=== PATIENT | male | born 1970 | race Hispanic/Latino ===

== ENCOUNTER 2016-07-07 12:12 | Inpatient (IN) | payer OTHER ==
[2016-07-07 15:10] LABS: Basophils % (Auto) 0.3 % (0.0-1.8); Eosinophils % (Auto) 1.2 % (0.0-4.3); Hematocrit 44.9 % (35.5-45.6); Hemoglobin 14.8 gm/dl (11.8-15.2); Mean Corpuscular HGB Conc 33 % (32-34); Mean Corpuscular Hemoglobin 28 pg (28-32); Mean Corpuscular Volume 85 fl (84-94); Platelet Count 261 K/mm3 (140-440); Red Blood Count 5.26 M/mm3 (3.65-5.03); Red Cell Distribution Width 13.4 % (13.2-15.2); White Blood Count 8.6 K/mm3 (4.5-11.0)
[2016-07-07 15:21] LABS: Anion Gap 17 mmol/L; Blood Urea Nitrogen 18 mg/dL (9-20); Calcium 9.6 mg/dL (8.4-10.2); Carbon Dioxide 26 mmol/L (22-30); Chloride 100.8 mmol/L (98-107); Glucose 74 mg/dL (75-100); Potassium 4.8 mmol/L (3.6-5.0); Sodium 139 mmol/L (137-145)
--- NOTE | 2016-07-07 15:53 | Consultation ---
History of Present Illness Consult date: 07/07/16 Requesting physician: JENN ERAZO Consult reason: chest pain History of present illness: The patient is a 45 year old male who is followed by Dr. Mcgrath in the office with a history of atrial fibrillation s/p ablation, CAD s/p PCI of LCX (04/2016) and RCA (01/2015), hypertension, hypothyroidism, gout who presented with complaints of substernal chest tightness ongoing for the past 2 days. Associated with shortness of breath, nausea and dizziness. He states the pain is worse with exertion and improves with rest. Troponin negative x 1. On 2016 he underwent PCI of 99% ostial circumflex with ANU. Cath revealed left main patent, LAD patent, RCA stent in the right posterolateral branch patent. He states that he has been compliant with all of his medications. Past History Past Medical History: atrial fib (s/p ablation (01/2015)), hypertension, hyperlipidemia, hypothyroidism, other (TIA, gout) Past Surgical History: appendectomy, hernia repair, Other (sinus surgery, afib ablation) Social history: , full code. denies: smoking, alcohol abuse, prescription drug abuse, IV drug use Family history: no significant family history Medications and Allergies Allergies Allergy/AdvReac Type Severity Reaction Status Date / Time moxifloxacin HCl Allergy Rash Verified 03/01/15 10:51 [From Avelox] peanut Allergy Swelling Verified 07/07/16 12:42 sulfamethoxazole Allergy Headache Verified 01/24/15 09:18 [From Bactrim] trimethoprim [From Bactrim] Allergy Headache Verified 03/01/15 10:51 Home Medications Medication Instructions Recorded Confirmed Last Taken Type Allopurinol [Zyloprim] 100 mg PO QDAY 11/06/14 05/09/16 02/26/15 History Cetirizine HCl [ZyrTEC] 10 mg PO DAILY 11/06/14 05/09/16 02/26/15 History Levothyroxine [Synthroid] 75 mcg PO QAM 11/06/14 05/09/16 02/26/15 History Montelukast [Singulair] 10 mg PO QPM 11/06/14 05/07/16 05/07/16 10:00 History 10 mg Diltiazem Cd [Cardizem CD] 180 mg PO QDAY #30 cap 11/07/14 05/09/16 05/06/16 10: 00 Rx 180 mg Apixaban [Eliquis] 5 mg PO BID 01/22/15 05/09/16 02/26/15 History Aspirin EC [Aspirin Enteric Coated 81 mg PO DAILY 03/01/15 05/09/16 02/26/15 History TAB] Cholecalciferol Vit D3 [Vitamin D3] 1 tab PO DAILY 03/01/15 05/09/16 05/06/16 09 :00 History Clopidogrel Bisulfate [Plavix] 75 mg PO DAILY 03/01/15 05/07/16 05/06/16 09:00 History 75 Fenofibrate [Lofibra] 160 mg PO DAILY 03/01/15 05/09/16 02/26/15 History Pantoprazole [Protonix TAB] 40 mg PO DAILY 03/01/15 05/07/16 05/06/16 10:00 History 40 mg Carisoprodol [Soma] 350 mg PO TID 05/07/16 05/07/16 05/07/16 09:00 History 350 mg Celecoxib 500 mg PO BID 05/07/16 05/07/16 05/06/16 09:00 History 500 Ezetimibe [Zetia] 10 mg PO DAILY 05/07/16 05/07/16 05/07/16 10:00 History 10 mg Ezetimibe [Zetia] 10 mg PO DAILY 05/07/16 05/09/16 Unknown History Lisinopril [Zestril TAB] 10 mg PO DAILY 05/07/16 05/07/16 05/06/16 10:00 History 10 mg Percocet 7.5/325 mg 7.5 mg PO PRN 05/07/16 05/07/16 Unknown History methOCARBAMOL [Robaxin TAB] 500 mg PO DAILY 05/07/16 05/07/16 05/06/16 09:00 History Review of Systems Constitutional: no fever, no chills Ears, nose, mouth and throat: no nasal congestion, no nasal discharge, no sinus pressure Cardiovascular: chest pain, shortness of breath Respiratory: shortness of breath, no cough, no congestion, no wheezing Gastrointestinal: nausea, no abdominal pain, no vomiting, no diarrhea, no constipation Genitourinary Male: no dysuria, no hematuria Musculoskeletal: no neck stiffness, no neck pain Integumentary: no rash, no pruritis Neurological: no parathesias, no numbness, no tingling, no headaches Endocrine: no cold intolerance, no heat intolerance Hematologic/Lymphatic: no easy bruising, no easy bleeding Allergic/Immunologic: no urticaria, no wheezing Physical Examination Vital Signs Temp Pulse Resp BP Pulse Ox 97.8 F 85 18 133/83 99 07/07/16 12:43 07/07/16 12:43 07/07/16 12:43 07/07/16 12:43 07/07/16 12:43 General appearance: mild distress (very anxious) HEENT: Positive: Normocephaly, Mucus Membranes Moist Neck: Positive: neck supple, trachea midline Cardiac: Positive: Reg Rate and Rhythm, S1/S2 Lungs: Positive: clear to auscultation Neuro: Positive: Grossly Intact Abdomen: Positive: Soft, Active Bowel Sounds. Negative: Tender Skin: Positive: Clear. Negative: Rash Extremities: Present: normal. Absent: edema Results 07/07/16 14:21 07/07/16 14:21 CBC 07/07/16 Range/Units 14:21 WBC 8.6 (4.5-11.0) K/mm3 RBC 5.26 H (3.65-5.03) M/mm3 Hgb 14.8 (11.8-15.2) gm/dl Hct 44.9 (35.5-45.6) % Plt Count 261 (140-440) K/mm3 Lymph # 1.2 (1.2-5.4) K/mm3 [place] # 0.7 (0.0-0.8) K/mm3 Eos # 0.1 (0.0-0.4) K/mm3 Baso # 0.0 (0.0-0.1) K/mm3 Comprehensive Metabolic Panel 07/07/16 Range/Units 14:21 Sodium 139 (137-145) mmol/L Potassium 4.8 (3.6-5.0) mmol/L Chloride 100.8 (98-107) mmol/L Carbon Dioxide 26 (22-30) mmol/L BUN 18 (9-20) mg/dL Creatinine 0.9 (0.8-1.5) mg/dL Glucose 74 L (75-100) mg/dL Calcium 9.6 (8.4-10.2) mg/dL - Imaging and Cardiology Echo: report reviewed (04/2016: EF 50-55%) EKG: image reviewed EKG interpretations - Telemetry EKG Rhythm: Sinus Rhythm - EKG Sinus rhythms and dysrhythmias: sinus rhythm Assessment and Plan Chest pain first troponin negative, will trend Echo 04/2016: EF 50-55% [facility] 05/09/16: PCI of 99% ostial circumflex with ANU, left main patent, LAD patent, RCA stent in the right posterolateral branch patent IV nitro gtt CAD s/p PCI of distal RCA at [place] (01/2015) and PCI of ostial LCX (04/2016) continue ASA, Plavix, tricor hx. of statin intolerance Atrial fibrillation s/p ablation 01/2015 currently sinus rhythm holding Eliquis if [facility] needed Hypertension stable Hyperlipidemia Hypothyroidism Obtain additional sets of enzymes. Lexiscan thallium stress test in am if enzymes remain negative. The patient has been seen in conjunction with Dr. Chowdhury who agrees with the assessment and plan of care. Thank you Dr. Erazo for allowing us to participate in the care of this patient.
--- NOTE | 2016-07-07 15:59 | Admit Criteria Form ---
Admission Criteria Documentation: CARDIOLOGY GRG Clinical Indications for Admission to Inpatient Care ( Place 'X' for any and all applicable criteria): Hospital admission is needed for appropriate care of the patient because of ANY ONE of the following (1): [ ] I. Hemodynamic instability as indicated by ALL of the following (1)(2)(3) (4)(5) [ ]a) Vital signs or other findings not as expected for chronic patient condition or baseline [ ]b) Instability indicated by ANY ONE of the following: [ ]i) Hypotension [ ]ii) Symptomatic Tachycardia unresponsive to treatment ( e.g., analgesia, fluids, sedation as indicated) [ ]iii) Inadequate perfusion indicated by ANY ONE of the following: [ ] 1) Lactic acidosis (> 2 mmol/L) [ ] 2) New abnormal capillary refill (> 3 seconds) [ ] 3) Reduced urine output [ ] 4) New altered mental status [ ]iv) Orthostatic vital sign changes unresponsive to treatment (e.g., fluids) [ ]v) IV inotropic or vasopressor medication required to maintain adequate blood pressure or perfusion [ ] II. Severe heart failure as indicated by ANY ONE of the following(17)(18) [ ]a) Respiratory distress [ ]b) Hypotension [ ]c) Anasarca (refractory to outpatient therapy) [ ]d) Cardiac arrhythmias of immediate concern [ ]e) Myocardial ischemia [ ] III. Cardiac arrhythmias or findings of immediate concern indicated by ANY ONE of the following (19)(20): [ ] a) Heart rhythms that are inherently dangerous or unstable indicated by ANY ONE of the following (21)(22)(23): [ ] i) Resuscitated ventricular fibrillation or cardiac arrest [ ] ii) Ventricular escape rhythm [ ] iii) Sustained ventricular tachycardia (30 seconds or more of ventricular rhythm at greater than 100 beats per minute) [ ] iv) Nonsustained ventricular tachycardia and ANY ONE of the following: [ ] 1) Suspected cardiac ischemia as cause or consequence of ventricular tachycardia [ ] 2) In setting of acute myocarditis [ ] b) Unstable cardiac conduction defects indicated by ANY ONE of the following(23)(24)(25) [ ] i) Type II second-degree atrioventricular block [ ]ii) Third-degree atrioventricular block [ ]iii) New-onset left bundle branch block with suspected myocardial ischemia [ ]c) Any heart rhythm and ANY ONE of the following (21)(22)(26)(27) (28) [ ] i) Continuous long-term ECG monitoring needed (e.g., initiation of drug requiring monitoring for more than 24 hours) [ ] ii) Patient has automatic implanted cardioverter defibrillator that is repeatedly firing, malfunctioning, or in need of immediate adjustment of settings beyond the scope of ambulatory or observation care [ ]d) Heart rhythms of concern due to ANY ONE of the following: [ ] i) Hypotension [ ] ii) Respiratory distress [ ] iii) Association with other significant symptoms (e.g., bradycardia with syncope or ongoing dizziness, supraventricular tachycardia with chest pain (14)(15)(17) [ ] IV. Monitoring for cardiac contusion beyond the scope of observation care needed [A](30)(31)(32) [ ] V. Surgical or device complication (e.g., valve replacement complication , pacemaker dysfunction) (35)(41)(44)(45)(46) [ ] . Inpatient palliative care needed. [B](49) Also use Inpatient Palliative Care Criteria [ ] VII. Nonbacterial thrombotic (marantic) endocarditis (36)(43)(47)(48) [X ] VIII. Cardiology condition, symptom, or finding for which emergency and observation care has failed or are not considered appropriate. [ ] IX. Acute valvular disease requiring inpatient as indicated by ANY ONE of the following (41) [ ]a) Acute valvular regurgitation (42) [ ]b) Noninfectious valvulitis (43) [ ]c) Obstructive valve thrombosis [ ]d) Paravalvular leak [ ]e) Other significant valvular disorder remaining after emergency or observation level of care (as appropriate) [ ]X. Pericardial disease requiring inpatient treatment as indicated by ANY ONE of the following (33)(34)(35)(36)(37) [ ]a) Suspected tamponade (38)(39)(40) [ ]b) Hemopericardium [ ]c) Other significant pericardial disorder remaining after emergency or observation level of care (as appropriate) [ ] XI. Cardiac ischemia beyond scope of emergency and observation care. [ ] XII. Hypertension requiring inpatient treatment as indicated by ANY ONE of the following (6)(7)(8) [ ]a) SBP greater than 220 mm Hg or DBP greater than 120 mmHg despite treatment [ ]b) SBP greater than 140 mm Hg or DBP greater than 100 mm Hg with evidence of acute end organ damage as indicated by ANY ONE of the following [ ] i) Altered mental status [ ] ii) Acute renal failure as indicated by new onset of ANY ONE of the following (9)(10)(11)(12)(13) [ ]1) 3-fold rise in serum creatinine from baseline [ ]2) Serum creatinine greater than 4 mg/dL ( 354 micromoles/L) with acute rise greater than 0.5 mg/dL (44.2 micromoles/L) [ ]3) Reduction of more than 75% in estimated glomerular filtration rate from baseline [ ]4) Estimated glomerular filtration rate less than 35 mL/min/1.73m2 (0.59 mL/sec/1.73m2) in child up to 18 years of age [ ]5) Cessation of urine output indicated by ALL of the following [ ]A. Adequate volume status [ ]B. Inadequate urine output as indicated by ANY ONE of the following [ ]a. Urine output less than 0.3 mL/kg/hr for 24 hours [ ]b. Anuria (urine output less than 0.1 mL/kg/hr) for 12 hours [ ] iii) Aortic dissection [ ] iv) Myocardial Ischemia [ ] v) Left ventricular heart failure [ ]vi) Retinal Hemorrhage [ ]vii) Other significant finding [ ]c) Hypertension in child requiring inpatient treatment as indicated by ALL of the following(14)(15)(16) [ ] i) Outpatient treatment not effective, not available, or not appropriate [ ]ii) SBP or DBP greater than 95th percentile for age [ ]iii) Evidence of acute end organ damage as indicated by ANY ONE of the following [ ]1) Altered mental status [ ]2) Acute renal failure as indicated by new onset of ANY ONE of the following(9)(10)(11)(12)(13) [ ]A. 3-fold rise in serum creatinine from baseline [ ]B. Serum creatinine greater than 4 mg/dL (354 micromoles/L) with acute rise greater than 0.5 mg/dL (44.2 micromoles/L) [ ]C. Reduction of more than 75% in estimated glomerular filtration rate from baseline [ ]D. Estimated glomerular filtration rate less than 35 mL/min/1.73m2 (0.59 mL/sec/1.73m2) in child up to 18 years of age [ ]E. Cessation of urine output indicated by ALL of the following [ ]a. Adequate volume status [ ]b. Inadequate urine output as indicated by ANY ONE of the following [ ]i) Urine output less than 0.3 mL/kg/hr for 24 hours [ ]ii) Anuria ( urine output less than 0.1 mL/kg/hr) for 12 hours [ ]3) Severe headache [ ]4) Visual disturbance [ ]5) Retinal hemorrhage [ ]6) Other significant finding [ ]XIII. Complications of transplanted heart indicated by ANY ONE of the following(61): [ ]a) Acute graft rejection requiring inpatient management (eg, intravenous immunosuppression)(62)(63) [ ]b) Acute graft heart failure indicated by ANY ONE of the following(64): [ ]i) Hemodynamic instability [ ]ii) Cardiac arrhythmias of immediate concern [ ]iii) Pulmonary edema that is very severe (eg, mechanical ventilation needed, imminent or likely, need for 100% oxygen to keep oxygen saturation above 90%) [ ]iv) Pulmonary edema that is persistent as indicated by ALL of the following: [ ]1) New need for oxygen therapy to keep oxygen saturation above 90% (or increased FiO2 need from baseline) [ ]2) Has not improved sufficiently with emergency department or observation care IV diuretics or other heart failure treatments[E] [ ]v) Altered mental status that is severe or persistent [ ]vi) Increased creatinine (new on laboratory test) with reduction of more than 50% in estimated glomerular filtration rate from baseline [ ]vii) Progressively (ongoing) rising creatinine (known from past laboratory test) with reduction of more than 25% in estimated glomerular filtration rate from baseline [ ]viii) Acute renal failure [ ]ix) Acute peripheral ischemia (eg, examination shows pulseless, cool, mottled, or cyanotic extremity) [ ]x) Pulmonary artery catheter monitoring needed [ ]xi) Other sign or symptom of heart failure requiring inpatient treatment (ie, too severe or not responsive to outpatient and observation care treatment) [ ]c) Infection requiring inpatient management (eg, Hemodynamic instability, need for intravenous antimicrobial treatment)(66)(67)(68)(69)(70) [ ]d) Cardiac allograft vasculopathy requiring inpatient management ( eg evidence of cardiac ischemia)(71) [ ]e) Other complication of transplanted heart (eg, stroke, severe pulmonary hypertension, severe valvular dysfunction) requiring inpatient management(72) The original [facility] content created by [facility] has been revised. The portions of the content which have been revised are identified through the use of italic text or in bold, and [facility] has neither reviewed nor approved the modified material. All other unmodified content is copyright [facility]. Please see references footnoted in the original [facility] edition 2016 Admission Criteria Met: Yes
[2016-07-07] MEDS: MORPHINE IV PRN ×2 (16:32→20:32)
--- NOTE | 2016-07-07 16:35 | Emergency Department Report ---
ED Chest Pain HPI - General Chief Complaint: Chest Pain Stated Complaint: CHEST PAIN/SOB/NAUSEA Time Seen by Provider: 07/07/16 16:19 Source: patient Mode of arrival: Ambulatory Limitations: No Limitations - History of Present Illness MD Complaint: chest pain -: Gradual Onset: during rest Pain Location: substernal Pain Radiation: none Severity: moderate Severity scale (0 -10): 4 Quality: tightness, heaviness Consistency: intermittent Improves With: nothing Worsens With: nothing re: nausea Treatments Prior to Arrival: aspirin, nitroglycerin Aspirin use within the Past 7 Days: (1) Yes - Related Data Home Medications Medication Instructions Recorded Confirmed Last Taken Levothyroxine [Synthroid] 75 mcg PO QAM 11/06/14 07/07/16 02/26/15 Montelukast [Singulair] 10 mg PO QPM 11/06/14 07/07/16 05/07/16 10:00 10 mg Apixaban [Eliquis] 5 mg PO BID 01/22/15 07/07/16 02/26/15 Aspirin EC [Aspirin Enteric Coated 81 mg PO DAILY 03/01/15 07/07/16 02/26/15 TAB] Clopidogrel Bisulfate [Plavix] 75 mg PO DAILY 03/01/15 07/07/16 05/06/16 09:00 75 Fenofibrate [Lofibra] 160 mg PO DAILY 03/01/15 07/07/16 02/26/15 Pantoprazole [Protonix TAB] 40 mg PO DAILY 03/01/15 07/07/16 05/06/16 10:00 40 mg Carisoprodol [Soma] 350 mg PO TID 05/07/16 07/07/16 05/07/16 09:00 350 mg Ezetimibe [Zetia] 10 mg PO DAILY 05/07/16 07/07/16 Unknown Lisinopril [Zestril TAB] 10 mg PO DAILY 05/07/16 07/07/16 05/06/16 10:00 10 mg methOCARBAMOL [Robaxin TAB] 500 mg PO DAILY 05/07/16 07/07/16 05/06/16 09:00 Previous Rx's Medication Instructions Recorded Last Taken Type Diltiazem Cd [Cardizem CD] 180 mg PO QDAY #30 cap 11/07/14 05/06/16 10:00 Rx 180 mg ISOSORBIDE MONOnitrate [Imdur ER] 30 mg PO DAILY #30 tab.er.24h 07/08/16 Unknown Rx Percocet 7.5/325 mg 7.5 mg PO BID PRN #14 07/08/16 Unknown Rx Allergies Allergy/AdvReac Type Severity Reaction Status Date / Time moxifloxacin HCl Allergy Rash Verified 03/01/15 10:51 [From Avelox] peanut Allergy Swelling Verified 07/07/16 12:42 sulfamethoxazole Allergy Headache Verified 01/24/15 09:18 [From Bactrim] trimethoprim [From Bactrim] Allergy Headache Verified 03/01/15 10:51 ROMA score - Roma Score Age > 65: (0) No Aspirin use within the Past 7 Days: (1) Yes 3 or more CAD Risk Factors: (0) No 2 or more Angina events in past 24 hrs: (0) No Known CAD with more than 50% Stenosis: (0) No Elevated Cardiac Markers: (0) No ST Deviation Greater than 0.5mm: (0) No ROMA Score: 1 ED Review of Systems ROS: Stated complaint: CHEST PAIN/SOB/NAUSEA Other details as noted in HPI Comment: All other systems reviewed and negative Constitutional: denies: chills, fever Eyes: denies: eye pain, eye discharge, vision change ENT: denies: ear pain, throat pain Respiratory: denies: cough, shortness of breath, wheezing Cardiovascular: denies: chest pain, palpitations Endocrine: no symptoms reported Gastrointestinal: denies: abdominal pain, nausea, diarrhea Genitourinary: denies: urgency, dysuria Musculoskeletal: denies: back pain, joint swelling, arthralgia Skin: denies: rash, lesions Neurological: denies: headache, weakness, paresthesias Psychiatric: denies: anxiety, depression Hematological/Lymphatic: denies: easy bleeding, easy bruising ED Past Medical Hx - Past Medical History Previous Medical History?: Yes Hx Hypertension: Yes Hx CVA: Yes (TIA x2 in November 2014) Hx Congestive Heart Failure: No Hx Diabetes: No Hx Liver Disease: Yes Hx Sickle Cell Disease: No Hx Asthma: No Hx COPD: No Hx HIV: No Additional medical history: AFIBHYPO THYROIDGOUTHIGH CHOL. cardiac stents x 2 - Surgical History Past Surgical History?: Yes Hx Coronary Stent: Yes (x 2) Additional Surgical History: cardiac albation - Social History Smoking Status: Never Smoker Substance Use Type: None - Medications Home Medications: Home Medications Medication Instructions Recorded Confirmed Last Taken Type Levothyroxine [Synthroid] 75 mcg PO QAM 11/06/14 07/07/16 02/26/15 History Montelukast [Singulair] 10 mg PO QPM 11/06/14 07/07/16 05/07/16 10:00 History 10 mg Diltiazem Cd [Cardizem CD] 180 mg PO QDAY #30 cap 11/07/14 07/07/16 05/06/16 10: 00 Rx 180 mg Apixaban [Eliquis] 5 mg PO BID 01/22/15 07/07/16 02/26/15 History Aspirin EC [Aspirin Enteric Coated 81 mg PO DAILY 03/01/15 07/07/16 02/26/15 History TAB] Clopidogrel Bisulfate [Plavix] 75 mg PO DAILY 03/01/15 07/07/16 05/06/16 09:00 History 75 Fenofibrate [Lofibra] 160 mg PO DAILY 03/01/15 07/07/16 02/26/15 History Pantoprazole [Protonix TAB] 40 mg PO DAILY 03/01/15 07/07/16 05/06/16 10:00 History 40 mg Carisoprodol [Soma] 350 mg PO TID 05/07/16 07/07/16 05/07/16 09:00 History 350 mg Ezetimibe [Zetia] 10 mg PO DAILY 05/07/16 07/07/16 Unknown History Lisinopril [Zestril TAB] 10 mg PO DAILY 05/07/16 07/07/16 05/06/16 10:00 History 10 mg methOCARBAMOL [Robaxin TAB] 500 mg PO DAILY 05/07/16 07/07/16 05/06/16 09:00 History ISOSORBIDE MONOnitrate [Imdur ER] 30 mg PO DAILY #30 tab.er.24h 07/08/16 Unknown Rx Percocet 7.5/325 mg 7.5 mg PO BID PRN #14 07/08/16 Unknown Rx ED Physical Exam - General Limitations: No Limitations General appearance: alert, in no apparent distress - Head Head exam: Present: atraumatic, normocephalic - Eye Eye exam: Present: normal appearance - ENT ENT exam: Present: mucous membranes moist - Neck Neck exam: Present: normal inspection - Respiratory Respiratory exam: Present: normal lung sounds bilaterally. Absent: respiratory distress - Cardiovascular Cardiovascular Exam: Present: regular rate, normal rhythm. Absent: systolic murmur, diastolic murmur, rubs, gallop - GI/Abdominal GI/Abdominal exam: Present: soft, normal bowel sounds - Rectal Rectal exam: Present: deferred - Extremities Exam Extremities exam: Present: normal inspection - Back Exam Back exam: Present: normal inspection - Neurological Exam Neurological exam: Present: alert, oriented X3 - Psychiatric Psychiatric exam: Present: normal affect, normal mood - Skin Skin exam: Present: warm, dry, intact, normal color. Absent: rash ED Course Vital Signs 07/07/16 07/07/16 07/07/16 12:43 13:18 14:00 Temperature 97.8 F Pulse Rate 85 92 H 78 Respiratory 18 20 18 Rate Blood Pressure 133/83 111/67 Blood Pressure [Left] O2 Sat by Pulse 99 94 97 Oximetry 07/07/16 07/07/16 07/07/16 14:08 14:09 15:00 Temperature 98.1 F Pulse Rate 75 81 Respiratory 16 16 17 Rate Blood Pressure 118/73 Blood Pressure 111/64 [Left] O2 Sat by Pulse 99 99 99 Oximetry 07/07/16 07/07/16 07/07/16 16:00 16:32 17:02 Temperature Pulse Rate 91 H Respiratory 15 18 18 Rate Blood Pressure 133/89 Blood Pressure [Left] O2 Sat by Pulse 97 Oximetry 07/07/16 07/07/16 07/07/16 17:17 18:00 19:00 Temperature Pulse Rate 86 78 82 Respiratory 16 14 16 Rate Blood Pressure 119/68 113/52 113/75 Blood Pressure [Left] O2 Sat by Pulse 97 97 95 Oximetry 07/07/16 07/07/16 07/07/16 20:00 20:32 21:00 Temperature Pulse Rate 79 75 Respiratory 17 18 15 Rate Blood Pressure 116/75 121/72 Blood Pressure [Left] O2 Sat by Pulse 97 98 Oximetry 07/07/16 07/07/16 07/07/16 21:02 22:00 22:57 Temperature Pulse Rate 109 H 84 Respiratory 18 15 Rate Blood Pressure 109/64 109/63 Blood Pressure [Left] O2 Sat by Pulse 95 Oximetry 07/07/16 07/07/16 07/07/16 23:00 23:20 23:21 Temperature Pulse Rate 81 84 Respiratory 11 L 13 18 Rate Blood Pressure 100/73 120/84 Blood Pressure [Left] O2 Sat by Pulse 95 97 Oximetry 07/07/16 23:30 Temperature Pulse Rate 90 Respiratory 15 Rate Blood Pressure 120/84 Blood Pressure [Left] O2 Sat by Pulse 95 Oximetry ED Medical Decision Making - Lab Data Result diagrams: 07/07/16 14:21 07/08/16 04:40 - EKG Data Interpretation: no acute changes - Medical Decision Making patient doing well in the ER , pain at 04/29 , consulted cards and agree with admission. significant cardiac history and describing same chest pain as the same as prior [place], first set of enzymes negative Critical care time in (mins) excluding proc time.: 35 Critical care attestation.: If time is entered above; I have spent that time in minutes in the direct care of this critically ill patient, excluding procedure time. ED Disposition Clinical Impression: Chest pain Qualifiers: Qualified Code(s): R07.89 - Other chest pain Disposition: OP ADMITTED IP TO THIS HOSP Is pt being admited?: Yes Does the pt Need Aspirin: Yes Condition: Good Time of Disposition: 16:34
[2016-07-07] MEDS ORDERED: TRIDIL DRIP 50MG/250ML 50 MG/250 ML BOTTLE IV SCH (17:00)
[2016-07-07] MEDS ORDERED: PERCOCET PO PRN (20:50)
--- NOTE | 2016-07-07 20:50 | History and Physical Report ---
History of Present Illness Date of examination: 07/07/16 Date of admission: 07/07/16 Chief complaint: L sided Chest pain. since 2 days History of present illness: The patient is a 45 year old male who is followed by Dr. Mcgrath in the office with a history of atrial fibrillation s/p ablation, CAD s/p PCI of LCX (04/2016) and RCA (01/2015), hypertension, hypothyroidism, gout who presented with complaints of substernal chest tightness ongoing for the past 2 days. Associated with shortness of breath, nausea and dizziness. He states the pain is worse with exertion and improves with rest. Troponin negative x 1. On 2016 he underwent PCI of 99% ostial circumflex with ANU. Cath revealed left main patent, LAD patent, RCA stent in the right posterolateral branch patent. He states that he has been compliant with all of his medications. Pain is 10/10. Past History Past Medical History: atrial fib (s/p ablation (01/2015)), hypertension, hyperlipidemia, hypothyroidism, other (TIA, gout) Past Surgical History: appendectomy, hernia repair, Other (sinus surgery, afib ablation) Social history: , full code. denies: smoking, alcohol abuse, prescription drug abuse, IV drug use Family history: no significant family history Medications and Allergies Allergies Allergy/AdvReac Type Severity Reaction Status Date / Time moxifloxacin HCl Allergy Rash Verified 03/01/15 10:51 [From Avelox] peanut Allergy Swelling Verified 07/07/16 12:42 sulfamethoxazole Allergy Headache Verified 01/24/15 09:18 [From Bactrim] trimethoprim [From Bactrim] Allergy Headache Verified 03/01/15 10:51 Home Medications Medication Instructions Recorded Confirmed Last Taken Type Levothyroxine [Synthroid] 75 mcg PO QAM 11/06/14 07/07/16 02/26/15 History Montelukast [Singulair] 10 mg PO QPM 11/06/14 07/07/16 05/07/16 10:00 History 10 mg Diltiazem Cd [Cardizem CD] 180 mg PO QDAY #30 cap 11/07/14 07/07/16 05/06/16 10: 00 Rx 180 mg Apixaban [Eliquis] 5 mg PO BID 01/22/15 07/07/16 02/26/15 History Aspirin EC [Aspirin Enteric Coated 81 mg PO DAILY 03/01/15 07/07/16 02/26/15 History TAB] Clopidogrel Bisulfate [Plavix] 75 mg PO DAILY 03/01/15 07/07/16 05/06/16 09:00 History 75 Fenofibrate [Lofibra] 160 mg PO DAILY 03/01/15 07/07/16 02/26/15 History Pantoprazole [Protonix TAB] 40 mg PO DAILY 03/01/15 07/07/16 05/06/16 10:00 History 40 mg Carisoprodol [Soma] 350 mg PO TID 05/07/16 07/07/16 05/07/16 09:00 History 350 mg Ezetimibe [Zetia] 10 mg PO DAILY 05/07/16 07/07/16 Unknown History Lisinopril [Zestril TAB] 10 mg PO DAILY 05/07/16 07/07/16 05/06/16 10:00 History 10 mg Percocet 7.5/325 mg 7.5 mg PO BID PRN 05/07/16 07/07/16 Unknown History methOCARBAMOL [Robaxin TAB] 500 mg PO DAILY 05/07/16 07/07/16 05/06/16 09:00 History Active Meds: Active Medications Aspirin (Baby Aspirin) 81 mg PO DAILY DEJA Clopidogrel Bisulfate (Plavix) 75 mg PO DAILY DEJA Nitroglycerin/Dextrose (Tridil Drip 50mg/250ml) 50 mg in 250 mls @ 3 mls/hr IV TITR DEJA; 10 MCG/MIN PRN Reason: Protocol Morphine Sulfate (Morphine) 2 mg IV Q4H PRN PRN Reason: Pain Last Admin: 07/07/16 20:32 Dose: 2 mg Review of Systems All systems: negative Constitutional: no weight loss, no weight gain Ears, nose, mouth and throat: no nasal discharge, no sinus pressure, no sinus pain, no hoarseness, no sore throat Cardiovascular: chest pain, shortness of breath Respiratory: no cough, no cough with sputum Gastrointestinal: no nausea, no vomiting, no diarrhea, no constipation Genitourinary Male: no hematuria, no flank pain, no discharge, no urinary frequency, no urinary hesitancy Musculoskeletal: no neck stiffness, no neck pain Integumentary: no rash, no pruritis, no redness Neurological: no seizures, no syncope Psychiatric: no anxiety, no depression Endocrine: no cold intolerance, no heat intolerance, no polyphagia, no excessive thirst Hematologic/Lymphatic: no easy bruising, no easy bleeding Allergic/Immunologic: no urticaria, no allergic rhinitis, no wheezing Exam - Physical Exam Narrative exam: Well developed well nourished male in slight distress b/c of chest pain - Constitutional Vitals: Temp Pulse Resp BP Pulse Ox 98.1 F 79 18 116/75 97 07/07/16 14:08 07/07/16 20:00 07/07/16 20:32 07/07/16 20:00 07/07/16 20:00 General appearance: Present: no acute distress, well-nourished - EENT Eyes: Present: PERRL ENT: hearing intact, clear oral mucosa - Neck Neck: Present: supple, normal ROM - Respiratory Respiratory effort: normal Respiratory: bilateral: CTA - Cardiovascular Rhythm: regular Heart Sounds: Present: S1 & S2. Absent: rub, click - Extremities Extremities: pulses symmetrical, No edema Peripheral Pulses: within normal limits - Abdominal General gastrointestinal: Present: soft, non-tender, non-distended, normal bowel sounds Male genitourinary: Present: normal - Rectal Rectal Exam: deferred - Integumentary Integumentary: Present: clear, warm, dry - Musculoskeletal Musculoskeletal: gait normal, strength equal bilaterally - Psychiatric Psychiatric: appropriate mood/affect, intact judgment & insight - Neurologic Neurologic: CNII-XII intact, moves all extremities - Allied Health Allied health notes reviewed: nursing, case management Results - Labs CBC & Chem 7: 07/07/16 14:21 07/08/16 04:40 Labs: Laboratory Last Values WBC 8.6 K/mm3 (4.5-11.0) 07/07/16 14:21 RBC 5.26 M/mm3 (3.65-5.03) H 07/07/16 14:21 Hgb 14.8 gm/dl (11.8-15.2) 07/07/16 14:21 Hct 44.9 % (35.5-45.6) 07/07/16 14:21 MCV 85 fl (84-94) 07/07/16 14:21 MCH 28 pg (28-32) 07/07/16 14:21 MCHC 33 % (32-34) 07/07/16 14:21 RDW 13.4 % (13.2-15.2) 07/07/16 14:21 Plt Count 261 K/mm3 (140-440) 07/07/16 14:21 Lymph % (Auto) 14.1 % (13.4-35.0) 07/07/16 14:21 Cochran % (Auto) 8.2 % (0.0-7.3) H 07/07/16 14:21 Eos % (Auto) 1.2 % (0.0-4.3) 07/07/16 14:21 Baso % (Auto) 0.3 % (0.0-1.8) 07/07/16 14:21 Lymph # 1.2 K/mm3 (1.2-5.4) 07/07/16 14:21 Cochran # 0.7 K/mm3 (0.0-0.8) 07/07/16 14:21 Eos # 0.1 K/mm3 (0.0-0.4) 07/07/16 14:21 Baso # 0.0 K/mm3 (0.0-0.1) 07/07/16 14:21 Seg Neutrophils % 76.2 % (40.0-70.0) H 07/07/16 14:21 Seg Neutrophils # 6.5 K/mm3 (1.8-7.7) 07/07/16 14:21 Sodium 139 mmol/L (137-145) 07/07/16 14:21 Potassium 4.8 mmol/L (3.6-5.0) 07/07/16 14:21 Chloride 100.8 mmol/L (98-107) 07/07/16 14:21 Carbon Dioxide 26 mmol/L (22-30) 07/07/16 14:21 Anion Gap 17 mmol/L 07/07/16 14:21 BUN 18 mg/dL (9-20) 07/07/16 14:21 Creatinine 0.9 mg/dL (0.8-1.5) 07/07/16 14:21 Estimated GFR > 60 ml/min 07/07/16 14:21 BUN/Creatinine Ratio 20.00 % 07/07/16 14:21 Glucose 74 mg/dL (75-100) L 07/07/16 14:21 Calcium 9.6 mg/dL (8.4-10.2) 07/07/16 14:21 Troponin T < 0.010 ng/mL (0.00-0.029) 07/07/16 18:52 Short CBC 07/07/16 Range/Units 14:21 WBC 8.6 (4.5-11.0) K/mm3 Hgb 14.8 (11.8-15.2) gm/dl Hct 44.9 (35.5-45.6) % Plt Count 261 (140-440) K/mm3 [facility] 07/07/16 14:21 Sodium 139 Potassium 4.8 Chloride 100.8 Carbon Dioxide 26 BUN 18 Creatinine 0.9 Glucose 74 L Calcium 9.6 Cardiac Enzymes 07/07/16 07/07/16 07/07/16 Range/Units 14:21 15:13 18:52 Troponin T < 0.010 < 0.010 < 0.010 (0.00-0.029) ng/mL Short CBC 07/07/16 Range/Units 14:21 WBC 8.6 (4.5-11.0) K/mm3 Hgb 14.8 (11.8-15.2) gm/dl Hct 44.9 (35.5-45.6) % Plt Count 261 (140-440) K/mm3 [facility] 07/07/16 07/08/16 14:21 04:40 Sodium 139 140 Potassium 4.8 4.7 Chloride 100.8 104.8 Carbon Dioxide 26 26 BUN 18 19 Creatinine 0.9 1.0 Glucose 74 L 91 Calcium 9.6 8.9 Cardiac Enzymes 07/07/16 07/07/16 07/07/16 Range/Units 14:21 15:13 18:52 Total Creatine Kinase (55-170) units/L CK-MB (CK-2) (0.0-4.0) ng/mL Troponin T < 0.010 < 0.010 < 0.010 (0.00-0.029) ng/mL 07/07/16 07/08/16 Range/Units 21:12 04:40 Total Creatine Kinase 112 102 (55-170) units/L CK-MB (CK-2) 1.7 1.6 (0.0-4.0) ng/mL Troponin T < 0.010 < 0.010 (0.00-0.029) ng/mL Liver Function 07/08/16 Range/Units 04:40 Total Bilirubin 0.3 (0.1-1.2) mg/dL AST 18 (5-40) units/L ALT 33 (7-56) units/L Alkaline Phosphatase 55 (35-129) units/L Albumin 4.2 (3.9-5) g/dL - Imaging and Cardiology EKG: report reviewed (NSR.No A fib.No acute ST T wave changes) Assessment and Plan Advance Directives: Yes (Full code) VTE prophylaxis?: Chemical Plan of care discussed with patient/family: Yes - Patient Problems (1) Angina pectoris, unstable Current Visit: Yes Status: Acute Plan to address problem: On IV Nitro -To ICU Chest pain first troponin negative, will trend Echo 04/2016: EF 50-55% [facility] 05/09/16: PCI of 99% ostial circumflex with ANU, left main patent, LAD patent, RCA stent in the right posterolateral branch patent IV nitro gtt (2) CAD (coronary artery disease) Current Visit: Yes Status: Chronic Qualifiers: Coronary Disease-Associated Artery/Lesion type: C [place] vs. transplanted heart: N Associated angina: with unstable angina Plan to address problem: CAD s/p PCI of distal RCA at [place] (01/2015) and PCI of ostial LCX (04/2016) continue ASA, Plavix, tricor hx. of statin intolerance (3) HTN (hypertension) Current Visit: No Status: Chronic Qualifiers: Hypertension type: essential hypertension Qualified Code(s): I10 - Essential (primary) hypertension Plan to address problem: Cont Diltiazem (4) Hypothyroidism Current Visit: No Status: Chronic Qualifiers: Hypothyroidism type: acquired Qualified Code(s): E03.9 - Hypothyroidism, unspecified Plan to address problem: Cont Synthyroid (5) Afib Current Visit: Yes Status: Resolved Qualifiers: Atrial fibrillation type: A Plan to address problem: Resolved (6) DVT prophylaxis Current Visit: Yes Status: Acute
[2016-07-07] MEDS ORDERED: MILK OF MAGNESIA PO PRN (20:52)
[2016-07-07] MEDS ORDERED: DULCOLAX PR PRN (20:52)
[2016-07-07] MEDS ORDERED: ZOFRAN IV PRN (20:52)
[2016-07-07] MEDS ORDERED: TYLENOL PO PRN (20:52)
[2016-07-07] MEDS ORDERED: SODIUM CHLORIDE FLUSH SYRINGE 10 ML IV PRN (20:55)
[2016-07-07] MEDS ORDERED: NON-FORMULARY (Fenofibrate [Lofibra] 160 MG) PO SCH (21:00)
[2016-07-07] MEDS ORDERED: D5NS 1,000 ML IV SCH (21:02)
[2016-07-07] MEDS ORDERED: PERCOCET 5/325 PO PRN (21:10)
[2016-07-07] MEDS: CARDIZEM CD PO SCH (22:00)
[2016-07-07] MEDS: ZETIA PO SCH (22:00)
[2016-07-07] MEDS ORDERED: ELIQUIS PO SCH (22:00)
[2016-07-07 22:08] LABS: Creatine Kinase MB 1.7 ng/mL (0.0-4.0)
[2016-07-07 22:10] LABS: Creatine Kinase 112 units/L (55-170)
[2016-07-07] MEDS ORDERED: PLAVIX ONE (22:49)
[2016-07-07] MEDS ORDERED: BABY ASPIRIN ONE (22:49)
[2016-07-07] MEDS ORDERED: PROTONIX PO ONE (22:49)
[2016-07-07] MEDS: HALFPRIN EC PO SCH (22:57)
[2016-07-07] MEDS: PROTONIX PO SCH (22:57)
[2016-07-07] MEDS: ZESTRIL PO SCH (22:57)
[2016-07-07] MEDS: PLAVIX PO SCH (22:58)
[2016-07-07] MEDS ORDERED: DILAUDID ONE (23:04)
[2016-07-07] MEDS: DILAUDID IV PRN (23:21)
[2016-07-08] MEDS: DILAUDID IV PRN ×3 (04:48→15:14)
[2016-07-08 05:51] LABS: Creatine Kinase MB 1.6 ng/mL (0.0-4.0)
[2016-07-08 05:54] LABS: Creatine Kinase 102 units/L (55-170)
[2016-07-08 05:55] LABS: Alanine Aminotransferase 33 units/L (7-56); Albumin 4.2 g/dL (3.9-5); Albumin/Globulin Ratio 1.8 %; Alkaline Phosphatase 55 units/L (35-129); Bilirubin,Total 0.3 mg/dL (0.1-1.2); Blood Urea Nitrogen 19 mg/dL (9-20); Calcium 8.9 mg/dL (8.4-10.2); Carbon Dioxide 26 mmol/L (22-30); Glucose 91 mg/dL (75-100); Total Protein 6.6 g/dL (6.3-8.2)
[2016-07-08 05:56] LABS: Anion Gap 14 mmol/L; Chloride 104.8 mmol/L (98-107); Potassium 4.7 mmol/L (3.6-5.0); Sodium 140 mmol/L (137-145)
[2016-07-08] MEDS ORDERED: SYNTHROID PO SCH (06:00)
--- NOTE | 2016-07-08 08:54 | Progress Note ---
Assessment and Plan Unstable angina troponin negative x 4 Echo 04/2016: EF 50-55% [facility] 05/09/16: PCI of 99% ostial circumflex with ANU, left main patent, LAD patent, RCA stent in the right posterolateral branch patent IV nitro gtt given persistent pain, will proceed with [facility] for definitive diagnosis CAD s/p PCI of distal RCA at [place] (01/2015) and PCI of ostial LCX (04/2016) continue ASA, Plavix, tricor hx. of statin intolerance Atrial fibrillation s/p ablation 01/2015 currently sinus rhythm holding Eliquis if [facility] needed Hypertension stable Hyperlipidemia Hypothyroidism Await left heart cath findings. The patient has been seen in conjunction with Dr. Chowdhury who agrees with the assessment and plan of care. Subjective Date of service: 07/08/16 Principal diagnosis: unstable angina Interval history: The patient is resting in bed. He continues to c/o substernal chest pain that waxes and wanes, currently 10/27. Nitro gtt at 20mcg/min. Sinus rhythm on the monitor. Objective Last Vital Signs Temp 97.7 F 07/08/16 08:00 Pulse 72 07/08/16 09:00 Resp 10 L 07/08/16 09:00 BP 117/73 07/08/16 09:00 Pulse Ox 97 07/08/16 09:00 - Physical Examination General: No Apparent Distress HEENT: Positive: Normocephaly, Mucus Membranes Moist Neck: Positive: neck supple, trachea midline Cardiac: Positive: Reg Rate and Rhythm, S1/S2 Lungs: Positive: clear to auscultation Neuro: Positive: Grossly Intact Abdomen: Positive: Soft, Active Bowel Sounds. Negative: Tender Skin: Positive: Clear. Negative: Rash Extremities: Present: normal. Absent: edema - Labs and Meds Cardiac Enzymes 07/07/16 07/08/16 07/08/16 Range/Units 21:12 04:40 04:40 AST 18 (5-40) units/L CK-MB (CK-2) 1.7 1.6 (0.0-4.0) ng/mL Comprehensive Metabolic Panel 07/08/16 Range/Units 04:40 Sodium 140 (137-145) mmol/L Potassium 4.7 (3.6-5.0) mmol/L Chloride 104.8 (98-107) mmol/L Carbon Dioxide 26 (22-30) mmol/L BUN 19 (9-20) mg/dL Creatinine 1.0 (0.8-1.5) mg/dL Glucose 91 (75-100) mg/dL Calcium 8.9 (8.4-10.2) mg/dL AST 18 (5-40) units/L ALT 33 (7-56) units/L Alkaline Phosphatase 55 (35-129) units/L Total Protein 6.6 (6.3-8.2) g/dL Albumin 4.2 (3.9-5) g/dL - Imaging and Cardiology EKG: report reviewed (NSR.No A fib.No acute ST T wave changes) Echo: report reviewed (04/2016: EF 50-55%) - Telemetry EKG Rhythm: Sinus Rhythm - EKG Sinus rhythms and dysrhythmias: sinus rhythm
[2016-07-08] MEDS ORDERED: NACL 0.9% 500 ML 500 ML IV SCH (09:00)
[2016-07-08] MEDS ORDERED: ROBAXIN PO SCH (10:00)
[2016-07-08] MEDS ORDERED: BABY ASPIRIN PO SCH (10:00)
[2016-07-08] MEDS ORDERED: TRICOR PO SCH (10:00)
[2016-07-08] MEDS ORDERED: PLAVIX PO SCH (10:00)
[2016-07-08 10:11] LABS: INR 1.03 (0.87-1.13)
[2016-07-08 10:13] LABS: Partial Thromboplastin Time 26.4 Sec. (24.2-36.6)
--- NOTE | 2016-07-08 11:05 | Consultation ---
History of Present Illness Consult date: 07/08/16 Requesting physician: DENNIS GREY History of present illness: PULMONARY/CCM CONSULT NOTE (Full dictation # [id number]) Please see dictated notes for full details Past History Past Medical History: atrial fib (s/p ablation (01/2015)), hypertension, hyperlipidemia, hypothyroidism, other (TIA, gout) Past Surgical History: appendectomy, hernia repair, Other (sinus surgery, afib ablation) Social history: , full code. denies: smoking, alcohol abuse, prescription drug abuse, IV drug use Family history: no significant family history Medications and Allergies Allergies Allergy/AdvReac Type Severity Reaction Status Date / Time moxifloxacin HCl Allergy Rash Verified 03/01/15 10:51 [From Avelox] peanut Allergy Swelling Verified 07/07/16 12:42 sulfamethoxazole Allergy Headache Verified 01/24/15 09:18 [From Bactrim] trimethoprim [From Bactrim] Allergy Headache Verified 03/01/15 10:51 Home Medications Medication Instructions Recorded Confirmed Last Taken Type Levothyroxine [Synthroid] 75 mcg PO QAM 11/06/14 07/07/16 02/26/15 History Montelukast [Singulair] 10 mg PO QPM 11/06/14 07/07/16 05/07/16 10:00 History 10 mg Diltiazem Cd [Cardizem CD] 180 mg PO QDAY #30 cap 11/07/14 07/07/16 05/06/16 10: 00 Rx 180 mg Apixaban [Eliquis] 5 mg PO BID 01/22/15 07/07/16 02/26/15 History Aspirin EC [Aspirin Enteric Coated 81 mg PO DAILY 03/01/15 07/07/16 02/26/15 History TAB] Clopidogrel Bisulfate [Plavix] 75 mg PO DAILY 03/01/15 07/07/16 05/06/16 09:00 History 75 Fenofibrate [Lofibra] 160 mg PO DAILY 03/01/15 07/07/16 02/26/15 History Pantoprazole [Protonix TAB] 40 mg PO DAILY 03/01/15 07/07/16 05/06/16 10:00 History 40 mg Carisoprodol [Soma] 350 mg PO TID 05/07/16 07/07/16 05/07/16 09:00 History 350 mg Ezetimibe [Zetia] 10 mg PO DAILY 05/07/16 07/07/16 Unknown History Lisinopril [Zestril TAB] 10 mg PO DAILY 05/07/16 07/07/16 05/06/16 10:00 History 10 mg methOCARBAMOL [Robaxin TAB] 500 mg PO DAILY 05/07/16 07/07/16 05/06/16 09:00 History ISOSORBIDE MONOnitrate [Imdur ER] 30 mg PO DAILY #30 tab.er.24h 07/08/16 Unknown Rx Percocet 7.5/325 mg 7.5 mg PO BID PRN #14 07/08/16 Unknown Rx Active Meds: Active Medications Acetaminophen (Tylenol) 650 mg PO Q4H PRN PRN Reason: Pain MILD(1-3)/Fever >100.5/FRANCOIS Apixaban (Eliquis) 5 mg PO BID [facility] Aspirin (Halfprin Ec) 81 mg PO DAILY [facility] Last Admin: 07/07/16 22:57 Dose: 81 mg Bisacodyl (Dulcolax) 10 mg MI QDAY PRN PRN Reason: Constipation unrelieved by MOM Carisoprodol (Soma) 350 mg PO TID [facility] Clopidogrel Bisulfate (Plavix) 75 mg PO DAILY [facility] Last Admin: 07/07/16 22:58 Dose: 75 mg Diltiazem HCl (Cardizem Cd) 180 mg PO QDAY [facility] Last Admin: 07/07/16 22:00 Dose: 180 mg Ezetimibe (Zetia) 10 mg PO DAILY [facility] Last Admin: 07/07/16 22:00 Dose: 10 mg Fenofibrate (Tricor) 145 mg PO DAILY [facility] Hydromorphone HCl (Dilaudid) 0.5 mg IV Q3H PRN PRN Reason: Pain , Severe (7-10) Last Admin: 07/08/16 08:45 Dose: 0.5 mg Nitroglycerin/Dextrose (Tridil Drip 50mg/250ml) 50 mg in 250 mls @ 3 mls/hr IV TITR DEJA; 10 MCG/MIN PRN Reason: Protocol Last Admin: 07/07/16 21:11 Dose: 10 mcg/min, 3 mls/hr Dextrose/Sodium Chloride (D5ns) 1,000 mls @ 75 mls/hr IV DIRECT DEJA Last Admin: 07/08/16 02:20 Dose: 75 mls/hr Sodium Chloride (Nacl 0.9% 500 Ml) 500 mls @ 50 mls/hr IV DIRECT DEJA Stop: 07/08/16 18:59 Levothyroxine Sodium (Synthroid) 75 mcg PO 0600 [facility] Last Admin: 07/08/16 06:17 Dose: 75 mcg Lisinopril (Zestril) 10 mg PO DAILY [facility] Last Admin: 07/07/16 22:57 Dose: Not Given Magnesium Hydroxide (Milk Of Magnesia) 30 ml PO Q4H PRN PRN Reason: Constipation Methocarbamol (Robaxin) 500 mg PO DAILY [facility] Montelukast Sodium (Singulair) 10 mg PO QPM [facility] Morphine Sulfate (Morphine) 2 mg IV Q4H PRN PRN Reason: Pain, Moderate (4-6) Last Admin: 07/07/16 20:32 Dose: 2 mg Ondansetron HCl (Zofran) 4 mg IV Q8H PRN PRN Reason: N/V unrelieved by Sindhu Last Admin: 07/08/16 06:17 Dose: 4 mg Oxycodone/Acetaminophen (Percocet 5/325) 1.5 tab PO BID PRN PRN Reason: Pain, Moderate (4-6) Pantoprazole Sodium (Protonix) 40 mg PO DAILY [facility] Last Admin: 07/07/16 22:57 Dose: 40 mg Sodium Chloride (Sodium Chloride Flush Syringe 10 Ml) 10 ml IV PRN PRN PRN Reason: LINE FLUSH Physical Examination Vital signs: Vital Signs Temp Pulse Resp BP Pulse Ox 97.8 F 85 18 133/83 99 07/07/16 12:43 07/07/16 12:43 07/07/16 12:43 07/07/16 12:43 07/07/16 12:43 Results - Laboratory Findings CBC and BMP: 07/07/16 14:21 07/08/16 04:40 PT/INR, D-dimer PT 13.4 Sec. (12.2-14.9) 07/08/16 09:23 INR 1.03 (0.87-1.13) 07/08/16 09:23
[2016-07-08] MEDS ORDERED: HEPARIN/NS 5000 UNIT/500ML(CATH LAB) 1,000 ML IR ONE (11:21)
[2016-07-08] MEDS ORDERED: XYLOCAINE 2% INFILTRATI ONE (11:22)
[2016-07-08] MEDS ORDERED: VERSED ONE (11:23)
[2016-07-08] MEDS ORDERED: ZOFRAN ONE (11:24)
[2016-07-08] MEDS ORDERED: SUBLIMAZE ONE (11:24)
[2016-07-08] MEDS: CALAN ONE ×2 (11:43→11:53)
[2016-07-08] MEDS: HEPARIN 10,000 UNITS/10 ML ONE ×2 (11:43→11:53)
[2016-07-08] MEDS: NITROGLYCERIN SYRINGE 3 ML ONE ×2 (11:43→11:53)
[2016-07-08] MEDS ORDERED: NACL 0.9% 1000 ML 0 ML ONE (11:56)
--- NOTE | 2016-07-08 13:24 | XRay Report ---
PORTABLE CHEST: An AP portable view of the chest demonstrates a normal cardiac contour considering the limits of this technique. The lungs are clear with no evidence of infiltrate, fluid or failure. IMPRESSION: Normal portable chest.
[2016-07-08] MEDS: SOMA PO SCH ×2 (13:34)
--- NOTE | 2016-07-08 13:45 | Cardiac Catherization Report ---
CARDIAC CATHETERIZATION REFERRING PHYSICIANS: 1. Radu Holley MD 2. Kee Chowdhury MD INDICATION FOR LEFT HEART CATHETERIZATION: The patient is a pleasant 45-year-old gentleman with recurrent chest pain, multiple PCIs, history of arrhythmia ablation, comes in with typical chest pain, on going waxing and waning. States it is very similar to previous episodes. Cardiac enzymes negative. Given his recent PCI and refractory symptoms of medications, he is referred for left heart catheterization. Risks, benefits, and alternatives discussed at length prior to obtaining informed consent. PROCEDURE IN DETAIL: The patient was brought to catheterization lab in postabsorptive state, prepped and draped in sterile fashion. Joaquín's test in right hand was normal. A 2 mL of 2% lidocaine used to anesthetize the right wrist. A standard 6-Welsh hydrophilic sheath used to cannulate the right radial artery via modified Seldinger technique. All exchanges performed to exchange a J-tip guidewire. JL3.5 catheter was used to engage the left main. No dampening or ventricularization. Cineangiography performed in all projections. JR4 catheter used to cross the aortic valve under fluoroscopic guidance. Left ventriculography performed in 30 [place]AR[place] and 30 [place] projections via hand injections, catheter flushed. Manual pullback performed with continuous pressure monitoring. Catheter used to engage the right coronary. No dampening or ventricularization. Cineangiography performed in multiple projections. Catheter removed from body of wire, sheath removed. Manual pressure used to achieve hemostasis. DATA: Aortic pressure is 110/70, LV pressure is 110, LVEDP of 9 mmHg. Left ventriculography revealed normal systolic performance with estimated ejection fraction of 55-60%. No evidence of aortic stenosis. CORONARY ANATOMY: This is a strongly right dominant system. Right coronary is a large vessel, courses AV groove, distally bifurcates in the posterior descending and posterolateral branch. No significant stenosis identified. Left main is a moderate sized vessel, no significant disease, bifurcates into left anterior descending and left circumflex. LAD is a moderate sized vessel, courses anterior intergroove, wraps around the apex, no significant disease in the LAD or diagonal system. Left circumflex is a moderate sized vessel, courses AV groove, proximal left circumflex stent is widely patent, no in-stent restenosis, ROMA 3 flow throughout. It should also be noted there is a patent stent in the right posterolateral branch. CONCLUSIONS: 1. No angiographic evidence of significant epicardial coronary artery disease in the strongly right dominant system. 2. Patent proximal left circumflex stent, which was recently placed. 3. Patent right posterolateral branch stent. 4. Normal left ventricular systolic performance. 5. No evidence of aortic stenosis. 6. Normal LVEDP. Recommend risk factor modification, diet and lifestyle modification and medication compliance. Results of the procedure were explained at length to the patient and his who is a nurse here as well. All questions and concerns were addressed. JOB# [id number] CATARINO/JAMES
[2016-07-08] MEDS ORDERED: ZOFRAN IV PRN (14:00)
--- NOTE | 2016-07-08 15:15 | Nuclear Medicine Report ---
LUNG SCAN, VENTILATION AND PERFUSION: History: Chest pain. Technique: 5mci of Tc99m MAA was infused for the perfusion images. 15mci XE 133 gas was inhaled for the ventilatory images. Correlation is made with a chest x-ray dated 07/08/16. Findings: Inhalation of Xenon gas demonstrates a normal distribution of the activity throughout both lungs. The wash out phases show no focal retention of activity. After injection of Technetium 99m macroaggregated albumin gamma camera imaging of the lungs in multiple projections demonstrates normal pulmonary contours with a homogeneous distribution of activity. No focal areas of perfusion deficiency are identified. IMPRESSION: Low probability for pulmonary embolus.
[2016-07-08] MEDS: CARDIZEM CD PO SCH (15:34)
[2016-07-08] MEDS: PLAVIX PO SCH (15:35)
[2016-07-08] MEDS: HALFPRIN EC PO SCH (15:35)
[2016-07-08] MEDS: PROTONIX PO SCH (15:35)
[2016-07-08] MEDS: ZESTRIL PO SCH (15:36)
[2016-07-08] MEDS: ZETIA PO SCH (15:36)
--- NOTE | 2016-07-08 16:12 | Discharge Summary ---
Providers - Providers Date of Admission: 07/07/16 20:52 Attending physician: EMI DUARTE MD 07/07/16 Consult to Cardiac Rehabilitation [CONS] Routine Reason For Exam: Phase I 07/07/16 20:56 Consult to Physician [CONS] Routine Consulting Provider: JESUS VALE Reason For Exam: cad Place consult to:: angeline lopez Notified:: yes 07/08/16 08:19 Consult to Physician [CONS] Routine Consulting Provider: PAULA COLON Reason For Exam: Chest pain Place consult to:: Angeline Lopez Notified:: yes Phone number called:: [phone] Was contact made?: Yes Comment:: notified 07/07/16 07/08/16 11:06 Consult to Physician [CONS] Routine Consulting Provider: ALIN RIGGINS Reason For Exam: CRITICAL CARE Place consult to:: DR. RIGGINS Notified:: YES 07/08/16 13:19 Consult to Cardiac Rehabilitation [CONS] Routine Reason For Exam: Cardiac Rehab Evaluation Primary care physician: [employer] Hospitalization Condition: Good Hospital course: 45-year-old male with a past medical history of coronary artery disease with a history of recent cardiac stents. He presented with 1 day of chest pain, serial troponins were negative and hence ruled out for ACS. He went on to have a VQ scan that was low probability for PE, and then he had left heart cath that was negative for any new significant obstructive disease, and stents was patent. Cardiology: [facility], medical management was recommended, and nitrate was added. Of note he was continued on the rest of his home medications for treatment of hypertension, hypothyroidism and paroxysmal atrial fibrillation Diagnosis 1. Chest pain due to CAD 2. Hypertension 3. Paroxysmal atrial fibrillation 4. Hypothyroidism Disposition: DISCHARGED TO HOME OR SELFCARE Time spent for discharge: 35 minutes Core Measure Documentation - Palliative Care Palliative Care/ Comfort Measures: Not Applicable - Core Measures Any of the following diagnoses?: none Exam - Constitutional Vitals: Temp Pulse Resp BP Pulse Ox 98 F 72 14 129/75 97 07/08/16 12:45 07/08/16 15:36 07/08/16 15:16 07/08/16 15:36 07/08/16 15:16 General appearance: Present: no acute distress, well-nourished - EENT Eyes: Present: PERRL ENT: hearing intact, clear oral mucosa - Neck Neck: Present: supple, normal ROM - Respiratory Respiratory effort: normal Respiratory: bilateral: CTA - Cardiovascular Heart Sounds: Present: S1 & S2. Absent: rub, click - Extremities Extremities: pulses symmetrical, No edema Peripheral Pulses: within normal limits - Abdominal General gastrointestinal: Present: soft, non-tender, non-distended, normal bowel sounds Male genitourinary: Present: normal - Integumentary Integumentary: Present: clear, warm, dry - Musculoskeletal Musculoskeletal: gait normal, strength equal bilaterally - Psychiatric Psychiatric: appropriate mood/affect, intact judgment & insight - Neurologic Neurologic: CNII-XII intact, moves all extremities Plan Follow up with: PRIMARY CARE, [Primary Care Provider] - 3-5 Days Forms: Work/School Release Form Prescriptions: ISOSORBIDE MONOnitrate [Imdur ER] 30 mg PO DAILY #30 tab.er.24h Percocet 7.5/325 mg 7.5 mg PO BID PRN #14 PRN Reason: Pain
[2016-07-08] MEDS ORDERED: IMDUR PO SCH (17:00)
[2016-07-08 17:47] VITALS: BP 128/72
[2016-07-08] MEDS ORDERED: SINGULAIR PO SCH (18:00)
--- NOTE | 2016-07-10 01:48 | Consultation ---
CONSULTING PHYSICIAN: Delfina Ontiveros MD REASON FOR CONSULTATION: Acute coronary syndrome. CHIEF COMPLAINT AND HISTORY OF PRESENT ILLNESS: The patient is a 45-year-old male with past medical history significant amongst other things for a diagnosis of coronary artery disease, status post percutaneous intervention of left circumflex in 04/2016, also history of hypertension, came into the Emergency Room complaining of substernal chest tightness with nausea and vomiting, had been going on for a couple of days, was getting worse. He developed shortness of breath, dizziness on the day he presented, it seemed like his prior angina symptoms. He was evaluated in the Emergency Room. Troponin was negative. He required transfer to the laborer beam house and post-laborer beam house came into the Intensive Care Unit where I stopped by to see him. Reportedly, coronaries were clean. He stated that the chest pain was still present, but a little bit better, no longer having any nausea. He does have a 20+ pack year tobacco smoking history. According to the patient, at one point smoking up to 3 packs of cigarettes a day. That really was the history of presentation. PAST MEDICAL HISTORY: Hypertension, hyperlipidemia, hypothyroidism, transient ischemic attack in the past, gout, history of atrial fibrillation, status post ablation in 01/2015. PAST SURGICAL HISTORY: He has had an appendectomy, herniorrhaphy, and sinus surgery. MEDICATIONS: He was on at the time I stopped by to see him, according to the medication administration record included the following: Tylenol 650 mg p.o. q.4h. p.r.n., Eliquis 5 mg p.o. b.i.d., aspirin 81 mg p.o. daily, p.r.n. Dulcolax, Soma 350 mg p.o. t.i.d., Plavix 75 mg p.o. daily, Cardizem 180 mg p.o. daily extended release, Zetia 10 mg p.o. daily, Tricor 145 mg p.o. daily, and he was just coming off IV heparin drip, Imdur 30 mg p.o. daily, Levoxyl 75 mcg p.o. daily, p.r.n. milk of magnesia, Zestril 10 mg p.o. daily, Robaxin 500 mg p.o. daily, Singulair 10 mg p.o. at bedtime, had been on a Tridil drip earlier. Zofran 4 mg IV q.8 hours p.r.n., Protonix 40 mg p.o. daily, Percocet 5/325 mg p.o. b.i.d. p.r.n. moderate pain. ALLERGIES: , to peanuts, to Bactrim. Nature of this allergy is unknown. DIET: Slightly obese gentleman. Denies any significant weight loss or gain in the preceding few weeks to months. FAMILY AND SOCIAL HISTORY: He is , lives in the community. A 20+ pack year tobacco smoking history, remote. No longer smokes. Denies alcohol or illicit drug use or abuse. REVIEW OF SYSTEMS: No loss of consciousness. No new onset seizures. No new onset focal weakness. No gross hematochezia or melena. No gross hematuria or dysuria. No hematemesis. No hemoptysis. No palpitations. Complete review of systems obtained. Pertinent positives and/or negatives as in body of history above, otherwise noncontributory. PHYSICAL EXAMINATION: VITAL SIGNS: At initial presentation, he was afebrile, temperature 97.8, pulse was 85, respiratory rate was 18, blood pressure was oxygen sats were 99%, inspired oxygen concentration was not recorded. HEAD, EYES, EARS, NOSE, AND THROAT: Pupils are equal, round, reactive to light, about 3-4 mm. Extraocular muscle movements were intact. NECK: Grossly, there were no palpable lymph nodes in the supraclavicular or submandibular lymph node chains. LUNGS: Auscultation of both lung mi was unremarkable. Lungs were clear bilaterally. HEART: Heart sounds 1 and 2 were heard, regular rate and rhythm at the time of my evaluation. ABDOMEN: Soft, full, bowel sounds were positive, nontender. EXTREMITIES: Without overt digital clubbing, cyanosis, or pedal edema. NEUROLOGIC: The exam was grossly nonfocal. LABORATORY DATA: From my review are as follows: White cell count 8600 with a hemoglobin of 14.8, hematocrit of 44.9, platelets of 261. INR 1.03. Serum sodium was 139, potassium 4.8, chloride 101, BUN 18, creatinine 0.9, glucose 74. Troponin, cardiac enzymes negative. RADIOGRAPHIC STUDIES: I do not have any for review. ASSESSMENT AND PLAN: We have a middle-aged gentleman in with an acute coronary syndrome, appears this might not be cardiac related. I do think that we need to broaden differential a little bit. I will do a quick venosus thromboembolic disorder workup. We will go ahead and get a V/Q scan right away and make sure that we are not dealing with the pulmonary embolus as a cause of the symptoms. Otherwise, I would defer to the admitting physicians and the assisted living assistant for further management. He will be on GI and DVT prophylaxis. Flu and pneumonia vaccination will be per protocol. Thank you very much for the consult Dr. Ontiveros. We will follow along and make further recommendations as picture progresses/becomes clearer. JOB# [id number] RAYA/JAMES
== END 2016-07-08 18:15 | disposition home or self-care (01) | DRG 287 ==
LOC: ED 12:12 → CC1 20:52
PROVIDERS: ADMIT Internal Medicine; ATTEND Internal Medicine
PROC: B2151ZZ Fluoroscopy of Left Heart using Low Osmolar Contrast (ICD-10-PCS; principal; 2016-07-08)
PROC: 4A023N7 Measurement of Cardiac Sampling and Pressure, Left Heart, Percutaneous Approach (ICD-10-PCS; principal; 2016-07-08)
PROC: B2111ZZ Fluoroscopy of Multiple Coronary Arteries using Low Osmolar Contrast (ICD-10-PCS; principal; 2016-07-08)
DX: I25.110 Atherosclerotic heart disease of native coronary artery with unstable angina pectoris (principal); I10 Essential (primary) hypertension; I48.91 Unspecified atrial fibrillation; E03.9 Hypothyroidism, unspecified; Z88.8 Allergy status to other drugs, medicaments and biological substances; Z79.82 Long term (current) use of aspirin; E78.5 Hyperlipidemia, unspecified; Z86.73 Personal history of transient ischemic attack (TIA), and cerebral infarction without residual deficits
CPT/HCPCS: 36415; 71010; 78582; 80048; 80053; 82550; 82553; 82962; 83036; 84484; 85025; 85379; 85610; 85730; 93005; 93010; 93458; 96374; 96375; A9540; A9558; C1894; J1170; J1644; J2250; J2270; J2405; J3010; J7030; J7042; Q9967

== ENCOUNTER 2017-01-08 14:14 | Inpatient (IN) | payer OTHER ==
--- NOTE | 2017-01-08 14:51 | History and Physical Report ---
History of Present Illness Date of examination: 01/08/17 Date of admission: 01/08/17 14:14 Chief complaint: CC Chest pain 2 days Palpitations 2 days. History of present illness: OMAHA: 46 y/o male with Hx of A fib HTN HLD Hypothyroidism obesity and back pain sent from [facility] for recurrent Chest pain and palpitations of 2 days duration.Pain is worse when palpitations occur.no diaphoresis.No SOB.Pain is 7/10 dull in character. No radiation.Retrosternal.Noexacerbating or relieving factors Past History Past Medical History: atrial fib, CAD, hypertension, hyperlipidemia, hypothyroidism Past Surgical History: No surgical history Social history: lives with family, smoking, full code Family history: hypertension Medications and Allergies Allergies Allergy/AdvReac Type Severity Reaction Status Date / Time moxifloxacin HCl Allergy Rash Verified 03/01/15 10:51 [From Avelox] peanut Allergy Swelling Verified 07/07/16 12:42 sulfamethoxazole Allergy Headache Verified 01/24/15 09:18 [From Bactrim] trimethoprim [From Bactrim] Allergy Headache Verified 03/01/15 10:51 Home Medications Medication Instructions Recorded Confirmed Last Taken Type Levothyroxine [Synthroid] 75 mcg PO QAM 11/06/14 07/07/16 01/08/17 09:00 History Montelukast [Singulair] 10 mg PO QPM 11/06/14 07/07/16 01/07/17 22:00 History Diltiazem Cd [Cardizem CD] 180 mg PO QDAY #30 cap 11/07/14 07/07/16 01/07/17 22: 00 Rx Apixaban [Eliquis] 5 mg PO BID 01/22/15 07/07/16 01/08/17 09:00 History Clopidogrel Bisulfate [Plavix] 75 mg PO DAILY 03/01/15 07/07/16 01/07/17 22:00 History Fenofibrate [Lofibra] 160 mg PO DAILY 03/01/15 07/07/16 01/07/17 22:00 History Pantoprazole [Protonix TAB] 40 mg PO DAILY 03/01/15 07/07/16 01/07/17 22:00 History Carisoprodol [Soma] 350 mg PO QID 05/07/16 07/07/1601/08/17 09:00 History Ezetimibe [Zetia] 10 mg PO DAILY 05/07/16 07/07/16 01/08/17 09:00 History Lisinopril [Zestril TAB] 10 mg PO DAILY 05/07/16 07/07/16 01/08/17 09:00 History Percocet 7.5/325 mg 7.5 mg PO BID PRN #14 07/08/16 01/07/17 12:00 Rx Gabapentin 600 PO TID 01/08/17 01/08/17 15:00 History Testosterone Cypionate 01/08/17 12/31/16 22:00 History ZyrTEC 10 mg PO DAILY 01/08/17 01/08/17 01/07/17 22:00 History Review of Systems All systems: negative Constitutional: no weight loss, no weight gain, no fever, no chills Ears, nose, mouth and throat: no dysphagia, no hoarseness, no sore throat Cardiovascular: chest pain, palpitations, rapid/irregular heart beat, lightheadedness, shortness of breath Respiratory: no cough, no cough with sputum, no excessive sputum, no hemoptysis , no shortness of breath, no dyspnea on exertion Gastrointestinal: no abdominal pain, no nausea, no vomiting, no diarrhea, no constipation, no change in bowel habits, no hematemesis, no coffee ground emesis Genitourinary Male: no dysuria, no hematuria, no flank pain, no discharge, no urinary frequency, no urinary hesitancy, no nocturia, no incontinence, no erectile dysfunction, no genital pain Rectal: no pain Musculoskeletal: no neck stiffness, no neck pain, no shooting arm pain, no arm numbness/tingling, no low back pain, no shooting leg pain, no leg numbness/ tingling Integumentary: no rash, no pruritis, no redness, no sores Neurological: no head injury, no transient paralysis, no paralysis, no weakness , no seizures, no syncope Psychiatric: no anxiety, no memory loss, no change in sleep habits, no sleep disturbances, no insomnia Endocrine: no cold intolerance, no heat intolerance, no polyphagia, no excessive thirst, no polydipsia, no polyuria Exam - Constitutional General appearance: Present: no acute distress, well-nourished - EENT Eyes: Present: PERRL ENT: hearing intact, clear oral mucosa - Neck Neck: Present: supple, normal ROM - Respiratory Respiratory effort: normal Respiratory: bilateral: CTA - Cardiovascular Heart rate: 80 (A fib) Rhythm: irregularly irregular Heart Sounds: Present: S1 & S2. Absent: rub, click - Extremities Extremities: no ischemia, pulses intact, pulses symmetrical, No edema Peripheral Pulses: within normal limits - Abdominal General gastrointestinal: Present: soft, non-tender, non-distended, normal bowel sounds Male genitourinary: Present: normal - Rectal Rectal Exam: deferred - Integumentary Integumentary: Present: clear, warm, dry - Musculoskeletal Musculoskeletal: gait normal, strength equal bilaterally - Psychiatric Psychiatric: appropriate mood/affect, intact judgment & insight - Neurologic Neurologic: CNII-XII intact, moves all extremities - Allied Health Allied health notes reviewed: nursing, case management Results - Labs CBC & Chem 7: 01/09/17 05:19 01/09/17 05:08 - Imaging and Cardiology EKG: report reviewed Assessment and Plan Advance Directives: Yes (Full code) VTE prophylaxis?: Chemical Plan of care discussed with patient/family: Yes - Patient Problems (1) Unstable angina Current Visit: No Status: Acute Plan to address problem: Defer to cardiology Patient to be on IV Heparin Cont Diltiazem Cath in AM (2) Atrial fibrillation, rapid Current Visit: No Status: Acute Plan to address problem: Patient on Diltiazem.Eliquis on Hold.Cont Plavix For Cath in AM (3) Hypothyroidism (acquired) Current Visit: Yes Status: Chronic Plan to address problem: Cont Levothroxine (4) HLD (hyperlipidemia) Current Visit: Yes Status: Chronic Qualifiers: Hyperlipidemia type: mixed hyperlipidemia Qualified Code(s): E78.2 - Mixed hyperlipidemia Plan to address problem: Cont Zetia and Fenofibrate (5) HTN (hypertension) Current Visit: Yes Status: Chronic Qualifiers: Hypertension type: essential hypertension Qualified Code(s): I10 - Essential (primary) hypertension Plan to address problem: Cont antihypertensives (6) Chronic pain Current Visit: Yes Status: Chronic Qualifiers: Chronic pain type: other chronic pain Qualified Code(s): G89.29 - Other chronic pain Plan to address problem: Cont Percocet (7) DVT prophylaxis Current Visit: No Status: Acute Plan to address problem: On Lovenox/Heparin
[2017-01-08] MEDS ORDERED: DULCOLAX PR PRN ×2 (14:52→15:20)
[2017-01-08] MEDS ORDERED: ZOFRAN IV PRN (14:52)
[2017-01-08] MEDS ORDERED: TYLENOL PO PRN ×2 (14:52→15:20)
[2017-01-08] MEDS ORDERED: MILK OF MAGNESIA PO PRN ×2 (14:52→15:20)
[2017-01-08] MEDS ORDERED: PERCOCET 5/325 PO PRN (14:52)
[2017-01-08] MEDS ORDERED: AMBIEN PO PRN ×2 (14:52→15:20)
[2017-01-08] MEDS ORDERED: NACL 0.45% 1000 ML 1,000 ML IV SCH (15:00)
[2017-01-08] MEDS: PERCOCET 5/325 PO PRN ×2 (16:20→21:51)
[2017-01-08 16:27] LABS: Basophils % (Auto) 0.5 % (0.0-1.8); Eosinophils % (Auto) 2.1 % (0.0-4.3); Hematocrit 43.8 % (35.5-45.6); Hemoglobin 14.3 gm/dl (11.8-15.2); Mean Corpuscular HGB Conc 33 % (32-34); Mean Corpuscular Hemoglobin 29 pg (28-32); Mean Corpuscular Volume 88 fl (84-94); Platelet Count 243 K/mm3 (140-440); Red Blood Count 5.01 M/mm3 (3.65-5.03); Red Cell Distribution Width 14.3 % (13.2-15.2); White Blood Count 5.6 K/mm3 (4.5-11.0)
[2017-01-08 16:41] LABS: INR 1.11 (0.87-1.13); Partial Thromboplastin Time 27.5 Sec. (24.2-36.6)
[2017-01-08 16:48] LABS: Creatine Kinase MB 1.8 ng/mL (0.0-4.0)
[2017-01-08 16:49] LABS: Alanine Aminotransferase 36 units/L (7-56); Albumin 4.6 g/dL (3.9-5); Albumin/Globulin Ratio 1.9 %; Alkaline Phosphatase 68 units/L (35-129); Anion Gap 18 mmol/L; BUN/Creatinine Ratio 14.44; Blood Urea Nitrogen 13 mg/dL (9-20); Calcium 9.3 mg/dL (8.4-10.2); Carbon Dioxide 24 mmol/L (22-30); Glucose 114 mg/dL (75-100); Potassium 4.1 mmol/L (3.6-5.0); Sodium 140 mmol/L (137-145)
[2017-01-08 16:50] LABS: Creatine Kinase 166 units/L (55-170)
[2017-01-08] MEDS: NACL 0.45% 1000 ML 1,000 ML IV SCH (17:04)
--- NOTE | 2017-01-08 17:54 | Event Note ---
Date: 01/08/17 -[address] changes -start nitropaste ASA/Plavix Hold Eliquis Now NPO after midnight start heparin gtt 5AM
[2017-01-08] MEDS: PEPCID IV SCH (21:40)
[2017-01-08] MEDS: ZOFRAN IV PRN (21:55)
[2017-01-08] MEDS ORDERED: PEPCID IV SCH (22:00)
[2017-01-08 22:29] LABS: Creatine Kinase 139 units/L (55-170); Creatine Kinase MB 1.4 ng/mL (0.0-4.0)
[2017-01-09 06:20] LABS: Anion Gap 15 mmol/L; Blood Urea Nitrogen 14 mg/dL (9-20); Calcium 8.6 mg/dL (8.4-10.2); Carbon Dioxide 26 mmol/L (22-30); Chloride 104.9 mmol/L (98-107); Glucose 113 mg/dL (75-100); Potassium 3.7 mmol/L (3.6-5.0); Sodium 142 mmol/L (137-145)
[2017-01-09 06:20] LABS: Hematocrit 41.8 % (35.5-45.6); Hemoglobin 13.7 gm/dl (11.8-15.2); Mean Corpuscular HGB Conc 33 % (32-34); Mean Corpuscular Hemoglobin 29 pg (28-32); Mean Corpuscular Volume 88 fl (84-94); Platelet Count 219 K/mm3 (140-440); Red Blood Count 4.78 M/mm3 (3.65-5.03); Red Cell Distribution Width 14.1 % (13.2-15.2); White Blood Count 5.6 K/mm3 (4.5-11.0)
[2017-01-09 06:26] LABS: Creatine Kinase MB 1.4 ng/mL (0.0-4.0)
[2017-01-09 06:27] LABS: Creatine Kinase 115 units/L (55-170)
[2017-01-09 06:30] LABS: INR 1.07 (0.87-1.13)
[2017-01-09] MEDS: PERCOCET 5/325 PO PRN ×2 (08:34→17:40)
[2017-01-09] MEDS: ROXICODONE PO PRN ×2 (08:35→17:41)
[2017-01-09] MEDS: NEURONTIN PO SCH ×3 (10:00→20:03)
[2017-01-09] MEDS: LOVENOX SUB-Q SCH (10:00)
[2017-01-09] MEDS: SOMA PO SCH ×4 (10:00→21:36)
[2017-01-09] MEDS ORDERED: LOVENOX SUB-Q SCH (10:00)
--- NOTE | 2017-01-09 10:08 | Cat Scan Report ---
FINAL REPORT EXAM: CT CHEST W CON HISTORY: chest pain radiating to back, r/o dissection TECHNIQUE: CTA of chest with IV contrast. Coronal and sagittal and MIP reconstructed images provided. PRIORS: None currently available. FINDINGS: No pneumothorax. No effusion. No consolidation. No endobronchial lesion. No significant pulmonary nodules. Mild bibasilar dependent subsegmental atelectasis. Main pulmonary arteries are unremarkable. No pulmonary embolus. No aortic aneurysm. No dissection. Heart size unremarkable. No pericardial effusion. There is no axillary adenopathy. There is no hilar or mediastinal mass or adenopathy. Images of the esophagus are unremarkable. Heterogenous thyroid gland. Nodules not excluded but evaluation with thyroid ultrasound recommended if clinically indicated. No suspicious osseous lesions on this limited examination of the skeleton. Metastatic disease better evaluated with bone scan. Degenerative changes are present in the spine. IMPRESSION: No acute findings.
[2017-01-09] MEDS ORDERED: LEXISCAN IV ONE ×2 (10:10→10:12)
[2017-01-09] MEDS: ZOFRAN IV PRN ×2 (11:49→20:12)
[2017-01-09] MEDS ORDERED: ZOFRAN ONE (11:51)
--- NOTE | 2017-01-09 11:59 | Consultation ---
History of Present Illness Consult date: 01/09/17 Requesting physician: DENNIS GREY Consult reason: chest pain History of present illness: 46-year-old gentleman with a past medical history of coronary artery disease status post stent to the right coronary artery and left circumflex artery stent in April 2016, paroxysmal atrial fibrillation status post pulmonary vein isolation in December 2014, hypoglycemia, transient ischemic attack, hypothyroidism and gout presents complaining of chest pain with associated shortness of breath. The patient reports that the chest pain is severe and radiating to his back. The patient had a CTA of the chest which did not reveal any pulmonary embolus or aortic dissection. EKG did not reveal any acute changes. Cardiac enzymes are negative. Past History Past Medical History: atrial fib, CAD, hypertension, hyperlipidemia, hypothyroidism Past Surgical History: No surgical history Social history: lives with family, smoking, full code Family history: hypertension Medications and Allergies Allergies Allergy/AdvReac Type Severity Reaction Status Date / Time moxifloxacin HCl Allergy Rash Verified 03/01/15 10:51 [From Avelox] peanut Allergy Swelling Verified 07/07/16 12:42 sulfamethoxazole Allergy Headache Verified 01/24/15 09:18 [From Bactrim] trimethoprim [From Bactrim] Allergy Headache Verified 03/01/15 10:51 Home Medications Medication Instructions Recorded Confirmed Last Taken Type Levothyroxine [Synthroid] 75 mcg PO QAM 11/06/14 01/09/17 01/08/17 09:00 History Montelukast [Singulair] 10 mg PO QPM 11/06/14 01/09/17 01/07/17 22:00 History Diltiazem Cd [Cardizem CD] 180 mg PO QDAY #30 cap 11/07/14 01/09/17 01/07/17 22: 00 Rx Apixaban [Eliquis] 5 mg PO BID 01/22/15 01/09/17 01/08/17 09:00 History Clopidogrel Bisulfate [Plavix] 75 mg PO DAILY 03/01/15 01/09/17 01/07/17 22:00 History Fenofibrate [Lofibra] 160 mg PO DAILY 03/01/15 01/09/17 01/07/17 22:00 History Pantoprazole [Protonix TAB] 40 mg PO DAILY 03/01/15 01/09/17 01/07/17 22:00 History Carisoprodol [Soma] 350 mg PO QID 05/07/16 01/09/17 01/08/17 09:00 History Ezetimibe [Zetia] 10 mg PO DAILY 05/07/16 01/09/17 01/08/17 09:00 History Lisinopril [Zestril TAB] 10 mg PO DAILY 05/07/16 01/09/17 01/08/17 09:00 History Gabapentin [Neurontin] 600 mg PO Q8H 01/08/17 01/09/17 01/08/17 15:00 History ISOSORBIDE MONOnitrate [Imdur ER] 30 mg PO DAILY 01/09/17 01/09/17 1 Day Ago History Active Meds: Active Medications Acetaminophen (Tylenol) 650 mg PO Q4H PRN PRN Reason: Pain MILD(1-3)/Fever >100.5/FRANCOIS Last Admin: 01/08/17 19:55 Dose: 650 mg Bisacodyl (Dulcolax) 10 mg UT QDAY PRN PRN Reason: Constipation unrelieved by MOM Carisoprodol (Soma) 350 mg PO QID [facility] Clopidogrel Bisulfate (Plavix) 75 mg PO DAILY [facility] Diltiazem HCl (Cardizem Cd) 180 mg PO QDAY [facility] Ezetimibe (Zetia) 10 mg PO DAILY [facility] Enoxaparin Sodium (Lovenox) 40 mg SUB-Q QDAY [facility] Famotidine (Pepcid) 20 mg IV BID [facility] Last Admin: 01/08/17 21:40 Dose: 20 mg Fenofibrate (Tricor) 145 mg PO DAILY [facility] Gabapentin (Neurontin) 600 mg PO TID [facility] Sodium Chloride (Nacl 0.45% 1000 Ml) 1,000 mls @ 42 mls/hr IV DIRECT [facility] Last Admin: 01/08/17 17:04 Dose: 42 mls/hr Influenza Virus Vaccine Quadrival (Fluarix Quad [id number](36 Mos+)) 0.5 ml IM .ONCE ONE Stop: 01/09/17 12:01 Levothyroxine Sodium (Synthroid) 75 mcg PO QAM@0600 [facility] Lisinopril (Zestril) 10 mg PO DAILY [facility] Magnesium Hydroxide (Milk Of Magnesia) 30 ml PO Q4H PRN PRN Reason: Constipation Montelukast Sodium (Singulair) 10 mg PO QPM [facility] Nitroglycerin (Nitro-Bid 2%) 1 inch TP BIDNTG DEJA PRN Reason: Protocol Ondansetron HCl (Zofran) 4 mg IV Q8H PRN PRN Reason: N/V unrelieved by Reglan Last Admin: 01/09/17 11:49 Dose: 4 mg Oxycodone HCl (Roxicodone) 2.5 mg PO BID PRN PRN Reason: Pain, Moderate (4-6) Last Admin: 01/09/17 08:35 Dose: 2.5 mg Oxycodone/Acetaminophen (Percocet 5/325) 1 tab PO BID PRN PRN Reason: Pain Last Admin: 01/09/17 08:34 Dose: 1 tab Pantoprazole Sodium (Protonix) 40 mg PO DAILY [facility] Zolpidem Tartrate (Ambien) 5 mg PO QHS PRN PRN Reason: Insomnia Review of Systems Constitutional: weight gain, no weight loss, no fever, no chills, no sweats Ears, nose, mouth and throat: no nasal congestion, no nasal discharge Cardiovascular: chest pain, orthopnea, edema, lightheadedness, shortness of breath, no palpitations, no syncope Respiratory: no cough, no excessive sputum, no hemoptysis Gastrointestinal: no abdominal pain, no nausea, no vomiting Genitourinary Male: no hematuria, no flank pain Rectal: no pain Musculoskeletal: no neck stiffness, no neck pain Integumentary: no rash, no pruritis Neurological: no paralysis, no weakness Psychiatric: anxiety Allergic/Immunologic: no allergic rhinitis, no wheezing Physical Examination Vital Signs Temp Pulse Resp BP Pulse Ox 98.4 F 83 22 114/69 97 01/08/17 16:56 01/08/17 16:56 01/08/17 16:56 01/08/17 16:56 01/08/17 16:56 General appearance: no acute distress HEENT: Positive: PERRL, EOMI Neck: Positive: neck supple, trachea midline Cardiac: Positive: Reg Rate and Rhythm Lungs: Positive: Normal Exam, clear to auscultation Neuro: Positive: Grossly Intact Abdomen: Positive: Unremarkable, Soft, Active Bowel Sounds Male genitourinary: Positive: deferred Skin: Negative: Rash Extremities: Present: normal, warm. Absent: edema Results 01/09/17 05:19 01/09/17 05:08 Cardiac Enzymes 01/08/17 01/08/17 01/08/17 Range/Units 16:07 16:15 21:40 AST 24 (5-40) units/L CK-MB (CK-2) 1.8 1.4 (0.0-4.0) ng/mL 01/09/17 Range/Units 05:08 AST (5-40) units/L CK-MB (CK-2) 1.4 (0.0-4.0) ng/mL Coagulation 01/08/17 01/09/17 Range/Units 16:16 05:19 PT 14.2 13.8 (12.2-14.9) Sec. INR 1.11 1.07 (0.87-1.13) APTT 27.5 (24.2-36.6) Sec. CBC 01/08/17 01/09/17 Range/Units 16:07 05:19 WBC 5.6 5.6 (4.5-11.0) K/mm3 RBC 5.01 4.78 (3.65-5.03) M/mm3 Hgb 14.3 13.7 (11.8-15.2) gm/dl Hct 43.8 41.8 (35.5-45.6) % Plt Count 243 219 (140-440) K/mm3 Lymph # 1.1 L (1.2-5.4) K/mm3 [place] # 0.6 (0.0-0.8) K/mm3 Eos # 0.1 (0.0-0.4) K/mm3 Baso # 0.0 (0.0-0.1) K/mm3 Comprehensive Metabolic Panel 01/08/17 01/09/17 Range/Units 16:15 05:08 Sodium 140 142 (137-145) mmol/L Potassium 4.1 3.7 (3.6-5.0) mmol/L Chloride 102.0 104.9 (98-107) mmol/L Carbon Dioxide 24 26 (22-30) mmol/L BUN 13 14 (9-20) mg/dL Creatinine 0.9 1.0 (0.8-1.5) mg/dL Glucose 114 H 113 H (75-100) mg/dL Calcium 9.3 8.6 (8.4-10.2) mg/dL AST 24 (5-40) units/L ALT 36 (7-56) units/L Alkaline Phosphatase 68 (35-129) units/L Total Protein 7.0 (6.3-8.2) g/dL Albumin 4.6 (3.9-5) g/dL - Imaging and Cardiology Echo: report reviewed (ECHO 05/06: EF 50-55%, mild MR) Cardiac cath: report reviewed (07/04: No angio sig epicardial disease, patent stent prox LCX, patent stent rt posterolateral branch, normal LV function, normal LVEDP) EKG interpretations - Telemetry EKG Rhythm: Sinus Rhythm Assessment and Plan 46-year-old male with past medical history of coronary disease status post drug- eluting stent to the mid right coronary artery drug eluting stent to the proximal left circumflex artery in April 2016, paroxysmal atrial fibrillation status post H of fibrillation ablation in December, history of hypoglycemia, transient ischemic attack, hypothyroidism, and gout who presents with chest pain /acute coronary syndrome. A 12-lead EKG does not reveal any stress-induced ischemia. Cardiac enzymes are negative. I am recommending a stress test to evaluate for any stress-induced ischemia.
[2017-01-09] MEDS ORDERED: Fluarix Quad 2017-2018(36 MOS+) IM ONE (12:00)
[2017-01-09] MEDS: NITRO-BID 2% TP SCH (13:28)
[2017-01-09] MEDS: MORPHINE IV PRN ×2 (13:29→20:04)
--- NOTE | 2017-01-09 13:37 | Progress Note ---
Assessment and Plan Assessment and plan: Chest pain. Cardiology consultation. Patient for cardiac catheterization. Continue IV heparin. Atrial fibrillation with RVR. Continue Cardizem per cardiology. Eliquis on hold. Continue Plavix. Hyperlipidemia. Continue home medications. Hypertension. Continue home antihypertensive medications. Hypothyroidism. hx TIA DVT prophylaxis. Patient currently on heparin. History Interval history: No new issues overnight. Hospitalist Physical - Constitutional Vitals: Temp Pulse Resp BP Pulse Ox 97.4 F L 98 H 19 143/90 97 01/09/17 05:08 01/09/17 11:47 01/09/17 05:08 01/09/17 11:47 01/09/17 05:08 General appearance: Present: no acute distress - EENT Eyes: Present: PERRL, EOM intact ENT: hearing intact, clear oral mucosa, dentition normal - Neck Neck: Present: supple, normal ROM - Respiratory Respiratory effort: normal Respiratory: bilateral: CTA - Cardiovascular Rhythm: regular Heart Sounds: Present: S1 & S2. Absent: gallop, rub - Extremities Extremities: no ischemia, No edema, Full ROM - Abdominal General gastrointestinal: soft, non-tender, non-distended, normal bowel sounds - Integumentary Integumentary: Present: clear, warm, dry - Neurologic Neurologic: CNII-XII intact, moves all extremities Results - Labs CBC & Chem 7: 01/09/17 05:19 01/09/17 05:08 Labs: Laboratory Last Values WBC 5.6 K/mm3 (4.5-11.0) 01/09/17 05:19 RBC 4.78 M/mm3 (3.65-5.03) 01/09/17 05:19 Hgb 13.7 gm/dl (11.8-15.2) 01/09/17 05:19 Hct 41.8 % (35.5-45.6) 01/09/17 05:19 MCV 88 fl (84-94) 01/09/17 05:19 MCH 29 pg (28-32) 01/09/17 05:19 MCHC 33 % (32-34) 01/09/17 05:19 RDW 14.1 % (13.2-15.2) 01/09/17 05:19 Plt Count 219 K/mm3 (140-440) 01/09/17 05:19 Lymph % (Auto) 18.8 % (13.4-35.0) 01/08/17 16:07 [place] % (Auto) 10.9 % (0.0-7.3) H 01/08/17 16:07 Eos % (Auto) 2.1 % (0.0-4.3) 01/08/17 16:07 Baso % (Auto) 0.5 % (0.0-1.8) 01/08/17 16:07 Lymph # 1.1 K/mm3 (1.2-5.4) L 01/08/17 16:07 [place] # 0.6 K/mm3 (0.0-0.8) 01/08/17 16:07 Eos # 0.1 K/mm3 (0.0-0.4) 01/08/17 16:07 Baso # 0.0 K/mm3 (0.0-0.1) 01/08/17 16:07 Seg Neutrophils % 67.7 % (40.0-70.0) 01/08/17 16:07 Seg Neutrophils # 3.8 K/mm3 (1.8-7.7) 01/08/17 16:07 PT 13.8 Sec. (12.2-14.9) 01/09/17 05:19 INR 1.07 (0.87-1.13) 01/09/17 05:19 APTT 27.5 Sec. (24.2-36.6) 01/08/17 16:16 Sodium 142 mmol/L (137-145) 01/09/17 05:08 Potassium 3.7 mmol/L (3.6-5.0) 01/09/17 05:08 Chloride 104.9 mmol/L (98-107) 01/09/17 05:08 Carbon Dioxide 26 mmol/L (22-30) 01/09/17 05:08 Anion Gap 15 mmol/L 01/09/17 05:08 BUN 14 mg/dL (9-20) 01/09/17 05:08 Creatinine 1.0 mg/dL (0.8-1.5) 01/09/17 05:08 Estimated GFR > 60 ml/min 01/09/17 05:08 BUN/Creatinine Ratio 14.00 % 01/09/17 05:08 Glucose 113 mg/dL (75-100) H 01/09/17 05:08 Hemoglobin A1c 5.4 % (4-6) 01/08/17 16:16 Calcium 8.6 mg/dL (8.4-10.2) 01/09/17 05:08 Total Bilirubin 0.30 mg/dL (0.1-1.2) 01/08/17 16:15 AST 24 units/L (5-40) 01/08/17 16:15 ALT 36 units/L (7-56) 01/08/17 16:15 Alkaline Phosphatase 68 units/L (35-129) 01/08/17 16:15 Total Creatine Kinase 115 units/L (55-170) 01/09/17 05:08 CK-MB (CK-2) 1.4 ng/mL (0.0-4.0) 01/09/17 05:08 CK-MB (CK-2) Rel Index 1.2 (0-4) 01/09/17 05:08 Troponin T < 0.010 ng/mL (0.00-0.029) 01/09/17 05:08 Total Protein 7.0 g/dL (6.3-8.2) 01/08/17 16:15 Albumin 4.6 g/dL (3.9-5) 01/08/17 16:15 Albumin/Globulin Ratio 1.9 % 01/08/17 16:15
[2017-01-09] MEDS: ZETIA PO SCH (17:00)
[2017-01-09] MEDS: PEPCID IV SCH ×2 (17:00→21:36)
[2017-01-09] MEDS: ZESTRIL PO SCH (17:00)
[2017-01-09] MEDS: PROTONIX PO SCH (17:40)
[2017-01-09] MEDS: CARDIZEM CD PO SCH (17:40)
[2017-01-09] MEDS: PLAVIX PO SCH (17:40)
[2017-01-09] MEDS: SINGULAIR PO SCH (17:40)
[2017-01-09] MEDS: TRICOR PO SCH (17:40)
[2017-01-10] MEDS: NACL 0.45% 1000 ML 1,000 ML IV SCH (00:15)
[2017-01-10] MEDS: PERCOCET 5/325 PO PRN ×3 (04:20→21:35)
[2017-01-10] MEDS: ROXICODONE PO PRN ×2 (04:20→21:34)
[2017-01-10 05:34] LABS: Basophils % (Auto) 0.5 % (0.0-1.8); Eosinophils % (Auto) 2.6 % (0.0-4.3); Hematocrit 42.7 % (35.5-45.6); Hemoglobin 14.4 gm/dl (11.8-15.2); Mean Corpuscular HGB Conc 34 % (32-34); Mean Corpuscular Hemoglobin 29 pg (28-32); Mean Corpuscular Volume 87 fl (84-94); Platelet Count 202 K/mm3 (140-440); Red Blood Count 4.93 M/mm3 (3.65-5.03); Red Cell Distribution Width 13.9 % (13.2-15.2); White Blood Count 5.4 K/mm3 (4.5-11.0)
[2017-01-10 05:35] LABS: Anion Gap 16 mmol/L; Blood Urea Nitrogen 12 mg/dL (9-20); Calcium 8.5 mg/dL (8.4-10.2); Carbon Dioxide 23 mmol/L (22-30); Chloride 104.9 mmol/L (98-107); Glucose 143 mg/dL (75-100); Sodium 140 mmol/L (137-145)
[2017-01-10] MEDS: SYNTHROID PO SCH ×2 (06:36→06:37)
[2017-01-10] MEDS: NITRO-BID 2% TP SCH ×2 (06:37→18:26)
[2017-01-10] MEDS: NEURONTIN PO SCH ×3 (08:55→21:33)
[2017-01-10] MEDS: ZOFRAN IV PRN (09:12)
[2017-01-10] MEDS: MORPHINE IV PRN ×2 (09:15→17:25)
[2017-01-10] MEDS: LOVENOX SUB-Q SCH (09:22)
[2017-01-10] MEDS: PEPCID IV SCH (09:24)
[2017-01-10] MEDS: CARDIZEM CD PO SCH (09:26)
[2017-01-10] MEDS: PLAVIX PO SCH (09:27)
[2017-01-10] MEDS: SOMA PO SCH ×4 (09:27→21:35)
[2017-01-10] MEDS: PROTONIX PO SCH (09:27)
[2017-01-10] MEDS: TRICOR PO SCH (09:28)
[2017-01-10] MEDS: ZETIA PO SCH (09:28)
[2017-01-10] MEDS: ZESTRIL PO SCH (09:28)
[2017-01-10] MEDS ORDERED: LASIX IV ONE (10:00)
[2017-01-10] MEDS ORDERED: K-DUR PO ONE (10:00)
--- NOTE | 2017-01-10 10:28 | Progress Note ---
Assessment and Plan Stress mpi, ce, ecg unremar[place]bale still w some sob - ? 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 Will try iv lasix x 1, with k f/u in am - Patient Problems (1) Chronic pain Current Visit: No Status: Chronic Qualifiers: Chronic pain type: other chronic pain Qualified Code(s): G89.29 - Other chronic pain (2) HLD (hyperlipidemia) Current Visit: Yes Status: Chronic Qualifiers: Hyperlipidemia type: mixed hyperlipidemia Qualified Code(s): E78.2 - Mixed hyperlipidemia (3) HTN (hypertension) Current Visit: Yes Status: Chronic Qualifiers: Hypertension type: essential hypertension Qualified Code(s): I10 - Essential (primary) hypertension (4) Hypothyroidism (acquired) Current Visit: Yes Status: Chronic (5) Anxiety Current Visit: No Status: Acute (6) Atrial fibrillation, rapid Current Visit: No Status: Acute (7) Dyspnea Current Visit: No Status: Acute Qualifiers: Dyspnea type: shortness of breath Qualified Code(s): R06.02 - Shortness of breath (8) Paroxysmal atrial fibrillation Current Visit: No Status: Chronic Subjective Date of service: 01/10/17 Interval history: this morning pt complains of leg swelling and sob no cp/palp/dizziness, ?orthopnea Objective Vital Signs Temp Pulse Resp BP BP Pulse Ox 01/10/17 09:15 18 01/10/17 04:20 18 01/10/17 04:10 97.2 F L 73 20 118/67 96 01/10/17 03:29 97.6 F 77 20 124/69 97 01/10/17 02:59 124/69 01/10/17 00:54 82 01/09/17 23:53 97.8 F 82 20 101/41 95 01/09/17 21:05 20 01/09/17 20:04 20 01/09/17 19:42 98.5 F 92 H 20 127/82 95 01/09/17 16:35 98.1 F 97 H 22 108/64 94 01/09/17 11:47 98 H 143/90 01/09/17 11:46 98 H 142/83 01/09/17 11:45 103 H 140/93 01/09/17 11:44 102 H 157/86 01/09/17 11:43 105 H 124/87 01/09/17 11:42 109 H 139/87 01/09/17 10:47 79 138/89 - Physical Examination HEENT: Positive: PERRL, EOMI Neck: Positive: neck supple, trachea midline Neuro: Positive: Grossly Intact Abdomen: Positive: Unremarkable, Soft, Active Bowel Sounds Skin: Negative: Rash Extremities: Present: normal, warm. Absent: edema - Labs and Meds CBC 01/10/17 Range/Units 04:34 WBC 5.4 (4.5-11.0) K/mm3 RBC 4.93 (3.65-5.03) M/mm3 Hgb 14.4 (11.8-15.2) gm/dl Hct 42.7 (35.5-45.6) % Plt Count 202 (140-440) K/mm3 Lymph # 1.1 L (1.2-5.4) K/mm3 [place] # 0.5 (0.0-0.8) K/mm3 Eos # 0.1 (0.0-0.4) K/mm3 Baso # 0.0 (0.0-0.1) K/mm3 Comprehensive Metabolic Panel 01/10/17 Range/Units 04:34 Sodium 140 (137-145) mmol/L Potassium 4.0 (3.6-5.0) mmol/L Chloride 104.9 (98-107) mmol/L Carbon Dioxide 23 (22-30) mmol/L BUN 12 (9-20) mg/dL Creatinine 1.0 (0.8-1.5) mg/dL Glucose 143 H (75-100) mg/dL Calcium 8.5 (8.4-10.2) mg/dL - Imaging and Cardiology EKG: report reviewed Echo: report reviewed (ECHO 05/06: EF 50-55%, mild MR) Cardiac cath: report reviewed (07/04: No angio sig epicardial disease, patent stent prox LCX, patent stent rt posterolateral branch, normal LV function, normal LVEDP)
--- NOTE | 2017-01-10 13:30 | Progress Note ---
Assessment and Plan Assessment and plan: Chest pain. Cardiology following. Patient for cardiac catheterization on Thursday. Continue IV heparin. Stress MPI, cardiac enzymes and EKG unremarkable. Lasix IV 1 per cardiology. Atrial fibrillation with RVR. Continue Cardizem per cardiology. Eliquis on hold. Continue Plavix. Hyperlipidemia. Continue home medications. Hypertension. Continue home antihypertensive medications. Hypothyroidism. hx TIA DVT prophylaxis. Patient currently on heparin. History Interval history: No new issues overnight. Hospitalist Physical - Constitutional Vitals: Temp Pulse Resp BP Pulse Ox 97.7 F 84 18 131/78 97 01/10/17 08:29 01/10/17 11:58 01/10/17 09:15 01/10/17 08:29 01/10/17 11:58 General appearance: Present: no acute distress - EENT Eyes: Present: PERRL, EOM intact ENT: hearing intact, clear oral mucosa, dentition normal - Neck Neck: Present: supple, normal ROM - Respiratory Respiratory effort: normal Respiratory: bilateral: CTA - Cardiovascular Rhythm: regular Heart Sounds: Present: S1 & S2. Absent: gallop, rub - Extremities Extremities: no ischemia, No edema, Full ROM - Abdominal General gastrointestinal: soft, non-tender, non-distended, normal bowel sounds - Integumentary Integumentary: Present: clear, warm, dry - Neurologic Neurologic: CNII-XII intact, moves all extremities Results - Labs CBC & Chem 7: 01/10/17 04:34 01/10/17 04:34 Labs: Laboratory Last Values WBC 5.4 K/mm3 (4.5-11.0) 01/10/17 04:34 RBC 4.93 M/mm3 (3.65-5.03) 01/10/17 04:34 Hgb 14.4 gm/dl (11.8-15.2) 01/10/17 04:34 Hct 42.7 % (35.5-45.6) 01/10/17 04:34 MCV 87 fl (84-94) 01/10/17 04:34 MCH 29 pg (28-32) 01/10/17 04:34 MCHC 34 % (32-34) 01/10/17 04:34 RDW 13.9 % (13.2-15.2) 01/10/17 04:34 Plt Count 202 K/mm3 (140-440) 01/10/17 04:34 Lymph % (Auto) 21.1 % (13.4-35.0) 01/10/17 04:34 [place] % (Auto) 9.0 % (0.0-7.3) H 01/10/17 04:34 Eos % (Auto) 2.6 % (0.0-4.3) 01/10/17 04:34 Baso % (Auto) 0.5 % (0.0-1.8) 01/10/17 04:34 Lymph # 1.1 K/mm3 (1.2-5.4) L 01/10/17 04:34 [place] # 0.5 K/mm3 (0.0-0.8) 01/10/17 04:34 Eos # 0.1 K/mm3 (0.0-0.4) 01/10/17 04:34 Baso # 0.0 K/mm3 (0.0-0.1) 01/10/17 04:34 Seg Neutrophils % 66.8 % (40.0-70.0) 01/10/17 04:34 Seg Neutrophils # 3.6 K/mm3 (1.8-7.7) 01/10/17 04:34 PT 13.8 Sec. (12.2-14.9) 01/09/17 05:19 INR 1.07 (0.87-1.13) 01/09/17 05:19 APTT 27.5 Sec. (24.2-36.6) 01/08/17 16:16 Sodium 140 mmol/L (137-145) 01/10/17 04:34 Potassium 4.0 mmol/L (3.6-5.0) 01/10/17 04:34 Chloride 104.9 mmol/L (98-107) 01/10/17 04:34 Carbon Dioxide 23 mmol/L (22-30) 01/10/17 04:34 Anion Gap 16 mmol/L 01/10/17 04:34 BUN 12 mg/dL (9-20) 01/10/17 04:34 Creatinine 1.0 mg/dL (0.8-1.5) 01/10/17 04:34 Estimated GFR > 60 ml/min 01/10/17 04:34 BUN/Creatinine Ratio 12.00 % 01/10/17 04:34 Glucose 143 mg/dL (75-100) H 01/10/17 04:34 Hemoglobin A1c 5.4 % (4-6) 01/08/17 16:16 Calcium 8.5 mg/dL (8.4-10.2) 01/10/17 04:34 Total Bilirubin 0.30 mg/dL (0.1-1.2) 01/08/17 16:15 AST 24 units/L (5-40) 01/08/17 16:15 ALT 36 units/L (7-56) 01/08/17 16:15 Alkaline Phosphatase 68 units/L (35-129) 01/08/17 16:15 Total Creatine Kinase 115 units/L (55-170) 01/09/17 05:08 CK-MB (CK-2) 1.4 ng/mL (0.0-4.0) 01/09/17 05:08 CK-MB (CK-2) Rel Index 1.2 (0-4) 01/09/17 05:08 Troponin T < 0.010 ng/mL (0.00-0.029) 01/09/17 05:08 Total Protein 7.0 g/dL (6.3-8.2) 01/08/17 16:15 Albumin 4.6 g/dL (3.9-5) 01/08/17 16:15 Albumin/Globulin Ratio 1.9 % 01/08/17 16:15
[2017-01-10] MEDS: SINGULAIR PO SCH (18:25)
[2017-01-10] MEDS: PEPCID PO SCH (21:35)
[2017-01-11] MEDS: ZOFRAN IV PRN ×2 (00:33→14:00)
[2017-01-11] MEDS: MORPHINE IV PRN ×3 (02:27→17:08)
[2017-01-11 05:21] LABS: Basophils % (Auto) 0.3 % (0.0-1.8); Eosinophils % (Auto) 2.6 % (0.0-4.3); Hematocrit 43.5 % (35.5-45.6); Hemoglobin 14.6 gm/dl (11.8-15.2); Mean Corpuscular HGB Conc 34 % (32-34); Mean Corpuscular Hemoglobin 29 pg (28-32); Mean Corpuscular Volume 87 fl (84-94); Platelet Count 217 K/mm3 (140-440); Red Blood Count 5.03 M/mm3 (3.65-5.03); Red Cell Distribution Width 13.8 % (13.2-15.2); White Blood Count 6.4 K/mm3 (4.5-11.0)
[2017-01-11 05:41] LABS: Anion Gap 17 mmol/L; BUN/Creatinine Ratio 11.81; Blood Urea Nitrogen 13 mg/dL (9-20); Calcium 8.7 mg/dL (8.4-10.2); Carbon Dioxide 25 mmol/L (22-30); Chloride 101.8 mmol/L (98-107); Glucose 99 mg/dL (75-100); Sodium 140 mmol/L (137-145)
[2017-01-11] MEDS: NEURONTIN PO SCH ×3 (08:30→21:22)
[2017-01-11] MEDS: PERCOCET 5/325 PO PRN (08:35)
[2017-01-11] MEDS: SYNTHROID PO SCH (08:39)
[2017-01-11] MEDS: PLAVIX PO SCH (09:31)
[2017-01-11] MEDS: LOVENOX SUB-Q SCH (09:32)
[2017-01-11] MEDS: PEPCID PO SCH ×2 (09:33→21:22)
[2017-01-11] MEDS: ZESTRIL PO SCH (09:37)
[2017-01-11] MEDS: ZETIA PO SCH (09:39)
[2017-01-11] MEDS: CARDIZEM CD PO SCH (09:39)
[2017-01-11] MEDS: PROTONIX PO SCH (09:39)
[2017-01-11] MEDS: TRICOR PO SCH (09:39)
[2017-01-11] MEDS: SOMA PO SCH ×4 (09:51→21:22)
--- NOTE | 2017-01-11 10:20 | Progress Note ---
Assessment and Plan Stress mpi, ce, ecg unremar[place]bale still w some sob - ? 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 occ cp - last 2 pcis were preceded by a nl w/u lasix iv x 1 today if cp recurs, consider repeat cath in am - Patient Problems (1) Chronic pain Current Visit: No Status: Chronic Qualifiers: Chronic pain type: other chronic pain Qualified Code(s): G89.29 - Other chronic pain (2) HLD (hyperlipidemia) Current Visit: Yes Status: Chronic Qualifiers: Hyperlipidemia type: mixed hyperlipidemia Qualified Code(s): E78.2 - Mixed hyperlipidemia (3) HTN (hypertension) Current Visit: Yes Status: Chronic Qualifiers: Hypertension type: essential hypertension Qualified Code(s): I10 - Essential (primary) hypertension (4) Hypothyroidism (acquired) Current Visit: Yes Status: Chronic (5) Anxiety Current Visit: No Status: Acute (6) Atrial fibrillation, rapid Current Visit: No Status: Acute (7) Dyspnea Current Visit: No Status: Acute Qualifiers: Dyspnea type: shortness of breath Qualified Code(s): R06.02 - Shortness of breath (8) Paroxysmal atrial fibrillation Current Visit: No Status: Chronic Subjective Date of service: 01/11/17 Interval history: still sob, occ cp Objective Vital Signs Temp Pulse Resp Resp BP Pulse Ox 01/11/17 07:59 97.7 F 83 20 122/85 97 01/11/17 05:52 97.5 F L 70 20 108/69 96 01/11/17 05:48 81 01/11/17 02:27 18 01/11/17 00:44 98.7 F 81 20 128/78 96 01/10/17 22:33 20 01/10/17 21:35 20 01/10/17 21:34 20 01/10/17 20:37 98.3 F 78 20 118/73 93 01/10/17 16:34 98.0 F 22 130/78 01/10/17 16:00 81 01/10/17 11:58 84 97 - Physical Examination HEENT: Positive: PERRL, EOMI Neck: Positive: neck supple, trachea midline Neuro: Positive: Grossly Intact Abdomen: Positive: Unremarkable, Soft, Active Bowel Sounds Skin: Negative: Rash Extremities: Present: normal, warm. Absent: edema - Labs and Meds CBC 01/11/17 Range/Units 04:41 WBC 6.4 (4.5-11.0) K/mm3 RBC 5.03 (3.65-5.03) M/mm3 Hgb 14.6 (11.8-15.2) gm/dl Hct 43.5 (35.5-45.6) % Plt Count 217 (140-440) K/mm3 Lymph # 1.1 L (1.2-5.4) K/mm3 [place] # 0.7 (0.0-0.8) K/mm3 Eos # 0.2 (0.0-0.4) K/mm3 Baso # 0.0 (0.0-0.1) K/mm3 Comprehensive Metabolic Panel 01/11/17 Range/Units 04:41 Sodium 140 (137-145) mmol/L Potassium 4.0 (3.6-5.0) mmol/L Chloride 101.8 (98-107) mmol/L Carbon Dioxide 25 (22-30) mmol/L BUN 13 (9-20) mg/dL Creatinine 1.1 (0.8-1.5) mg/dL Glucose 99 (75-100) mg/dL Calcium 8.7 (8.4-10.2) mg/dL - Imaging and Cardiology EKG: report reviewed Echo: report reviewed (ECHO 05/06: EF 50-55%, mild MR) Cardiac cath: report reviewed (07/04: No angio sig epicardial disease, patent stent prox LCX, patent stent rt posterolateral branch, normal LV function, normal LVEDP)
[2017-01-11] MEDS ORDERED: LASIX IV ONE (11:00)
[2017-01-11] MEDS ORDERED: K-DUR PO ONE (11:00)
--- NOTE | 2017-01-11 11:15 | Progress Note ---
Assessment and Plan Assessment and plan: Chest pain. Cardiology following. Patient for possible cardiac catheterization on Thursday per cardiology. Continue IV heparin. Stress MPI, cardiac enzymes and EKG unremarkable. Lasix IV 1 per cardiology. Atrial fibrillation with RVR. Continue Cardizem per cardiology. Eliquis on hold. Continue Plavix. Hyperlipidemia. Continue home medications. Hypertension. Continue home antihypertensive medications. Hypothyroidism. hx TIA DVT prophylaxis. Patient currently on heparin. History Interval history: No new issues overnight. Hospitalist Physical - Constitutional Vitals: Temp Pulse Resp BP Pulse Ox 97.7 F 83 20 122/85 97 01/11/17 07:59 01/11/17 07:59 01/11/17 07:59 01/11/17 07:59 01/11/17 07:59 General appearance: Present: no acute distress - EENT Eyes: Present: PERRL, EOM intact ENT: hearing intact, clear oral mucosa, dentition normal - Neck Neck: Present: supple, normal ROM - Respiratory Respiratory effort: normal Respiratory: bilateral: CTA - Cardiovascular Rhythm: regular Heart Sounds: Present: S1 & S2. Absent: gallop, rub - Extremities Extremities: no ischemia, No edema, Full ROM - Abdominal General gastrointestinal: soft, non-tender, non-distended, normal bowel sounds - Integumentary Integumentary: Present: clear, warm, dry - Neurologic Neurologic: CNII-XII intact, moves all extremities Results - Labs CBC & Chem 7: 01/11/17 04:41 01/11/17 04:41 Labs: Laboratory Last Values WBC 6.4 K/mm3 (4.5-11.0) 01/11/17 04:41 RBC 5.03 M/mm3 (3.65-5.03) 01/11/17 04:41 Hgb 14.6 gm/dl (11.8-15.2) 01/11/17 04:41 Hct 43.5 % (35.5-45.6) 01/11/17 04:41 MCV 87 fl (84-94) 01/11/17 04:41 MCH 29 pg (28-32) 01/11/17 04:41 MCHC 34 % (32-34) 01/11/17 04:41 RDW 13.8 % (13.2-15.2) 01/11/17 04:41 Plt Count 217 K/mm3 (140-440) 01/11/17 04:41 Lymph % (Auto) 17.9 % (13.4-35.0) 01/11/17 04:41 [place] % (Auto) 11.1 % (0.0-7.3) H 01/11/17 04:41 Eos % (Auto) 2.6 % (0.0-4.3) 01/11/17 04:41 Baso % (Auto) 0.3 % (0.0-1.8) 01/11/17 04:41 Lymph # 1.1 K/mm3 (1.2-5.4) L 01/11/17 04:41 [place] # 0.7 K/mm3 (0.0-0.8) 01/11/17 04:41 Eos # 0.2 K/mm3 (0.0-0.4) 01/11/17 04:41 Baso # 0.0 K/mm3 (0.0-0.1) 01/11/17 04:41 Seg Neutrophils % 68.1 % (40.0-70.0) 01/11/17 04:41 Seg Neutrophils # 4.3 K/mm3 (1.8-7.7) 01/11/17 04:41 PT 13.8 Sec. (12.2-14.9) 01/09/17 05:19 INR 1.07 (0.87-1.13) 01/09/17 05:19 APTT 27.5 Sec. (24.2-36.6) 01/08/17 16:16 Sodium 140 mmol/L (137-145) 01/11/17 04:41 Potassium 4.0 mmol/L (3.6-5.0) 01/11/17 04:41 Chloride 101.8 mmol/L (98-107) 01/11/17 04:41 Carbon Dioxide 25 mmol/L (22-30) 01/11/17 04:41 Anion Gap 17 mmol/L 01/11/17 04:41 BUN 13 mg/dL (9-20) 01/11/17 04:41 Creatinine 1.1 mg/dL (0.8-1.5) 01/11/17 04:41 Estimated GFR > 60 ml/min 01/11/17 04:41 BUN/Creatinine Ratio 11.81 % 01/11/17 04:41 Glucose 99 mg/dL (75-100) 01/11/17 04:41 Hemoglobin A1c 5.4 % (4-6) 01/08/17 16:16 Calcium 8.7 mg/dL (8.4-10.2) 01/11/17 04:41 Total Bilirubin 0.30 mg/dL (0.1-1.2) 01/08/17 16:15 AST 24 units/L (5-40) 01/08/17 16:15 ALT 36 units/L (7-56) 01/08/17 16:15 Alkaline Phosphatase 68 units/L (35-129) 01/08/17 16:15 Total Creatine Kinase 115 units/L (55-170) 01/09/17 05:08 CK-MB (CK-2) 1.4 ng/mL (0.0-4.0) 01/09/17 05:08 CK-MB (CK-2) Rel Index 1.2 (0-4) 01/09/17 05:08 Troponin T < 0.010 ng/mL (0.00-0.029) 01/09/17 05:08 Total Protein 7.0 g/dL (6.3-8.2) 01/08/17 16:15 Albumin 4.6 g/dL (3.9-5) 01/08/17 16:15 Albumin/Globulin Ratio 1.9 % 01/08/17 16:15
[2017-01-11] MEDS: ASPIRIN PO SCH (11:16)
[2017-01-11] MEDS: NITRO-BID 2% TP SCH ×3 (14:01→19:37)
[2017-01-11] MEDS: SINGULAIR PO SCH (17:12)
[2017-01-12] MEDS: MORPHINE IV PRN ×2 (02:45→17:09)
[2017-01-12] MEDS: SYNTHROID PO SCH (05:53)
[2017-01-12] MEDS: NITRO-BID 2% TP SCH ×2 (06:55→14:21)
--- NOTE | 2017-01-12 09:05 | Progress Note ---
Assessment and Plan In setting of recurrent chest pain, will proceed with LHC today. Indications, potential risks and benefits of LHC reviewed with pt and he is agreeable to proceed this AM. Consents obtained. Await findings. The patient has been seen in conjunction with Dr. Rajesh Garcia who agrees with the assessment and plan of care. - Patient Problems (1) Chronic pain Current Visit: No Status: Chronic Qualifiers: Chronic pain type: other chronic pain Qualified Code(s): G89.29 - Other chronic pain (2) HLD (hyperlipidemia) Current Visit: Yes Status: Chronic Qualifiers: Hyperlipidemia type: mixed hyperlipidemia Qualified Code(s): E78.2 - Mixed hyperlipidemia (3) HTN (hypertension) Current Visit: Yes Status: Chronic Qualifiers: Hypertension type: essential hypertension Qualified Code(s): I10 - Essential (primary) hypertension (4) Hypothyroidism (acquired) Current Visit: Yes Status: Chronic (5) Anxiety Current Visit: No Status: Acute (6) Atrial fibrillation, rapid Current Visit: No Status: Acute (7) Dyspnea Current Visit: No Status: Acute Qualifiers: Dyspnea type: shortness of breath Qualified Code(s): R06.02 - Shortness of breath (8) Paroxysmal atrial fibrillation Current Visit: No Status: Chronic Subjective Date of service: 01/12/17 Principal diagnosis: chest pain Interval history: Pt lying in bed, still c/o intermittent chest pain overnight. Has been NPO since MN. VSS. Objective Last Vital Signs Temp 98.2 F 01/12/17 08:39 Pulse 82 01/12/17 08:39 Resp 20 01/12/17 08:39 BP 126/82 01/12/17 08:39 Pulse Ox 95 01/12/17 08:39 - Physical Examination General: Appears Well HEENT: Positive: PERRL, EOMI Neck: Positive: neck supple, trachea midline Cardiac: Positive: Reg Rate and Rhythm, S1/S2 Lungs: Positive: clear to auscultation Neuro: Positive: Grossly Intact Abdomen: Positive: Unremarkable, Soft, Active Bowel Sounds Skin: Negative: Rash Extremities: Present: normal, warm. Absent: edema - Imaging and Cardiology EKG: report reviewed Echo: report reviewed (ECHO 05/06: EF 50-55%, mild MR) Cardiac cath: report reviewed (07/04: No angio sig epicardial disease, patent stent prox LCX, patent stent rt posterolateral branch, normal LV function, normal LVEDP)
[2017-01-12] MEDS ORDERED: NACL 0.9% 500 ML 500 ML IV SCH (10:00)
[2017-01-12] MEDS: SOMA PO SCH ×2 (10:00→14:00)
[2017-01-12] MEDS: PLAVIX PO SCH (11:16)
[2017-01-12] MEDS: ASPIRIN PO SCH (11:16)
[2017-01-12] MEDS ORDERED: CALAN ONE (11:29)
[2017-01-12] MEDS ORDERED: HEPARIN/NS 5000 UNIT/500ML(CATH LAB) 1,000 ML IR ONE (11:29)
[2017-01-12] MEDS ORDERED: HEPARIN 10,000 UNITS/10 ML ONE (11:29)
[2017-01-12] MEDS ORDERED: SUBLIMAZE ONE (11:30)
[2017-01-12] MEDS ORDERED: NITROGLYCERIN SYRINGE 3 ML ONE (11:30)
[2017-01-12] MEDS ORDERED: XYLOCAINE 2% INFILTRATI ONE ×2 (11:30→12:03)
[2017-01-12] MEDS ORDERED: VERSED ONE (11:30)
--- NOTE | 2017-01-12 12:07 | Progress Note ---
Assessment and Plan Assessment and plan: Chest pain. Cardiology following. Patient for cardiac catheterization today per cardiology. Continue IV heparin. Stress MPI, cardiac enzymes and EKG unremarkable. Echocardiogram revealed global left ventricular systolic function at lower limits of normal with an EF of 45%. Normal left ventricular diastolic filling observed. Chest CT showed no acute findings. Atrial fibrillation with RVR. Continue Cardizem per cardiology. Eliquis on hold. Continue Plavix. Hyperlipidemia. Continue home medications. Hypertension. Continue home antihypertensive medications. Hypothyroidism. hx TIA DVT prophylaxis. Patient currently on heparin. History Interval history: No new issues overnight. Hospitalist Physical - Constitutional Vitals: Temp Pulse Resp BP Pulse Ox 98.2 F 82 20 126/82 95 01/12/17 08:39 01/12/17 08:39 01/12/17 08:39 01/12/17 08:39 01/12/17 08:39 General appearance: Present: no acute distress - EENT Eyes: Present: PERRL, EOM intact ENT: hearing intact, clear oral mucosa, dentition normal - Neck Neck: Present: supple, normal ROM - Respiratory Respiratory effort: normal Respiratory: bilateral: CTA - Cardiovascular Rhythm: regular Heart Sounds: Present: S1 & S2. Absent: gallop, rub - Extremities Extremities: no ischemia, No edema, Full ROM - Abdominal General gastrointestinal: soft, non-tender, non-distended, normal bowel sounds - Integumentary Integumentary: Present: clear, warm, dry - Neurologic Neurologic: CNII-XII intact, moves all extremities Results - Labs CBC & Chem 7: 01/11/17 04:41 01/11/17 04:41 Labs: Laboratory Last Values WBC 6.4 K/mm3 (4.5-11.0) 01/11/17 04:41 RBC 5.03 M/mm3 (3.65-5.03) 01/11/17 04:41 Hgb 14.6 gm/dl (11.8-15.2) 01/11/17 04:41 Hct 43.5 % (35.5-45.6) 01/11/17 04:41 MCV 87 fl (84-94) 01/11/17 04:41 MCH 29 pg (28-32) 01/11/17 04:41 MCHC 34 % (32-34) 01/11/17 04:41 RDW 13.8 % (13.2-15.2) 01/11/17 04:41 Plt Count 217 K/mm3 (140-440) 01/11/17 04:41 Lymph % (Auto) 17.9 % (13.4-35.0) 01/11/17 04:41 [place] % (Auto) 11.1 % (0.0-7.3) H 01/11/17 04:41 Eos % (Auto) 2.6 % (0.0-4.3) 01/11/17 04:41 Baso % (Auto) 0.3 % (0.0-1.8) 01/11/17 04:41 Lymph # 1.1 K/mm3 (1.2-5.4) L 01/11/17 04:41 [place] # 0.7 K/mm3 (0.0-0.8) 01/11/17 04:41 Eos # 0.2 K/mm3 (0.0-0.4) 01/11/17 04:41 Baso # 0.0 K/mm3 (0.0-0.1) 01/11/17 04:41 Seg Neutrophils % 68.1 % (40.0-70.0) 01/11/17 04:41 Seg Neutrophils # 4.3 K/mm3 (1.8-7.7) 01/11/17 04:41 PT 13.1 Sec. (12.2-14.9) 01/12/17 10:26 INR 1.00 (0.87-1.13) 01/12/17 10:26 APTT 27.5 Sec. (24.2-36.6) 01/08/17 16:16 Sodium 140 mmol/L (137-145) 01/11/17 04:41 Potassium 4.0 mmol/L (3.6-5.0) 01/11/17 04:41 Chloride 101.8 mmol/L (98-107) 01/11/17 04:41 Carbon Dioxide 25 mmol/L (22-30) 01/11/17 04:41 Anion Gap 17 mmol/L 01/11/17 04:41 BUN 13 mg/dL (9-20) 01/11/17 04:41 Creatinine 1.1 mg/dL (0.8-1.5) 01/11/17 04:41 Estimated GFR > 60 ml/min 01/11/17 04:41 BUN/Creatinine Ratio 11.81 % 01/11/17 04:41 Glucose 99 mg/dL (75-100) 01/11/17 04:41 Hemoglobin A1c 5.4 % (4-6) 01/08/17 16:16 Calcium 8.7 mg/dL (8.4-10.2) 01/11/17 04:41 Total Bilirubin 0.30 mg/dL (0.1-1.2) 01/08/17 16:15 AST 24 units/L (5-40) 01/08/17 16:15 ALT 36 units/L (7-56) 01/08/17 16:15 Alkaline Phosphatase 68 units/L (35-129) 01/08/17 16:15 Total Creatine Kinase 115 units/L (55-170) 01/09/17 05:08 CK-MB (CK-2) 1.4 ng/mL (0.0-4.0) 01/09/17 05:08 CK-MB (CK-2) Rel Index 1.2 (0-4) 01/09/17 05:08 Troponin T < 0.010 ng/mL (0.00-0.029) 01/09/17 05:08 Total Protein 7.0 g/dL (6.3-8.2) 01/08/17 16:15 Albumin 4.6 g/dL (3.9-5) 01/08/17 16:15 Albumin/Globulin Ratio 1.9 % 01/08/17 16:15
--- NOTE | 2017-01-12 13:09 | Event Note ---
Date: 01/12/17 s/p LHC via right femoral artery which showed patent coronaries. Will initiate Ranexa. Will obtain V/Q scan to further investigate recurrent chest pain and SOB. Pending V/Q scan is negative for PE, pt may discharge home from cardiology standpoint. Pt may resume home Eliquis tomorrow AM. Follow up in our [place] office with Dr. Mcgrath on 01/26/2017 @ 11:15AM. Maddie ALEGRE NP / DR. Rajesh COLON
--- NOTE | 2017-01-12 14:02 | Discharge Summary ---
Providers - Providers Date of Admission: 01/08/17 15:19 Date of discharge: 01/12/17 Attending physician: ANDREW BOUDREAUX 01/08/17 14:52 Consult to Physician [CONS] Routine Consulting Provider: FRANCIS DOLAN Reason For Exam: Afib with rvr Place consult to:: Dr. Dolan Notified:: Jonathan KIRKhome care assistant physician: CHIP TESTER Hospitalization Reason for admission: cp Hospital course: 46-year-old gentleman with a past medical history of coronary artery disease status post stent to the right coronary artery and left circumflex artery stent in April 2016, paroxysmal atrial fibrillation status post pulmonary vein isolation in December 2014, hypoglycemia, transient ischemic attack, hypothyroidism and gout presented complaining of chest pain with associated shortness of breath. The patient reported that the chest pain was severe and radiating to his back. The patient had a CTA of the chest which did not reveal any pulmonary embolus or aortic dissection. EKG did not reveal any acute changes. Cardiac enzymes were negative. The patient was treated with Lovenox and pain control. The patient underwent stress MPI which was also found to be negative. The patient continued to complain of chest pain. Therefore, the patient underwent LHC which revealed patent coronaries. A VQ scan was obtained to rule out PE which was found to be negative. Etiology of chest pain is likely secondary to GERD. Patient is felt to have received maximal hospital benefit. Therefore, patient will be discharged home. Dedicated discharge time 31 minutes. Disposition: DC-01 TO HOME OR SELFCARE Time spent for discharge: 31 - Discharge Diagnoses (1) GERD (gastroesophageal reflux disease) Status: Acute Qualifiers: Esophagitis presence: E (2) HLD (hyperlipidemia) Status: Chronic Qualifiers: Hyperlipidemia type: mixed hyperlipidemia Qualified Code(s): E78.2 - Mixed hyperlipidemia (3) HTN (hypertension) Status: Chronic Qualifiers: Hypertension type: essential hypertension Qualified Code(s): I10 - Essential (primary) hypertension (4) Angina pectoris, unstable Status: Acute (5) Atrial fibrillation, rapid Status: Acute (6) Chest pain Status: Acute Qualifiers: Chest pain type: C Ischemic chest pain type: I Qualified Code(s): R07.89 - Other chest pain Comment: due to unstable angina (7) Paroxysmal atrial fibrillation Status: Chronic Core Measure Documentation - Palliative Care Palliative Care/ Comfort Measures: Not Applicable - Core Measures Any of the following diagnoses?: none Exam - Constitutional Vitals: Temp Pulse Resp BP Pulse Ox 98.2 F 82 20 126/82 95 01/12/17 08:39 01/12/17 08:39 01/12/17 08:39 01/12/17 08:39 01/12/17 08:39 General appearance: Present: no acute distress, well-nourished - EENT Eyes: Present: PERRL ENT: hearing intact, clear oral mucosa - Neck Neck: Present: supple, normal ROM - Respiratory Respiratory effort: normal Respiratory: bilateral: CTA - Cardiovascular Heart Sounds: Present: S1 & S2. Absent: rub, click - Extremities Extremities: pulses symmetrical, No edema Peripheral Pulses: within normal limits - Abdominal General gastrointestinal: Present: soft, non-tender, non-distended, normal bowel sounds Male genitourinary: Present: normal - Integumentary Integumentary: Present: clear, warm, dry - Musculoskeletal Musculoskeletal: gait normal, strength equal bilaterally - Psychiatric Psychiatric: appropriate mood/affect, intact judgment & insight - Neurologic Neurologic: CNII-XII intact, moves all extremities Plan Activity: no restrictions Weight Bearing Status: Full Weight Bearing Diet: regular Follow up with: PRIMARY CAREMD [Primary Care Provider] - 7 Days FRANCIS DOLAN MD [Staff Physician] - 7 Days [facility] Prescriptions: Apixaban [Eliquis] 5 mg PO BID #60 tablet Aspirin [Aspirin TAB] 325 mg PO QDAY #30 tablet Carisoprodol [Soma] 350 mg PO QID #30 tablet Clopidogrel Bisulfate [Plavix] 75 mg PO DAILY #30 tablet Diltiazem Cd [Cardizem CD] 180 mg PO QDAY #30 cap Ezetimibe [Zetia] 10 mg PO DAILY #30 tablet Fenofibrate [Lofibra] 160 mg PO DAILY #30 tablet Gabapentin [Neurontin] 600 mg PO Q8H #90 tablet ISOSORBIDE MONOnitrate [Imdur ER] 30 mg PO DAILY #30 tablet Levothyroxine [Synthroid] 75 mcg PO QAM #30 tablet Lisinopril [Zestril TAB] 10 mg PO DAILY #30 tablet Montelukast [Singulair] 10 mg PO QPM #30 tablet oxyCODONE /ACETAMINOPHEN [Percocet 5/325 mg] 1 tab PO BID PRN #20 tablet PRN Reason: Pain Pantoprazole [Protonix TAB] 40 mg PO DAILY #30 tablet Ranolazine ER [Ranexa ER] 500 mg PO BID #60 tablet Zolpidem [Ambien] 5 mg PO QHS PRN #30 tablet PRN Reason: Insomnia
[2017-01-12] MEDS: PEPCID PO SCH (14:04)
[2017-01-12] MEDS: LOVENOX SUB-Q SCH (14:04)
[2017-01-12] MEDS: ZETIA PO SCH (14:04)
[2017-01-12] MEDS: NEURONTIN PO SCH (14:05)
[2017-01-12] MEDS: PROTONIX PO SCH (14:05)
[2017-01-12] MEDS: TRICOR PO SCH (14:06)
[2017-01-12] MEDS: ZESTRIL PO SCH (14:07)
--- NOTE | 2017-01-12 15:03 | Cardiac Catherization Report ---
CARDIAC CATHETERIZATION REFERRING PHYSICIAN: Hospitalist service. INDICATION FOR PROCEDURE: The patient is a pleasant 46-year-old gentleman, who has had multivessel PCI, has recurrent chest pain, negative stress test. Continues to have active chest pain. His previous episodes where he required PCI, he also had a negative stress test. Given recurrent chest pain despite negative workup and active risk factors, the patient requests left heart catheterization. We will go ahead and proceed with this. Risks, benefits, and alternatives discussed. PROCEDURE IN DETAIL: The patient was brought to catheterization lab in a postabsorptive state, prepped and draped in sterile fashion. Joaquín's test in right hand was normal. There is a poor pulse in the right wrist and we were unable to gain access in the right radial artery despite even though he has been able to have several prior caths via the right radial. At this point, groin access was obtained. A 5-Sinhala modified Seldinger technique, JR4 catheter used in left main. No dampening or ventricularization. Cineangiography performed in all projections. JR4 catheter used to cross the aortic valve under fluoroscopic guidance. Left ventriculography performed in 30 GARZA and 30 PORTUGUESE projections via hand injections. Catheter flushed. Manual pullback performed with continuous pressure monitoring. Catheter used to engage the right coronary. No dampening or ventricularization. Cineangiography performed in all projections. Next, catheter removed from the body of wire, sheath removed. Manual pressure used to achieve hemostasis. DATA: Aortic pressure is 140/80, LV pressure is 140. LVEDP of 15 mmHg. Left ventriculography revealed normal systolic performance with estimated ejection fraction of 55% to 60%. No evidence of aortic stenosis. CORONARY ANATOMY: This is a strongly right dominant system. Right coronary is a large vessel, courses AV groove, distally bifurcates in the posterior and posterolateral branch, no discrete stenosis identified, patent right posterolateral stent. Left main without significant disease, bifurcates left anterior descending and left circumflex. LAD is a moderate sized vessel, courses anterior intergroove, wraps around the apex, no significant disease. Left circumflex is a moderate sized vessel, courses AV groove. There is a stent in the proximal left circumflex, which is patent. No obstructive disease identified. CONCLUSIONS: 1. No obstructive coronary disease identified and strongly right dominant system. 2. Patent proximal left circumflex stent. 3. Patent right posterolateral stent. 4. Normal left ventricular systolic performance. 5. No evidence of aortic stenosis. 6. Normal LVEDP. At this point, would add Ranexa, continue Imdur, check V/Q scan. Stable cardiac status, otherwise needs to adhere to aggressive primary and secondary risk factor modification. Results of procedure explained to the patient and family. All questions and concerns were addressed. [facility]# [id number] SBM/NTS
--- NOTE | 2017-01-12 15:18 | Nuclear Medicine Report ---
LUNG SCAN, VENTILATION AND PERFUSION: History: Chest pain, shortness of breath. Technique: 5mci of Tc99m MAA was infused for the perfusion images. 15mci XE 133 gas was inhaled for the ventilatory images. Correlation is made with a chest x-ray dated 01/12/17. Findings: Inhalation of Xenon gas demonstrates a normal distribution of the activity throughout both lungs. The wash out phases shows mild retention of the radiotracer consistent with air trapping. After injection of Technetium 99m macroaggregated albumin gamma camera imaging of the lungs in multiple projections demonstrates normal pulmonary contours with a homogeneous distribution of activity. No focal areas of perfusion deficiency are identified. IMPRESSION: Low probability for pulmonary embolus.
--- NOTE | 2017-01-12 15:18 | XRay Report ---
AP CHEST: HISTORY: Chest pain, shortness of breath AP view of the chest demonstrates a normal mediastinal and cardiac contour with clear lungs and normal bony and soft tissue structures. IMPRESSION: Unremarkable AP chest.
[2017-01-12 15:37] VITALS: BP 136/76
[2017-01-12] MEDS ORDERED: RANEXA ER PO SCH (22:00)
== END 2017-01-12 18:00 | disposition home or self-care (01) | DRG 287 ==
LOC: UNDOADMIN 14:14 → 4A 14:14
PROVIDERS: ADMIT Internal Medicine; ATTEND Hospitalist
PROC: 3E0234Z Introduction of Serum, Toxoid and Vaccine into Muscle, Percutaneous Approach (ICD-10-PCS; 2017-01-09)
PROC: 4A023N7 Measurement of Cardiac Sampling and Pressure, Left Heart, Percutaneous Approach (ICD-10-PCS; principal; 2017-01-12)
PROC: B2151ZZ Fluoroscopy of Left Heart using Low Osmolar Contrast (ICD-10-PCS; 2017-01-12)
DX: I25.110 Atherosclerotic heart disease of native coronary artery with unstable angina pectoris (principal); K21.9 Gastro-esophageal reflux disease without esophagitis; E03.9 Hypothyroidism, unspecified; M10.9 Gout, unspecified; E78.5 Hyperlipidemia, unspecified; I10 Essential (primary) hypertension; F41.9 Anxiety disorder, unspecified; E66.9 Obesity, unspecified; I48.0 Paroxysmal atrial fibrillation; Z95.5 Presence of coronary angioplasty implant and graft; Z86.73 Personal history of transient ischemic attack (TIA), and cerebral infarction without residual deficits; Z23 Encounter for immunization; Z68.34 Body mass index [BMI] 34.0-34.9, adult; Z82.49 Family history of ischemic heart disease and other diseases of the circulatory system
CPT/HCPCS: 36415; 71010; 71260; 78452; 78582; 80048; 80053; 82550; 82553; 83036; 84484; 85025; 85027; 85610; 85730; 90686; 93005; 93010; 93017; 93306; 93458; 96374; A9502; A9540; A9558; C1894; J1644; J1650; J1940; J2250; J2270; J2405; J2785; J3010; Q9967

== ENCOUNTER 2017-09-17 12:33 | Inpatient (IN) | payer OTHER ==
[2017-09-17] MEDS ORDERED: ASPIRIN PO ONE (12:49)
[2017-09-17 13:18] LABS: Basophils # (Auto) 0.1 K/mm3 (0.0-0.1); Basophils % (Auto) 0.7 % (0.0-1.8); Eosinophils # (Auto) 0.2 K/mm3 (0.0-0.4); Hemoglobin 15.7 gm/dl (11.8-15.2); Lymphocytes # (Auto) 0.9 K/mm3 (1.2-5.4); Lymphocytes % (Auto) 12.2 % (13.4-35.0); Mean Corpuscular HGB Conc 34 % (32-34); Mean Corpuscular Hemoglobin 29 pg (28-32); Mean Corpuscular Volume 86 fl (84-94); Monocytes # (Auto) 0.7 K/mm3 (0.0-0.8); Monocytes % (Auto) 8.9 % (0.0-7.3); Platelet Count 180 K/mm3 (140-440); Red Blood Count 5.33 M/mm3 (3.65-5.03); Red Cell Distribution Width 14.7 % (13.2-15.2)
[2017-09-17] MEDS ORDERED: SUBLIMAZE IV ONE (13:27)
[2017-09-17] MEDS ORDERED: ZOFRAN IV ONE (13:27)
[2017-09-17 13:28] LABS: INR 0.91 (0.87-1.13)
--- NOTE | 2017-09-17 13:28 | Emergency Department Report ---
ED Chest Pain HPI - General Chief Complaint: Chest Pain Stated Complaint: CHEST PAIN Time Seen by Provider: 09/17/17 13:22 Source: patient, RN notes reviewed, old records reviewed Mode of arrival: Ambulatory Limitations: No Limitations - History of Present Illness Initial Comments: This is a 46-year-old male who is unknown to this provider previously. His clinical quality rn is Dr. Mcgrath. He has a past medical history of ischemic cardiac disease, is currently taking eliquis, also has a history of hypertension , chronic pain, patient had a cardiac catheterization performed December 2016, which showed no obstructive coronary disease, strongly dominant right system, a patent proximal left circumflex stent Patient indicates that secondary to insurance issues he was off of his medications for quite a while. He reports that he's been on his medications for the past 2 weeks. He presents with right-sided and left-sided chest pain, shortness of breath. He denies DVT, pulmonary embolus risk factors. The patient states his pain feels just like the time when his RCA was blocked. He denies hematemesis or bright red blood per rectum. Emergent cardiology consult is obtained. The patient is interviewed by clinical quality rn, Dr. DENISE Garcia and Jennifer Oakley The cardiology team has recommended medical admission, heparinization, and aspirin. They indicated by us to perform catheterization in the morning. The Hospital physician, Dr. Salinas accepted the patient to the medical service. MD Complaint: chest pain -: Gradual Onset: during rest, during exertion, after eating Pain Location: substernal, left chest, right chest Pain Radiation: none Severity: severe Severity scale (0 -10): 10 Quality: tightness, aching, heaviness, sharp Consistency: intermittent Improves With: medication-other, rest Other Symptoms: cough - Related Data On Oral Contraceptives: No Home Medications Medication Instructions Recorded Confirmed Last Taken DULoxetine [Cymbalta] 30 mg PO QDAY 09/17/17 09/17/17 Unknown Lisinopril [Zestril] 20 mg PO QDAY 09/17/17 09/17/17 Unknown Previous Rx's Medication Instructions Recorded Last Taken Type Clopidogrel Bisulfate [Plavix] 75 mg PO DAILY #30 tablet 01/12/17 Unknown Rx Levothyroxine [Synthroid] 75 mcg PO QAM #30 tablet 01/12/17 Unknown Rx Montelukast [Singulair] 10 mg PO QPM #30 tablet 01/12/17 Unknown Rx Pantoprazole [Protonix TAB] 40 mg PO DAILY #30 tablet 01/12/17 Unknown Rx Zolpidem [Ambien] 5 mg PO QHS PRN #30 tablet 01/12/17 Unknown Rx Allergies Allergy/AdvReac Type Severity Reaction Status Date / Time moxifloxacin HCl Allergy Rash Verified 03/01/15 10:51 [From Avelox] peanut Allergy Swelling Verified 07/07/16 12:42 sulfamethoxazole Allergy Headache Verified 01/24/15 09:18 [From Bactrim] trimethoprim [From Bactrim] Allergy Headache Verified 03/01/15 10:51 Heart Score - HEART Score History: Highly suspicious EKG: Normal Age: 45-65 Risk factors: > 3 risk factors or hx of atherosclerotic disease Troponin: < normal limit HEART Score: 5 - Critical Actions Critical Actions: 4-6 pts:12-16.6% risk of adverse cardiac event. Should be admitted ED Review of Systems ROS: Stated complaint: CHEST PAIN Other details as noted in HPI Comment: All other systems reviewed and negative Constitutional: denies: fever Eyes: denies: vision change Respiratory: cough. denies: wheezing Cardiovascular: chest pain Gastrointestinal: denies: hematemesis, melena, hematochezia ED Past Medical Hx - Past Medical History Previous Medical History?: Yes Hx Hypertension: Yes Hx CVA: Yes (TIA x2 in November 2014) Hx Congestive Heart Failure: No Hx Diabetes: No Hx Liver Disease: Yes Hx Sickle Cell Disease: No Hx Asthma: No Hx COPD: No Hx HIV: No Additional medical history: AFIBHYPO THYROIDGOUTHIGH CHOL. cardiac stents x 2 - Surgical History Past Surgical History?: Yes Hx Coronary Stent: Yes (x 2) Additional Surgical History: cardiac albation - Social History Smoking Status: Former Smoker Substance Use Type: Alcohol, Prescribed - Medications Home Medications: Home Medications Medication Instructions Recorded Confirmed Last Taken Type Clopidogrel Bisulfate [Plavix] 75 mg PO DAILY #30 tablet 01/12/17 09/17/17 Unknown Rx Levothyroxine [Synthroid] 75 mcg PO QAM #30 tablet 01/12/17 09/17/17 Unknown Rx Montelukast [Singulair] 10 mg PO QPM #30 tablet 01/12/17 09/17/17 Unknown Rx Pantoprazole [Protonix TAB] 40 mg PO DAILY #30 tablet 01/12/17 09/17/17 Unknown Rx Zolpidem [Ambien] 5 mg PO QHS PRN #30 tablet 01/12/17 09/17/17 Unknown Rx DULoxetine [Cymbalta] 30 mg PO QDAY 09/17/17 09/17/17 Unknown History Lisinopril [Zestril] 20 mg PO QDAY 09/17/17 09/17/17 Unknown History ED Physical Exam - General Limitations: No Limitations General appearance: alert, in no apparent distress - Head Head exam: Present: atraumatic, normocephalic - Eye Eye exam: Present: normal appearance, EOMI. Absent: nystagmus - ENT ENT exam: Present: normal exam, normal orophraynx, mucous membranes moist, normal external ear exam - Neck Neck exam: Present: normal inspection, full ROM - Respiratory Respiratory exam: Present: normal lung sounds bilaterally. Absent: respiratory distress - Cardiovascular Cardiovascular Exam: Present: regular rate, normal rhythm, normal heart sounds. Absent: bradycardia, tachycardia, irregular rhythm, systolic murmur, diastolic murmur, rubs, gallop - GI/Abdominal GI/Abdominal exam: Present: soft, normal bowel sounds. Absent: distended, tenderness, guarding, rebound, rigid, pulsatile mass - Rectal Rectal exam: Present: deferred - Extremities Exam Extremities exam: Present: normal inspection, full ROM, normal capillary refill , other (there is no palpable cord. This negative Homans sign. Eczematous changes noted on bilateral anterior lower extremities). Absent: tenderness, pedal edema, joint swelling, calf tenderness - Back Exam Back exam: Present: normal inspection, full ROM. Absent: tenderness, CVA tenderness (R), paraspinal tenderness, vertebral tenderness - Neurological Exam Neurological exam: Present: alert, oriented X3, CN II-XII intact, other ( Extraocular movements intact. Tongue midline. No facial droop. Facial sensation intact to light touch in the V1, V2, V3 distribution bilaterally. 5 and 5 strength in 4 extremities.. Sensation is intact to light touch in 4 extremities.). Absent: motor sensory deficit - Psychiatric Psychiatric exam: Present: anxious - Skin Skin exam: Present: warm, dry, intact, normal color. Absent: rash ED Course Vital Signs 09/17/17 09/17/17 09/17/17 12:46 12:54 13:00 Temperature 97.8 F Pulse Rate 85 90 90 Respiratory 22 19 17 Rate Blood Pressure 127/85 128/88 O2 Sat by Pulse 98 97 Oximetry 09/17/17 09/17/17 09/17/17 13:15 13:30 13:41 Temperature Pulse Rate 88 86 101 H Respiratory 12 16 Rate Blood Pressure 133/89 114/81 133/84 O2 Sat by Pulse 98 97 Oximetry 09/17/17 09/17/17 13:45 13:47 Temperature Pulse Rate 100 H 103 H Respiratory 17 Rate Blood Pressure 133/84 O2 Sat by Pulse 96 Oximetry - Reevaluation(s) Reevaluation #1: 09/17/17 14:23 Patient reevaluated multiple times while in the department at this time. Hemodynamically stable, no diaphoresis, repeat EKG is pending. ROMA score - Roma Score Age > 65: (0) No Aspirin use within the Past 7 Days: (1) Yes 3 or more CAD Risk Factors: (1) Yes 2 or more Angina events in past 24 hrs: (1) Yes Known CAD with more than 50% Stenosis: (0) No Elevated Cardiac Markers: (0) No ST Deviation Greater than 0.5mm: (0) No ROMA Score: 3 ED Medical Decision Making - Lab Data Result diagrams: 09/17/17 13:05 09/17/17 13:05 Vital Signs 09/17/17 09/17/17 09/17/17 12:46 12:54 13:00 Temperature 97.8 F Pulse Rate 85 90 90 Respiratory 22 19 17 Rate Blood Pressure 127/85 128/88 O2 Sat by Pulse 98 97 Oximetry 09/17/17 09/17/17 09/17/17 13:15 13:30 13:41 Temperature Pulse Rate 88 86 101 H Respiratory 12 16 Rate Blood Pressure 133/89 114/81 133/84 O2 Sat by Pulse 98 97 Oximetry 09/17/17 09/17/17 13:45 13:47 Temperature Pulse Rate 100 H 103 H Respiratory 17 Rate Blood Pressure 133/84 O2 Sat by Pulse 96 Oximetry Lab Results 09/17/17 09/17/17 09/17/17 Range/Units 13:05 13:05 13:05 WBC 7.6 (4.5-11.0) K/mm3 RBC 5.33 H (3.65-5.03) M/mm3 Hgb 15.7 H (11.8-15.2) gm/dl Hct 46.0 H (35.5-45.6) % MCV 86 (84-94) fl MCH 29 (28-32) pg MCHC 34 (32-34) % RDW 14.7 (13.2-15.2) % Plt Count 180 (140-440) K/mm3 Lymph % (Auto) 12.2 L (13.4-35.0) % [place] % (Auto) 8.9 H (0.0-7.3) % Eos % (Auto) 3.0 (0.0-4.3) % Baso % (Auto) 0.7 (0.0-1.8) % Lymph # 0.9 L (1.2-5.4) K/mm3 [place] # 0.7 (0.0-0.8) K/mm3 Eos # 0.2 (0.0-0.4) K/mm3 Baso # 0.1 (0.0-0.1) K/mm3 Seg Neutrophils % 75.2 H (40.0-70.0) % Seg Neutrophils # 5.7 (1.8-7.7) K/mm3 PT 12.7 (12.2-14.9) Sec. INR 0.91 (0.87-1.13) APTT 28.3 (24.2-36.6) Sec. Sodium 134 L (137-145) mmol/L Potassium 3.7 (3.6-5.0) mmol/L Chloride 98.7 (98-107) mmol/L Carbon Dioxide 22 (22-30) mmol/L Anion Gap 17 mmol/L BUN 21 H (9-20) mg/dL Creatinine 0.9 (0.8-1.5) mg/dL Estimated GFR > 60 ml/min BUN/Creatinine Ratio 23 % Glucose 119 H (75-100) mg/dL Calcium 9.2 (8.4-10.2) mg/dL Troponin T < 0.010 (0.00-0.029) ng/mL - EKG Data -: EKG Interpreted by Me EKG shows normal: sinus rhythm, axis, intervals, QRS complexes, ST-T waves - Radiology Data Radiology results: image reviewed interpreted by me: X-ray of the chest, interpreted by me, no acute disease - Medical Decision Making Differential diagnosis, including but not limited to: Unstable angina, pericarditis, pneumonia, GERD, hiatal hernia, bronchitis Assessment and plan: 46-year-old male with clinical unstable angina. No pulmonary embolus or DVT risk factors, low risk by well's criteria, and currently on systemic anticoagulation. There are no contraindications to systemic anticoagulation at this time. Patient will require an aggressive ischemic cardiac risk stratification. Critical Care Time: Yes Critical care time in (mins) excluding proc time.: 35 Critical care attestation.: If time is entered above; I have spent that time in minutes in the direct care of this critically ill patient, excluding procedure time. ED Disposition Clinical Impression: CAD (coronary artery disease), Unstable angina Disposition: OP ADMIT IP TO THIS HOSP Is pt being admited?: Yes Does the pt Need Aspirin: Yes Condition: Good Instructions: Angina (ED) Referrals: PRIMARY CARE, [Primary Care Provider] - 3-5 Days
[2017-09-17 13:29] LABS: Partial Thromboplastin Time 28.3 Sec. (24.2-36.6)
[2017-09-17] MEDS: NITROSTAT SL PRN ×2 (13:41→13:47)
[2017-09-17] MEDS ORDERED: TYLENOL PO PRN (13:51)
[2017-09-17] MEDS ORDERED: SODIUM CHLORIDE FLUSH SYRINGE 10 ML IV PRN ×2 (13:51)
--- NOTE | 2017-09-17 13:51 | History and Physical Report ---
History of Present Illness Chief complaint: My chest hurts real bad doc History of present illness: 46 YO Male with CAD S/P ANU Placement, Paroxysmal Atrial Fib S/P Ablation, HTN, TIA, Hypothyroidism, Gout presents to ED for evaluation. Pt states that he has experienced pain in his chest for the past 2-3 days with acutely worsening symptoms over the past 2 hours. Pt states that his pain is 6-9/10, localized to the left side,worsened with exertion, not relieved with rest, nonradiating, constant. Pt denies fever, chills, palpitations, diaphoresis, shortness of breath, syncope, trauma, unilateral leg swelling, calf pain, productive cough or recent ill contacts. Pt acknowledges medication noncompliance. Pt seen and evaluated in ED and found to have Unstable Angina and initiated on Heparin drip. Pt admitted to telemetry. Cardiology consulted. Past History Past Medical History: atrial fib, CAD, hypertension, hypothyroidism Past Surgical History: Other (Cardiac stent placement) Social history: , lives with family. denies: smoking, alcohol abuse, prescription drug abuse Family history: hypertension Medications and Allergies Allergies Allergy/AdvReac Type Severity Reaction Status Date / Time moxifloxacin HCl Allergy Rash Verified 03/01/15 10:51 [From Avelox] peanut Allergy Swelling Verified 07/07/16 12:42 sulfamethoxazole Allergy Headache Verified 01/24/15 09:18 [From Bactrim] trimethoprim [From Bactrim] Allergy Headache Verified 03/01/15 10:51 Home Medications Medication Instructions Recorded Confirmed Last Taken Type Clopidogrel Bisulfate [Plavix] 75 mg PO DAILY #30 tablet 01/12/17 09/17/17 Unknown Rx Levothyroxine [Synthroid] 75 mcg PO QAM #30 tablet 01/12/17 09/17/17 Unknown Rx Montelukast [Singulair] 10 mg PO QPM #30 tablet 01/12/17 09/17/17 Unknown Rx Pantoprazole [Protonix TAB] 40 mg PO DAILY #30 tablet 01/12/17 09/17/17 Unknown Rx Zolpidem [Ambien] 5 mg PO QHS PRN #30 tablet 01/12/17 09/17/17 Unknown Rx Apixaban [Eliquis] 5 mg PO BID 09/17/17 09/17/17 09/17/17 10:00 History Carisoprodol [Soma] 350 mg PO QID 09/17/17 09/17/17 09/17/17 10:00 History DULoxetine [Cymbalta] 30 mg PO QDAY 09/17/17 09/17/17 Unknown History Diltiazem HCl [Diltiazem ER] 180 mg PO DAILY 09/17/17 09/17/17 09/17/17 10:00 History Gabapentin [Neurontin] 800 mg PO TID 09/17/17 09/17/17 09/17/17 10:00 History Lisinopril [Zestril] 20 mg PO QDAY 09/17/17 09/17/17 Unknown History Active Meds: Active Medications Nitroglycerin (Nitrostat) 0.4 mg SL .Q5MIN PRN PRN Reason: Chest Pain Review of Systems Constitutional: no weight loss, no weight gain, no fever, no chills Ears, nose, mouth and throat: no ear pain, no ear discharge, no tinnitis, no decreased hearing, no nose pain, no nasal congestion Cardiovascular: chest pain, no palpitations, no syncope, no lightheadedness, no shortness of breath, no leg edema Respiratory: no cough, no cough with sputum, no excessive sputum, no hemoptysis Gastrointestinal: no nausea, no vomiting, no diarrhea, no constipation, no change in bowel habits Genitourinary Male: no hematuria, no flank pain, no discharge, no nocturia Rectal: no pain, no incontinence, no bleeding Musculoskeletal: no neck stiffness, no neck pain, no shooting arm pain, no arm numbness/tingling, no low back pain, no shooting leg pain Integumentary: no rash, no pruritis, no redness, no sores Neurological: no transient paralysis, no paralysis, no weakness, no parathesias , no numbness, no tingling, no seizures Psychiatric: no anxiety, no memory loss, no change in sleep habits, no sleep disturbances, no insomnia, no hypersomnia, no change in appetite Endocrine: no cold intolerance, no heat intolerance, no polyphagia, no excessive thirst, no polydipsia, no polyuria, no nocturia Hematologic/Lymphatic: no easy bruising, no easy bleeding, no lymphadenopathy, no lymphedema Allergic/Immunologic: no urticaria, no allergic rhinitis, no wheezing, no persistent infections, no anaphylaxis Exam - Constitutional Vitals: Temp Pulse Resp BP Pulse Ox 97.8 F 90 17 128/88 97 09/17/17 12:46 09/17/17 13:00 09/17/17 13:00 09/17/17 13:00 09/17/17 13:00 General appearance: Present: mild distress - EENT Eyes: Present: PERRL ENT: hearing intact, clear oral mucosa - Neck Neck: Present: supple, normal ROM - Respiratory Respiratory effort: normal Respiratory: bilateral: CTA - Cardiovascular Heart Sounds: Present: S1 & S2. Absent: rub, click - Extremities Extremities: pulses symmetrical, No edema Peripheral Pulses: within normal limits - Abdominal General gastrointestinal: Present: soft, non-tender, non-distended, normal bowel sounds Male genitourinary: Present: normal - Integumentary Integumentary: Present: clear, warm, dry - Musculoskeletal Musculoskeletal: gait normal, strength equal bilaterally - Psychiatric Psychiatric: appropriate mood/affect, intact judgment & insight - Neurologic Neurologic: CNII-XII intact, moves all extremities Results - Labs CBC & Chem 7: 09/18/17 04:40 09/18/17 04:40 Labs: Abnormal lab results 09/17/17 Range/Units 13:05 RBC 5.33 H (3.65-5.03) M/mm3 Hgb 15.7 H (11.8-15.2) gm/dl Hct 46.0 H (35.5-45.6) % Lymph % (Auto) 12.2 L (13.4-35.0) % [place] % (Auto) 8.9 H (0.0-7.3) % Lymph # 0.9 L (1.2-5.4) K/mm3 Seg Neutrophils % 75.2 H (40.0-70.0) % Assessment and Plan - Patient Problems (1) Angina pectoris, unstable Current Visit: Yes Status: Acute Plan to address problem: Heparin drip, cardiology consulted, Pending cardiac cath in AM. pain control, Morphine, supplemental oxygen. (2) CAD (coronary artery disease) Current Visit: Yes Status: Chronic Qualifiers: Associated angina: with unstable angina Plan to address problem: low cholesterol diet, lipid panel, risk factor reduction, (3) HLD (hyperlipidemia) Current Visit: No Status: Chronic Qualifiers: Hyperlipidemia type: mixed hyperlipidemia Qualified Code(s): E78.2 - Mixed hyperlipidemia Plan to address problem: Statin therapy as indicated, lipid panel (4) HTN (hypertension) Current Visit: No Status: Chronic Qualifiers: Hypertension type: essential hypertension Qualified Code(s): I10 - Essential (primary) hypertension Plan to address problem: Monitor bp q shift, IV hydralazine prn, pain control (5) Hypothyroidism Current Visit: No Status: Chronic Qualifiers: Hypothyroidism type: acquired Qualified Code(s): E03.9 - Hypothyroidism, unspecified Plan to address problem: resume prehospital medication, supportive care. (6) ACS (acute coronary syndrome) Current Visit: Yes Status: Acute Plan to address problem: Serial cardiac enzymes, ekg, telemetry, morphine, supplemental oxygen, nitro, aspirin, further testing as per cardiology team. (7) DVT prophylaxis Current Visit: No Status: Acute Plan to address problem: scd to ble while in bed
[2017-09-17 13:57] LABS: BUN/Creatinine Ratio 23; Blood Urea Nitrogen 21 mg/dL (9-20); Calcium 9.2 mg/dL (8.4-10.2); Hemolysis Index 11
[2017-09-17] MEDS ORDERED: AMBIEN PO PRN (14:02)
--- NOTE | 2017-09-17 14:26 | Consultation ---
History of Present Illness Consult date: 09/17/17 Requesting physician: VALENTINE GAY Consult reason: chest pain History of present illness: The pt is a 46-year-old male with a past medical history of coronary artery disease status post drug-eluting stent to the mid right coronary artery in 2014 and drug-eluting stent to the proximal left circumflex artery in 04/2016, paroxysmal atrial fibrillation status post A. fib ablation in December 2014, HTN, TIA, hypothyroidism, and gout. He is followed in our office by Dr. Mcgrath. He presented with complaints of chest pain for the past 2.5 days with worsening of chest pain 2 hours prior to presentation. He describes his pain as a left-sided, nonexertional, nonradiating, constant pressure which fees similar to the pain he experienced prior to PCI of RCA. The pain is associated with some SOB. He denies any palpitations, n/v, diaphoresis, dizziness or syncope. The pt admits that recently, due to financial difficulties, he has not been taking all of his medications. He was not taking his Eliquis for approx 3 months and then resumed Eliquis 2 weeks ago. LHC done 12/2016 showed no obstructive coronary disease, right dominant system, patent proximal left circumflex stent, patent right posterior lateral stent, normal left ventricular systolic performance. Echo done 12/2016 showed EF 45-50%. Past History Past Medical History: atrial fib, CAD, hypertension, hypothyroidism, other (TIA ; paroxysmal atrial fibrillation status post A. fib ablation in December 2014) Past Surgical History: PTCA Social history: , lives with family Medications and Allergies Allergies Allergy/AdvReac Type Severity Reaction Status Date / Time moxifloxacin HCl Allergy Rash Verified 03/01/15 10:51 [From Avelox] peanut Allergy Swelling Verified 07/07/16 12:42 sulfamethoxazole Allergy Headache Verified 01/24/15 09:18 [From Bactrim] trimethoprim [From Bactrim] Allergy Headache Verified 03/01/15 10:51 Home Medications Medication Instructions Recorded Confirmed Last Taken Type Clopidogrel Bisulfate [Plavix] 75 mg PO DAILY #30 tablet 01/12/17 09/17/17 Unknown Rx Levothyroxine [Synthroid] 75 mcg PO QAM #30 tablet 01/12/17 09/17/17 Unknown Rx Montelukast [Singulair] 10 mg PO QPM #30 tablet 01/12/17 09/17/17 Unknown Rx Pantoprazole [Protonix TAB] 40 mg PO DAILY #30 tablet 01/12/17 09/17/17 Unknown Rx Zolpidem [Ambien] 5 mg PO QHS PRN #30 tablet 01/12/17 09/17/17 Unknown Rx DULoxetine [Cymbalta] 30 mg PO QDAY 09/17/17 09/17/17 Unknown History Lisinopril [Zestril] 20 mg PO QDAY 09/17/17 09/17/17 Unknown History Active Meds: Active Medications Acetaminophen (Tylenol) 650 mg PO Q4H PRN PRN Reason: Pain MILD(1-3)/Fever >100.5/FRANCOIS Clopidogrel Bisulfate (Plavix) 75 mg PO DAILY DEJA Duloxetine HCl (Cymbalta) 30 mg PO QDAY DEJA Heparin Sodium/Sodium Chloride (Heparin/ 0.45% Nacl-25,000 Unit/500 Ml) 25,000 unit in 500 mls @ 30.617 mls/hr IV TITRATE DEJA; Protocol Levothyroxine Sodium (Synthroid) 75 mcg PO QAM DEJA Lisinopril (Zestril) 20 mg PO QDAY DEJA Montelukast Sodium (Singulair) 10 mg PO QPM DEJA Nitroglycerin (Nitrostat) 0.4 mg SL .Q5MIN PRN PRN Reason: Chest Pain Last Admin: 09/17/17 13:47 Dose: 0.4 mg Ondansetron HCl (Zofran) 4 mg IV Q8H PRN PRN Reason: Nausea And Vomiting Pantoprazole Sodium (Protonix) 40 mg PO DAILY DEJA Sodium Chloride (Sodium Chloride Flush Syringe 10 Ml) 10 ml IV BID DEJA Sodium Chloride (Sodium Chloride Flush Syringe 10 Ml) 10 ml IV PRN PRN PRN Reason: LINE FLUSH Sodium Chloride (Sodium Chloride Flush Syringe 10 Ml) 10 ml IV PRN PRN PRN Reason: LINE FLUSH Zolpidem Tartrate (Ambien) 5 mg PO QHS PRN PRN Reason: Insomnia Review of Systems Constitutional: no weight loss, no weight gain, no fever, no chills, no sweats Ears, nose, mouth and throat: no ear pain, no nose pain, no sinus pressure, no sinus pain Cardiovascular: chest pain, shortness of breath, high blood pressure, no orthopnea, no palpitations, no rapid/irregular heart beat, no edema, no syncope , no lightheadedness Respiratory: shortness of breath, no cough, no congestion, no wheezing, no pain on inspiration Gastrointestinal: no abdominal pain, no nausea, no vomiting, no diarrhea, no constipation, no change in bowel habits Genitourinary Male: no dysuria, no hematuria, no flank pain, no discharge, no urinary frequency, no urinary hesitancy Musculoskeletal: no neck stiffness, no neck pain, no shooting arm pain, no arm numbness/tingling, no low back pain, no shooting leg pain, no leg numbness/ tingling, no redness of joints Integumentary: no wounds Neurological: no head injury, no paralysis, no weakness, no parathesias, no numbness, no tingling, no seizures, no syncope Psychiatric: no anxiety Endocrine: no cold intolerance, no heat intolerance Hematologic/Lymphatic: no easy bruising, no easy bleeding, no lymphadenopathy Allergic/Immunologic: no urticaria, no wheezing, no persistent infections Physical Examination Vital Signs Temp Pulse Resp BP Pulse Ox 97.8 F 85 22 127/85 98 09/17/17 12:46 09/17/17 12:46 09/17/17 12:46 09/17/17 12:46 09/17/17 12:46 General appearance: other (anxious) HEENT: Positive: PERRL, Normocephaly, Mucus Membranes Moist Neck: Positive: neck supple, trachea midline Cardiac: Positive: Reg Rate and Rhythm, S1/S2 Lungs: Positive: clear to auscultation Neuro: Positive: Grossly Intact Abdomen: Positive: Soft. Negative: Tender Skin: Negative: Wound Musculoskeletal: No Fluid Collection, No Pain, Normal Range of Motion Extremities: Absent: edema Results 09/17/17 14:48 09/17/17 13:05 Coagulation 09/17/17 Range/Units 13:05 PT 12.7 (12.2-14.9) Sec. INR 0.91 (0.87-1.13) APTT 28.3 (24.2-36.6) Sec. CBC 09/17/17 Range/Units 13:05 WBC 7.6 (4.5-11.0) K/mm3 RBC 5.33 H (3.65-5.03) M/mm3 Hgb 15.7 H (11.8-15.2) gm/dl Hct 46.0 H (35.5-45.6) % Plt Count 180 (140-440) K/mm3 Lymph # 0.9 L (1.2-5.4) K/mm3 [place] # 0.7 (0.0-0.8) K/mm3 Eos # 0.2 (0.0-0.4) K/mm3 Baso # 0.1 (0.0-0.1) K/mm3 Comprehensive Metabolic Panel 09/17/17 Range/Units 13:05 Sodium 134 L (137-145) mmol/L Potassium 3.7 (3.6-5.0) mmol/L Chloride 98.7 (98-107) mmol/L Carbon Dioxide 22 (22-30) mmol/L BUN 21 H (9-20) mg/dL Creatinine 0.9 (0.8-1.5) mg/dL Glucose 119 H (75-100) mg/dL Calcium 9.2 (8.4-10.2) mg/dL - Imaging and Cardiology Echo: report reviewed (12/2016 showed EF 45-50%) EKG: report reviewed, image reviewed EKG interpretations - Telemetry EKG Rhythm: Sinus Rhythm - EKG Sinus rhythms and dysrhythmias: sinus rhythm Assessment and Plan Assessment: Unstable angina - EKG with NAF; [place] negative for AMI x 1 set CAD - s/p PCI of distal RCA at [place] (01/2015) and PCI of ostial LCX (04/2016) H/o statin intolerance H/o paroxysmal atrial fibrillation s/p ablation 01/2015 Hypertension Hyperlipidemia Hypothyroidism Plan: Resume home cardiac regimen. Agree with ASA 325, heparin gtt, plavix. Plan for LHC in AM for definitive diagnosis. Indications, potential risks and benefits of LHC reviewed with pt and pt's at bedside and they are agreeable. NPO after MN. The patient has been seen in conjunction with Dr. DENISE Garcia who agrees with the assessment and plan of care.
--- NOTE | 2017-09-17 14:46 | XRay Report ---
AP CHEST: HISTORY: chest pain AP view of the chest demonstrates a normal mediastinal and cardiac contour with clear lungs and normal bony and soft tissue structures. IMPRESSION: Unremarkable AP chest. No change since 01/12/17.
[2017-09-17] MEDS ORDERED: HEPARIN/ 0.45% NACL-25,000 UNIT/500 ML 25,000 UNIT/500 ML BAG IV SCH (15:00)
[2017-09-17 15:13] LABS: Basophils % (Auto) 0.5 % (0.0-1.8); Eosinophils # (Auto) 0.2 K/mm3 (0.0-0.4); Eosinophils % (Auto) 3.3 % (0.0-4.3); Hematocrit 43.7 % (35.5-45.6); Hemoglobin 15.3 gm/dl (11.8-15.2); Lymphocytes % (Auto) 14.7 % (13.4-35.0); Mean Corpuscular HGB Conc 35 % (32-34); Mean Corpuscular Hemoglobin 30 pg (28-32); Mean Corpuscular Volume 85 fl (84-94); Monocytes # (Auto) 0.6 K/mm3 (0.0-0.8); Monocytes % (Auto) 8.9 % (0.0-7.3); Platelet Count 174 K/mm3 (140-440); Red Blood Count 5.13 M/mm3 (3.65-5.03); Red Cell Distribution Width 14.8 % (13.2-15.2)
[2017-09-17 15:24] LABS: INR 0.95 (0.87-1.13); Partial Thromboplastin Time 28.5 Sec. (24.2-36.6)
[2017-09-17 15:38] LABS: BUN/Creatinine Ratio 23; Blood Urea Nitrogen 21 mg/dL (9-20); Calcium 8.9 mg/dL (8.4-10.2); Hemolysis Index 16
[2017-09-17] MEDS ORDERED: NACL 0.9% 500 ML 500 ML IV SCH (16:00)
[2017-09-17] MEDS: SINGULAIR PO SCH (18:27)
[2017-09-17] MEDS: MORPHINE IV PRN (19:58)
[2017-09-17] MEDS: SODIUM CHLORIDE FLUSH SYRINGE 10 ML IV SCH (22:57)
[2017-09-17] MEDS: LOPRESSOR PO SCH (22:58)
[2017-09-18 05:47] LABS: Basophils % (Auto) 0.3 % (0.0-1.8); Eosinophils # (Auto) 0.3 K/mm3 (0.0-0.4); Eosinophils % (Auto) 4.9 % (0.0-4.3); Hematocrit 43.4 % (35.5-45.6); Hemoglobin 14.5 gm/dl (11.8-15.2); Lymphocytes % (Auto) 32.9 % (13.4-35.0); Mean Corpuscular HGB Conc 33 % (32-34); Mean Corpuscular Hemoglobin 29 pg (28-32); Mean Corpuscular Volume 87 fl (84-94); Monocytes # (Auto) 0.6 K/mm3 (0.0-0.8); Monocytes % (Auto) 9.3 % (0.0-7.3); Platelet Count 152 K/mm3 (140-440); Red Blood Count 4.99 M/mm3 (3.65-5.03); Red Cell Distribution Width 14.8 % (13.2-15.2)
[2017-09-18 05:56] LABS: BUN/Creatinine Ratio 30; Blood Urea Nitrogen 21 mg/dL (9-20); Calcium 8.5 mg/dL (8.4-10.2); Hemolysis Index 13; INR 0.93 (0.87-1.13)
[2017-09-18 05:58] LABS: Heparin anti-factor XA 0.53 U.I./ml (0.3-0.7)
[2017-09-18] MEDS: MORPHINE IV PRN ×4 (05:58→23:11)
[2017-09-18] MEDS: SYNTHROID PO SCH (05:59)
[2017-09-18] MEDS: ZOFRAN IV PRN (06:24)
[2017-09-18] MEDS ORDERED: XYLOCAINE 2% INFILTRATI ONE (08:20)
[2017-09-18] MEDS ORDERED: HEPARIN/NS 5000 UNIT/500ML(CATH LAB) 1,000 ML IR ONE (08:20)
[2017-09-18] MEDS ORDERED: SUBLIMAZE ONE (08:21)
[2017-09-18] MEDS ORDERED: VERSED ONE (08:21)
[2017-09-18] MEDS ORDERED: ASPIRIN ONE (08:30)
[2017-09-18] MEDS ORDERED: PLAVIX ONE (08:30)
[2017-09-18] MEDS: PLAVIX PO SCH ×2 (08:33→14:00)
[2017-09-18] MEDS: ASPIRIN PO SCH ×2 (08:33→21:14)
[2017-09-18] MEDS: HEPARIN 10,000 UNITS/10 ML ONE ×2 (09:41→21:12)
[2017-09-18] MEDS: CALAN ONE ×2 (09:41→21:12)
[2017-09-18] MEDS: NITROGLYCERIN SYRINGE 3 ML ONE ×2 (09:41→21:12)
[2017-09-18] MEDS ORDERED: SYNTHROID PO SCH (10:00)
[2017-09-18] MEDS: ZESTRIL PO SCH (14:00)
[2017-09-18] MEDS: LOPRESSOR PO SCH ×2 (14:00→22:38)
[2017-09-18] MEDS: CYMBALTA PO SCH (14:00)
[2017-09-18] MEDS: PROTONIX PO SCH (14:00)
--- NOTE | 2017-09-18 14:03 | Progress Note ---
Assessment and Plan Assessment: Chest pain - EKG with NAF; [place] negative for AMI CAD - s/p PCI of distal RCA at [place] (01/2015) and PCI of ostial LCX (04/2016) YAN H/o statin intolerance H/o paroxysmal atrial fibrillation s/p ablation 01/2015 - anticoagulated with Eliquis Hypertension Hyperlipidemia Hypothyroidism Plan: S/p LHC this AM which showed patent coronaries, patent stents. D/c heparin gtt. Cont home cardiac regimen. May resume home Eliquis. Pt still with complaints of chest pain and dyspnea on exertion and BLE pain. Will obtain DDimer and BLE duplex studies. CXR with NAF. Plan for lexiscan MPI stress test in AM to evaluate for functional ischemia. NPO after MN. Assessment and plan reviewed with pt and pt's at bedside. The patient has been seen in conjunction with Dr. Rodney who agrees with the assessment and plan of care. Subjective Date of service: 09/18/17 Principal diagnosis: cp Interval history: pt for [facility] today. no current complaints. states he had another bout of chest pain overnight. Objective Last Vital Signs Temp 97.8 F 09/18/17 11:57 Pulse 85 09/18/17 11:57 Resp 18 09/18/17 11:57 BP 130/92 09/18/17 11:57 Pulse Ox 97 09/18/17 11:57 - Physical Examination General: No Apparent Distress HEENT: Positive: PERRL, Normocephaly, Mucus Membranes Moist Neck: Positive: neck supple, trachea midline Cardiac: Positive: Reg Rate and Rhythm, S1/S2 Lungs: Positive: clear to auscultation Neuro: Positive: Grossly Intact Abdomen: Positive: Soft. Negative: Tender Skin: Negative: Wound Musculoskeletal: No Fluid Collection, No Pain, Normal Range of Motion Extremities: Absent: edema - Labs and Meds Coagulation 09/17/17 09/18/17 Range/Units 14:48 04:40 PT 13.2 12.9 (12.2-14.9) Sec. INR 0.95 0.93 (0.87-1.13) APTT 28.5 (24.2-36.6) Sec. CBC 09/17/17 09/18/17 Range/Units 14:48 04:40 WBC 7.1 6.0 (4.5-11.0) K/mm3 RBC 5.13 H 4.99 (3.65-5.03) M/mm3 Hgb 15.3 H 14.5 (11.8-15.2) gm/dl Hct 43.7 43.4 (35.5-45.6) % Plt Count 174 152 (140-440) K/mm3 Lymph # 1.0 L 2.0 (1.2-5.4) K/mm3 [place] # 0.6 0.6 (0.0-0.8) K/mm3 Eos # 0.2 0.3 (0.0-0.4) K/mm3 Baso # 0.0 0.0 (0.0-0.1) K/mm3 Comprehensive Metabolic Panel 09/17/17 09/18/17 Range/Units 14:48 04:40 Sodium 134 L 138 (137-145) mmol/L Potassium 3.6 3.9 (3.6-5.0) mmol/L Chloride 97.6 L 101.4 (98-107) mmol/L Carbon Dioxide 23 25 (22-30) mmol/L BUN 21 H 21 H (9-20) mg/dL Creatinine 0.9 0.7 L (0.8-1.5) mg/dL Glucose 127 H 90 (75-100) mg/dL Calcium 8.9 8.5 (8.4-10.2) mg/dL - Imaging and Cardiology EKG: report reviewed, image reviewed Echo: report reviewed (12/2016 showed EF 45-50%) - EKG Sinus rhythms and dysrhythmias: sinus rhythm
--- NOTE | 2017-09-18 15:08 | Cardiac Catherization Report ---
CARDIAC CATHETERIZATION The patient is a 46-year-old white gentleman with history of known coronary artery disease with intervention of the ostial left circumflex artery with a drug-eluting stent in the past and also intervention of the LV branch of the dominant RCA in the past, had last catheterization done in 06/2016, which revealed patent stents. He also has history of atrial fibrillation. Presently, he presented to the Emergency Room with chest pain. Cardiac enzymes are unremarkable. Because of persistent chest pain at rest, he was scheduled for cardiac catheterization for definitive diagnosis and treatment. The patient is aware of the procedure, potential complications, and the alternatives of therapy available. DESCRIPTION OF PROCEDURE: The patient was brought to the catheterization laboratory in a fasting condition. Initially, the patient was sedated with IV Versed and fentanyl. After preparing the patient with sterile drapes, right radial artery puncture was attempted. He is able to get good blood flow, but could not advance the wire in spite of attempting few times. Hence, right femoral artery access was obtained after giving local anesthesia under fluoroscopy using 5-[place] micropuncture needle. A 5-[place] sheath was introduced. Using multipurpose catheter, angiograms of the right coronary artery, left coronary artery, and left ventriculogram done in GARZA projection was performed. At this point, after obtaining the coronary angiograms, right femoral sheath was removed and good hemostasis was achieved with manual pressure. No untoward complications were noted. The patient was sedated with IV Versed and fentanyl, after evaluating for moderate sedation and he was felt appropriate for moderate sedation. HEMODYNAMICS: 1. Opening aortic pressure 141/92, left ventricular pressure 141/21, no gradient across the aortic valve. Estimated ejection fraction 55%. 2. Left ventriculogram done in GARZA projection showed normal sized left ventricle with normal contractility and end-diastolic and systolic volumes are normal. Mitral regurgitation could not be evaluated because of limited amount of dye injected. 3. Right coronary artery dominant vessel arises normally from right coronary cusp. This is angiographically smooth and normal with widely patent stent in the LV branches. There is a streaming of blood in the PDA whether it is artifact versus question of chronic dissection in the past is not clear. However, ROMA 3 flow was noted throughout the system suggesting no acute process at this point. 4. Left coronary artery arises normally from left coronary cusp. Left main is long and smooth and normal. LAD short vessel. LAD and its branch are angiographically smooth and normal. Circumflex artery relatively small caliber vessel shows patent stent in the proximal part, along with marginal branch, which is patent. FINAL IMPRESSION: Normal sized left ventricle with normal contractility. Patent stents in the LV branch of the RCA, which is a dominant vessel and also patent stent in proximal circ. There is streaming of the dye in the PDA significance of which is not clear. However, ROMA 3 flow was noted in all the vessels. Considering the above angiographic pictures along with ROMA 3 flow along with normal LV function, the patient will be continued on risk factor modification and medical therapy. It is to be noted even though right radial pulse is palpable could not advance the wire hence right femoral access was obtained. Similar findings were noted in the past. The patient was sedated with IV Versed starting at 9:35 a.m. and sedation ended at 9:57 a.m. No untoward complications were noted. Manual pressure was applied for hemostasis in the right groin. JOB# [id number] VLADIMIR/JAMES SALEH
[2017-09-18] MEDS: SODIUM CHLORIDE FLUSH SYRINGE 10 ML IV SCH ×2 (15:31→23:12)
--- NOTE | 2017-09-18 16:53 | Discharge Summary ---
Providers - Providers Date of Admission: 09/17/17 13:51 Date of discharge: 09/18/17 Attending physician: DENNIS GREY 09/17/17 13:26 Consult to Physician [CONS] Urgent Comment: Consulting Provider: GREY VIEIRA Physician Instructions: Reason For Exam: chest pain 09/18/17 14:10 Consult to Cardiac Rehabilitation [CONS] Routine Reason For Exam: Cardiac Rehab Evaluation Primary care physician: SENIOR STAFF ACCOUNTANT Hospitalization Condition: Good Hospital course: Assessment and Plan - Patient Problems (1) Angina pectoris, unstable Current Visit: Yes Status: Acute Plan to address problem: LHC and stress negative Possible Costocondritis (2) CAD (coronary artery disease) Current Visit: Yes Status: Chronic Qualifiers: Associated angina: with unstable angina Plan to address problem: low cholesterol diet, lipid panel, risk factor reduction, (3) HLD (hyperlipidemia) Current Visit: No Status: Chronic Qualifiers: Hyperlipidemia type: mixed hyperlipidemia Qualified Code(s): E78.2 - Mixed hyperlipidemia Plan to address problem: Statin therapy as indicated, lipid panel (4) HTN (hypertension) Current Visit: No Status: Chronic Qualifiers: Hypertension type: essential hypertension Qualified Code(s): I10 - Essential (primary) hypertension Plan to address problem: Monitor bp q shift, IV hydralazine prn, pain control (5) Hypothyroidism Current Visit: No Status: Chronic Qualifiers: Hypothyroidism type: acquired Qualified Code(s): E03.9 - Hypothyroidism, unspecified Plan to address problem: resume prehospital medication, supportive care. Disposition: TO HOME OR SELFCARE Core Measure Documentation - Palliative Care Palliative Care/ Comfort Measures: Not Applicable - Core Measures Any of the following diagnoses?: none Exam - Constitutional Vitals: Temp Pulse Resp BP Pulse Ox 97.8 F 85 18 130/92 97 09/18/17 11:57 09/18/17 11:57 09/18/17 11:57 09/18/17 11:57 09/18/17 11:57 General appearance: Present: no acute distress, well-nourished - EENT Eyes: Present: PERRL ENT: hearing intact, clear oral mucosa - Neck Neck: Present: supple, normal ROM - Respiratory Respiratory effort: normal Respiratory: bilateral: CTA - Cardiovascular Heart Sounds: Present: S1 & S2. Absent: rub, click - Extremities Extremities: pulses symmetrical, No edema Peripheral Pulses: within normal limits - Abdominal General gastrointestinal: Present: soft, non-tender, non-distended, normal bowel sounds Male genitourinary: Present: normal - Integumentary Integumentary: Present: clear, warm, dry - Musculoskeletal Musculoskeletal: gait normal, strength equal bilaterally - Psychiatric Psychiatric: appropriate mood/affect, intact judgment & insight - Neurologic Neurologic: CNII-XII intact, moves all extremities Plan Activity: no restrictions Diet: low salt Follow up with: PRIMARY CAREMD [Primary Care Provider] - 3-5 Days FRNACIS BRYANT MD [Staff Physician] - 7 Days
[2017-09-18] MEDS: SINGULAIR PO SCH (18:54)
[2017-09-18] MEDS: ELIQUIS PO SCH (23:11)
[2017-09-19] MEDS: SYNTHROID PO SCH (05:42)
[2017-09-19] MEDS: MORPHINE IV PRN ×2 (05:42→10:23)
[2017-09-19] MEDS: ZOFRAN IV PRN (06:11)
[2017-09-19 08:06] LABS: Hemoglobin 14.7 gm/dl (11.8-15.2)
[2017-09-19] MEDS ORDERED: LEXISCAN IV ONE ×2 (08:19→08:29)
[2017-09-19] MEDS ORDERED: BABY ASPIRIN PO SCH (10:00)
[2017-09-19] MEDS: PLAVIX PO SCH (10:18)
[2017-09-19] MEDS: ELIQUIS PO SCH (10:18)
[2017-09-19] MEDS: CYMBALTA PO SCH (10:18)
[2017-09-19] MEDS: ZESTRIL PO SCH (10:18)
[2017-09-19] MEDS: PROTONIX PO SCH (10:18)
[2017-09-19] MEDS: LOPRESSOR PO SCH (10:20)
[2017-09-19] MEDS: SODIUM CHLORIDE FLUSH SYRINGE 10 ML IV SCH (10:21)
--- NOTE | 2017-09-19 10:35 | Progress Note ---
Assessment and Plan chest pain mi r/o possible [facility] or gi htn chol p afib cad rec: cont home meds, anti inflammatory and discharge home Subjective Date of service: 09/19/17 Principal diagnosis: cp Interval history: pt chest pain better Objective Vital Signs Temp Pulse Resp BP BP Pulse Ox 09/19/17 09:12 92 H 151/90 09/19/17 09:11 86 151/92 09/19/17 09:10 99 H 140/89 09/19/17 09:09 100 H 150/84 09/19/17 09:08 95 H 139/87 09/19/17 08:52 85 138/84 09/19/17 05:35 98.2 F 79 18 132/86 95 09/18/17 23:49 98.3 F 83 18 129/93 96 09/18/17 22:06 96 09/18/17 22:00 18 09/18/17 19:49 98.1 F 83 18 127/71 95 09/18/17 18:01 97.8 F 82 19 135/86 94 09/18/17 11:57 97.8 F 85 18 130/92 97 - Physical Examination General: No Apparent Distress HEENT: Positive: PERRL, Normocephaly, Mucus Membranes Moist Neck: Positive: neck supple, trachea midline Cardiac: Positive: Reg Rate and Rhythm Lungs: Positive: clear to auscultation Neuro: Positive: Grossly Intact Abdomen: Positive: Soft. Negative: Tender Skin: Negative: Wound Musculoskeletal: No Fluid Collection, No Pain, Normal Range of Motion Extremities: Absent: edema - Labs and Meds CBC 09/19/17 Range/Units 05:58 Hgb 14.7 (11.8-15.2) gm/dl Hct 44.0 (35.5-45.6) % Plt Count 164 (140-440) K/mm3 - Imaging and Cardiology EKG: report reviewed, image reviewed Pharmacologic stress test: report reviewed (no signficant ischemia normal lv function) Echo: report reviewed (12/2016 showed EF 45-50%) Cardiac cath: report reviewed (C done 12/2016 showed no obstructive coronary disease, right dominant system, patent proximal left circumflex stent, patent right posterior lateral stent, normal left ventricular systolic performance. ) - EKG Sinus rhythms and dysrhythmias: sinus rhythm
[2017-09-19] MEDS ORDERED: CARDIZEM CD PO SCH (11:00)
--- NOTE | 2017-09-19 11:47 | Treadmill Report ---
NUCLEAR PERFUSION STUDY REASON FOR STUDY: Chest pain. IMAGING PROTOCOL: The patient received 10 mCi of Technetium 99m Tetrofosmin for resting image and 28 mCi of Technetium 99m Tetrofosmin for stress imaging. The imaging for the whole procedure was completed 30-90 minutes following the initial injection of Technetium 99m tetrofosmin. The SPECT imaging in the 180 degree arc was performed in the right anterior oblique projection. Computerized reconstruction of the images was performed for analysis. IMAGING RESULTS: Normal cavity size from stress to rest. Normal distribution of radionuclide in the anterior, inferior, septal, and apical regions. Gated SPECT, EF of 45-50%. Visualization of LV function. The patient infused Lexiscan with no EKG changes. SUMMARY: 1. Negative Lexiscan EKG. 2. Normal rest and stress myocardial perfusion scan. No significant stress ischemia. No wall motion abnormality. Gated SPECT, EF of 45-50%. JOB# [id number] JAMAAL/JAMES
[2017-09-19 17:59] VITALS: BP 126/86
[2017-09-19] MEDS: SINGULAIR PO SCH (18:33)
--- NOTE | 2017-09-19 18:38 | Progress Note ---
Assessment and Plan Assessment and Plan - Patient Problems (1) Angina pectoris, unstable Current Visit: Yes Status: Acute Plan to address problem: LHC negative Due for stress Due for stress(2) CAD (coronary artery disease) Current Visit: Yes Status: Chronic Qualifiers: Associated angina: with unstable angina Plan to address problem: low cholesterol diet, lipid panel, risk factor reduction, (3) HLD (hyperlipidemia) Current Visit: No Status: Chronic Qualifiers: Hyperlipidemia type: mixed hyperlipidemia Qualified Code(s): E78.2 - Mixed hyperlipidemia Plan to address problem: Statin therapy as indicated, lipid panel (4) HTN (hypertension) Current Visit: No Status: Chronic Qualifiers: Hypertension type: essential hypertension Qualified Code(s): I10 - Essential (primary) hypertension Plan to address problem: Monitor bp q shift, IV hydralazine prn, pain control (5) Hypothyroidism Current Visit: No Status: Chronic Qualifiers: Hypothyroidism type: acquired Qualified Code(s): E03.9 - Hypothyroidism, unspecified Plan to address problem: resume prehospital medication, supportive care. (6) ACS (acute coronary syndrome) Current Visit: Yes Status: Acute Plan to address problem: Serial cardiac enzymes, ekg, telemetry, morphine, supplemental oxygen, nitro, aspirin, further testing as per cardiology team. (7) DVT prophylaxis Current Visit: No Status: Acute Plan to address problem: scd to ble while in bed Subjective Date of service: 09/19/17 Principal diagnosis: cp Interval history: Chest pain S/p [facility] - doing well Objective - Constitutional Vitals: Vital Signs - 12hr 09/19/17 09/19/17 09/19/17 08:52 09:08 09:09 Temperature Pulse Rate 85 95 H 100 H Pulse Rate [ Right Radial] Respiratory Rate Blood Pressure 138/84 139/87 150/84 O2 Sat by Pulse Oximetry 09/19/17 09/19/17 09/19/17 09:10 09:11 09:12 Temperature Pulse Rate 99 H 86 92 H Pulse Rate [ Right Radial] Respiratory Rate Blood Pressure 140/89 151/92 151/90 O2 Sat by Pulse Oximetry 09/19/17 09/19/17 09/19/17 10:00 11:53 16:46 Temperature 97.4 F L 97.9 F Pulse Rate 76 77 87 Pulse Rate [ 76 Right Radial] Respiratory 18 18 20 Rate Blood Pressure 125/80 126/86 O2 Sat by Pulse 95 96 96 Oximetry General appearance: Present: no acute distress, well-nourished - EENT Eyes: PERRL, EOM intact ENT: hearing intact, clear oral mucosa Ears: bilateral: normal - Neck Neck: supple, normal ROM - Respiratory Respiratory effort: normal Respiratory: bilateral: CTA - Breasts Breasts: normal - Cardiovascular Rhythm: regular Heart Sounds: Present: S1 & S2. Absent: gallop, rub Extremities: pulses intact, No edema, normal color, Full ROM - Gastrointestinal General gastrointestinal: Present: soft, non-tender, non-distended, normal bowel sounds - Genitourinary Male genitourinary: normal - Integumentary Integumentary: clear, warm, dry - Musculoskeletal Musculoskeletal: 1, strength equal bilaterally - Neurologic Neurologic: moves all extremities - Psychiatric Psychiatric: memory intact, appropriate mood/affect, intact judgment & insight - Labs CBC & Chem 7: 09/19/17 05:58 09/18/17 04:40
== END 2017-09-19 20:07 | disposition home or self-care (01) | DRG 287 ==
LOC: ED 12:33 → 4A 13:51
PROVIDERS: ADMIT Internal Medicine; ATTEND Internal Medicine
PROC: 4A023N7 Measurement of Cardiac Sampling and Pressure, Left Heart, Percutaneous Approach (ICD-10-PCS; principal; 2017-09-18)
PROC: B2111ZZ Fluoroscopy of Multiple Coronary Arteries using Low Osmolar Contrast (ICD-10-PCS; 2017-09-18)
PROC: B2151ZZ Fluoroscopy of Left Heart using Low Osmolar Contrast (ICD-10-PCS; 2017-09-18)
DX: I25.110 Atherosclerotic heart disease of native coronary artery with unstable angina pectoris (principal); I24.9 Acute ischemic heart disease, unspecified; E78.5 Hyperlipidemia, unspecified; I10 Essential (primary) hypertension; I48.91 Unspecified atrial fibrillation; M10.9 Gout, unspecified; E03.9 Hypothyroidism, unspecified; G89.29 Other chronic pain; Z79.899 Other long term (current) drug therapy; Z79.82 Long term (current) use of aspirin; Z86.73 Personal history of transient ischemic attack (TIA), and cerebral infarction without residual deficits; Z95.5 Presence of coronary angioplasty implant and graft; Z82.49 Family history of ischemic heart disease and other diseases of the circulatory system; Z88.2 Allergy status to sulfonamides; Z91.010 Allergy to peanuts
CPT/HCPCS: 36415; 71045; 78452; 80048; 82962; 84484; 85014; 85018; 85025; 85049; 85379; 85520; 85610; 85730; 93005; 93010; 93017; 93458; 93970; 94760; 96365; 96372; A9502; C1894; J1644; J2250; J2270; J2405; J2785; J3010; J7040; Q9967

== ENCOUNTER 2017-12-31 12:04 | Inpatient (IN) | payer OTHER ==
[2017-12-31] MEDS ORDERED: ASPIRIN PO ONE (12:55)
[2017-12-31 13:17] LABS: Basophils % (Auto) 0.7 % (0.0-1.8); Eosinophils # (Auto) 0.2 K/mm3 (0.0-0.4); Eosinophils % (Auto) 3.5 % (0.0-4.3); Hematocrit 44.3 % (35.5-45.6); Hemoglobin 15.1 gm/dl (11.8-15.2); Lymphocytes # (Auto) 1.2 K/mm3 (1.2-5.4); Lymphocytes % (Auto) 19.1 % (13.4-35.0); Mean Corpuscular HGB Conc 34 % (32-34); Mean Corpuscular Hemoglobin 29 pg (28-32); Mean Corpuscular Volume 85 fl (84-94); Monocytes # (Auto) 0.6 K/mm3 (0.0-0.8); Monocytes % (Auto) 8.6 % (0.0-7.3); Platelet Count 242 K/mm3 (140-440); Red Cell Distribution Width 13.7 % (13.2-15.2)
[2017-12-31 13:32] LABS: BUN/Creatinine Ratio 21; Blood Urea Nitrogen 17 mg/dL (9-20); Calcium 9.6 mg/dL (8.4-10.2); Hemolysis Index 24
--- NOTE | 2017-12-31 17:53 | Emergency Department Report ---
<DOC SAWYER - Last Filed: 12/31/17 20:59> ED Chest Pain HPI - General Chief Complaint: Chest Pain Stated Complaint: CHEST PAINS/SHOULDER PAIN Time Seen by Provider: 12/31/17 17:49 - Related Data Home Medications Medication Instructions Recorded Confirmed Last Taken Carisoprodol [Soma] 350 mg PO QID 09/17/17 12/31/17 09/17/17 10:00 Gabapentin [Neurontin] 800 mg PO TID 09/17/17 12/31/17 09/17/17 10:00 Cetirizine HCl [All Day Allergy] 10 mg PO DAILY 12/31/17 12/31/17 Unknown DULoxetine [Cymbalta] 30 mg PO DAILY 12/31/17 12/31/17 Unknown Levothyroxine [Synthroid] 75 mcg PO DAILY 12/31/17 12/31/17 Unknown Montelukast [Singulair] 10 mg PO DAILY 12/31/17 12/31/17 Unknown Naproxen Sodium [Naproxen Sodium 375 mg PO BID 12/31/17 12/31/17 Unknown Cr] Testosterone Cypionate 200 mg IM QID 12/31/17 12/31/17 Unknown [Depo-Testosterone] dilTIAZem CD [Cardizem CD] 180 mg PO DAILY 12/31/17 12/31/17 Unknown Previous Rx's Medication Instructions Recorded Last Taken Type Clopidogrel [Plavix] 75 mg PO DAILY #30 tablet 09/19/17 Unknown Rx Pantoprazole [Protonix TAB] 40 mg PO DAILY #30 tablet 09/19/17 Unknown Rx Allergies Allergy/AdvReac Type Severity Reaction Status Date / Time moxifloxacin HCl Allergy Rash Verified 03/01/15 10:51 [From Avelox] peanut Allergy Swelling Verified 07/07/16 12:42 sulfamethoxazole Allergy Headache Verified 01/24/15 09:18 [From Bactrim] trimethoprim [From Bactrim] Allergy Headache Verified 03/01/15 10:51 ED Review of Systems ROS: Stated complaint: CHEST PAINS/SHOULDER PAIN Other details as noted in HPI ED Past Medical Hx - Medications Home Medications: Home Medications Medication Instructions Recorded Confirmed Last Taken Type Carisoprodol [Soma] 350 mg PO QID 09/17/17 12/31/17 09/17/17 10:00 History Gabapentin [Neurontin] 800 mg PO TID 09/17/17 12/31/17 09/17/17 10:00 History Clopidogrel [Plavix] 75 mg PO DAILY #30 tablet 09/19/17 12/31/17 Unknown Rx Pantoprazole [Protonix TAB] 40 mg PO DAILY #30 tablet 09/19/17 12/31/17 Unknown Rx Cetirizine HCl [All Day Allergy] 10 mg PO DAILY 12/31/17 12/31/17 Unknown History DULoxetine [Cymbalta] 30 mg PO DAILY 12/31/17 12/31/17 Unknown History Levothyroxine [Synthroid] 75 mcg PO DAILY 12/31/17 12/31/17 Unknown History Montelukast [Singulair] 10 mg PO DAILY 12/31/17 12/31/17 Unknown History Naproxen Sodium [Naproxen Sodium 375 mg PO BID 12/31/17 12/31/17 Unknown History Cr] Testosterone Cypionate 200 mg IM QID 12/31/17 12/31/17 Unknown History [Depo-Testosterone] dilTIAZem CD [Cardizem CD] 180 mg PO DAILY 12/31/17 12/31/17 Unknown History ED Course Vital Signs 12/31/17 12/31/17 12/31/17 12:49 17:13 17:15 Temperature 98.7 F Pulse Rate 78 74 Respiratory 20 12 Rate Blood Pressure 142/94 144/93 O2 Sat by Pulse 97 100 100 Oximetry 12/31/17 12/31/17 12/31/17 17:30 17:45 18:00 Temperature Pulse Rate 59 L 62 62 Respiratory 13 17 14 Rate Blood Pressure 136/89 137/89 135/83 O2 Sat by Pulse 98 99 96 Oximetry 12/31/17 12/31/17 12/31/17 18:15 18:31 18:45 Temperature Pulse Rate 68 65 63 Respiratory 19 12 19 Rate Blood Pressure 135/83 122/92 140/92 O2 Sat by Pulse 97 97 98 Oximetry 12/31/17 12/31/17 12/31/17 19:00 19:15 19:30 Temperature Pulse Rate 66 67 71 Respiratory 12 16 15 Rate Blood Pressure 141/93 140/93 136/95 O2 Sat by Pulse 98 97 98 Oximetry 09/13/18 09/13/18 09/13/18 19:45 20:17 20:30 Temperature Pulse Rate 64 91 H 71 Respiratory 16 19 17 Rate Blood Pressure 139/92 139/92 132/91 O2 Sat by Pulse 97 98 97 Oximetry 12/31/17 12/31/17 12/31/17 20:45 21:00 21:15 Temperature Pulse Rate 66 67 76 Respiratory 11 L 14 12 Rate Blood Pressure 137/92 149/97 149/110 O2 Sat by Pulse Oximetry 12/31/17 12/31/17 12/31/17 21:30 21:45 22:00 Temperature Pulse Rate 70 82 74 Respiratory 16 15 16 Rate Blood Pressure 159/109 139/96 147/100 O2 Sat by Pulse 99 98 Oximetry 12/31/17 12/31/17 12/31/17 22:15 22:30 22:45 Temperature Pulse Rate 65 97 H 66 Respiratory 12 13 12 Rate Blood Pressure 147/94 148/98 144/90 O2 Sat by Pulse 97 98 98 Oximetry 12/31/17 12/31/17 12/31/17 23:00 23:15 23:27 Temperature Pulse Rate 67 78 88 Respiratory 13 15 11 L Rate Blood Pressure 146/96 145/98 144/90 O2 Sat by Pulse 99 97 98 Oximetry ED Medical Decision Making - Lab Data Result diagrams: 12/31/17 13:09 12/31/17 13:09 Lab Results 12/31/17 12/31/17 12/31/17 Range/Units 13:09 13:09 14:59 WBC 6.5 (4.5-11.0) K/mm3 RBC 5.20 H (3.65-5.03) M/mm3 Hgb 15.1 (11.8-15.2) gm/dl Hct 44.3 (35.5-45.6) % MCV 85 (84-94) fl MCH 29 (28-32) pg MCHC 34 (32-34) % RDW 13.7 (13.2-15.2) % Plt Count 242 (140-440) K/mm3 Lymph % (Auto) 19.1 (13.4-35.0) % [place] % (Auto) 8.6 H (0.0-7.3) % Eos % (Auto) 3.5 (0.0-4.3) % Baso % (Auto) 0.7 (0.0-1.8) % Lymph # 1.2 (1.2-5.4) K/mm3 [place] # 0.6 (0.0-0.8) K/mm3 Eos # 0.2 (0.0-0.4) K/mm3 Baso # 0.0 (0.0-0.1) K/mm3 Seg Neutrophils % 68.1 (40.0-70.0) % Seg Neutrophils # 4.5 (1.8-7.7) K/mm3 Sodium 139 (137-145) mmol/L Potassium 4.4 (3.6-5.0) mmol/L Chloride 104.1 (98-107) mmol/L Carbon Dioxide 22 (22-30) mmol/L Anion Gap 17 mmol/L BUN 17 (9-20) mg/dL Creatinine 0.8 (0.8-1.5) mg/dL Estimated GFR > 60 ml/min BUN/Creatinine Ratio 21 % Glucose 91 (75-100) mg/dL Calcium 9.6 (8.4-10.2) mg/dL Troponin T < 0.010 < 0.010 (0.00-0.029) ng/mL 12/31/17 Range/Units 18:28 WBC (4.5-11.0) K/mm3 RBC (3.65-5.03) M/mm3 Hgb (11.8-15.2) gm/dl Hct (35.5-45.6) % MCV (84-94) fl MCH (28-32) pg MCHC (32-34) % RDW (13.2-15.2) % Plt Count (140-440) K/mm3 Lymph % (Auto) (13.4-35.0) % [place] % (Auto) (0.0-7.3) % Eos % (Auto) (0.0-4.3) % Baso % (Auto) (0.0-1.8) % Lymph # (1.2-5.4) K/mm3 [place] # (0.0-0.8) K/mm3 Eos # (0.0-0.4) K/mm3 Baso # (0.0-0.1) K/mm3 Seg Neutrophils % (40.0-70.0) % Seg Neutrophils # (1.8-7.7) K/mm3 Sodium (137-145) mmol/L Potassium (3.6-5.0) mmol/L Chloride (98-107) mmol/L Carbon Dioxide (22-30) mmol/L Anion Gap mmol/L BUN (9-20) mg/dL Creatinine (0.8-1.5) mg/dL Estimated GFR ml/min BUN/Creatinine Ratio % Glucose (75-100) mg/dL Calcium (8.4-10.2) mg/dL Troponin T < 0.010 (0.00-0.029) ng/mL - Radiology Data Radiology results: report reviewed FINAL REPORT PROCEDURE: CT ABDOMEN PELVIS W CON TECHNIQUE: Computerized axial tomography of the abdomen and pelvis was performed after the IV injection of iodinated nonionic contrast. HISTORY: abd pain COMPARISON: No prior studies are available for comparison. FINDINGS: An in homogeneously enhancing mass lesion measuring 9.0 x 7.5 x 8.3 centimeters in AP, transverse and craniocaudal dimensions is noted involving predominantly segments 6 and 7 of right lobe. Spleen, and bilateral adrenal glands are within normal limits. A simple cyst measuring 2 centimeters is noted involving the midpole right kidney. Otherwise bilateral kidneys demonstrate normal enhancement without hydronephrosis. Urinary bladder is contracted and its morfin appear thickened mildly. Aorta is of normal caliber. There is no free fluid or free air. Gallbladder is unremarkable. Small bowel loops are within normal limits. Multiple colonic diverticula are noted without evidence of diverticulitis. Appendix is not distinctly visualized. There are no inflammatory changes in the right lower quadrant. Vertebral height is normal. IMPRESSION: Large in homogeneously enhancing mass lesion involving the right lobe liver predominantly is suspicious for a neoplasm. Mild thickening of the urinary bladder morfin may be secondary to contracted status. However other etiologies such as cystitis cannot be excluded. - Medical Decision Making ct report reviewed lft's, lipase, coags added to labs hospitalist informed for admission Critical care attestation.: If time is entered above; I have spent that time in minutes in the direct care of this critically ill patient, excluding procedure time. ED Disposition Clinical Impression: Liver mass Chest pain Qualifiers: Chest pain type: unspecified Qualified Code(s): R07.9 - Chest pain, unspecified CAD (coronary artery disease) Qualifiers: Coronary Disease-Associated Artery/Lesion type: unspecified vessel or lesion type [place] vs. transplanted heart: [place] heart Associated angina: angina presence unspecified Qualified Code(s): I25.10 - Atherosclerotic heart disease of [place] coronary artery without angina pectoris Abdominal pain Qualifiers: Abdominal location: generalized Qualified Code(s): R10.84 - Generalized abdominal pain Disposition: OP ADMIT IP TO THIS HOSP Condition: Serious Time of Disposition: 21:01 (admit to hospitalist) <DANN PADILLADEVYN - Last Filed: 01/01/18 10:10> ED Chest Pain HPI - General Source: patient Mode of arrival: Ambulatory Limitations: No Limitations - History of Present Illness Initial Comments: She is a 47-year-old male presents emergency room with complaints of chest pain 3 days. Patient states the chest pain is center chest and radiates to his left chest. Patient states the pain is better when he rests and worse with exertion. Patient states the pain is a 7 out of 10. Patient also complains of abdominal pain 3 days. Patient states the pain is a 10 out of 10. Patient states that the pain as a bloating and burning sensation. Patient states that it is a generalized pain but mostly to the right upper quadrant. Patient also complains of nausea vomiting and diarrhea. Denies fever or chills. Patient denies shortness of breath. MD Complaint: chest pain -: Sudden Pain Location: substernal Pain Radiation: other (l chest) Severity: severe Severity scale (0 -10): 7 Quality: sharp Consistency: constant Improves With: rest Worsens With: exertion, movement re: nausea, vomting, diaphoresis. denies: dyspnea, sense of impending doom Other Symptoms: denies: cough, fever, syncope, rash, acid taste in mouth, leg swelling, palpitations, burping Treatments Prior to Arrival: none Aspirin use within the Past 7 Days: (1) Yes - Related Data On Oral Contraceptives: No Heart Score - HEART Score History: Moderately suspicious EKG: Non-specific Age: 45-65 Risk factors: > 3 risk factors or hx of atherosclerotic disease Troponin: < normal limit HEART Score: 5 ED Review of Systems Comment: All other systems reviewed and negative Constitutional: denies: chills, fever Eyes: denies: eye pain, eye discharge, vision change ENT: denies: ear pain, throat pain Respiratory: denies: cough, shortness of breath, wheezing Cardiovascular: chest pain. denies: palpitations Endocrine: no symptoms reported Gastrointestinal: abdominal pain, nausea, vomiting, diarrhea Genitourinary: denies: urgency, dysuria Musculoskeletal: denies: back pain, joint swelling, arthralgia Skin: denies: rash, lesions Neurological: denies: headache, weakness, paresthesias Psychiatric: denies: anxiety, depression Hematological/Lymphatic: denies: easy bleeding, easy bruising ED Past Medical Hx - Past Medical History Previous Medical History?: Yes Hx Hypertension: Yes Hx CVA: Yes (TIA x2 in November 2014) Hx Congestive Heart Failure: No Hx Diabetes: No Hx Liver Disease: Yes Hx Sickle Cell Disease: No Hx Asthma: No Hx COPD: No Hx HIV: No Additional medical history: AFIBHYPO THYROIDGOUTHIGH CHOL. cardiac stents x 2 - Surgical History Past Surgical History?: Yes Hx Coronary Stent: Yes (x 2) Additional Surgical History: cardiac albation - Family History Family history: CAD/PA, hypertension - Social History Smoking Status: Never Smoker Substance Use Type: None ED Physical Exam - General Limitations: No Limitations General appearance: alert, in no apparent distress - Head Head exam: Present: atraumatic, normocephalic - Eye Eye exam: Present: normal appearance - ENT ENT exam: Present: mucous membranes moist - Neck Neck exam: Present: normal inspection - Respiratory Respiratory exam: Present: normal lung sounds bilaterally. Absent: respiratory distress - Cardiovascular Cardiovascular Exam: Present: regular rate, normal rhythm. Absent: systolic murmur, diastolic murmur, rubs, gallop - GI/Abdominal GI/Abdominal exam: Present: soft, tenderness (gen ttp of abd), normal bowel sounds - Rectal Rectal exam: Present: deferred - Extremities Exam Extremities exam: Present: normal inspection - Back Exam Back exam: Present: normal inspection - Neurological Exam Neurological exam: Present: alert, oriented X3 - Psychiatric Psychiatric exam: Present: normal affect, normal mood - Skin Skin exam: Present: warm, dry, intact, normal color. Absent: rash ED Course - Reevaluation(s) Reevaluation #1: Discussed all results with patient. Patient agrees to plan of care and admission. Patient will be admitted to the hospitalist service for further evaluation treatment. 12/31/17 20:20 - Consultations Consultation #1: Hospital was consulted for admission. Hospitalist to admit patient. Hospitalist to assume care 12/31/17 20:21 MARK score - Mark Score Age > 65: (0) No Aspirin use within the Past 7 Days: (1) Yes 3 or more CAD Risk Factors: (1) Yes 2 or more Angina events in past 24 hrs: (1) Yes Known CAD with more than 50% Stenosis: (1) Yes Elevated Cardiac Markers: (0) No ST Deviation Greater than 0.5mm: (0) No MARK Score: 4 ED Medical Decision Making - Lab Data Result diagrams: 01/01/18 05:13 01/01/18 05:13 - EKG Data -: EKG Interpreted by Nd EKG shows normal: sinus rhythm, axis, intervals, QRS complexes, ST-T waves Rate: normal - Radiology Data Radiology results: pending - Medical Decision Making Patient is a 47-year-old male presents to emergency room with complaints of chest pain and abdominal pain. Patient has CT done and is pending. Patient had a negative initial cardiac workup. Patient will be admitted to the hospitalist service for further evaluation treatment. Patient labs are unremarkable initial cardiac workup negative - Differential Diagnosis cp. acs. cad. abd pain. gerd. gastritis. ED Disposition Is pt being admited?: Yes Does the pt Need Aspirin: No Time of Disposition: 20:23
[2017-12-31] MEDS ORDERED: NACL 0.9% 100 ML ONE (19:55)
--- NOTE | 2017-12-31 20:54 | Cat Scan Report ---
FINAL REPORT PROCEDURE: CT ABDOMEN PELVIS W CON TECHNIQUE: Computerized axial tomography of the abdomen and pelvis was performed after the IV injection of iodinated nonionic contrast. HISTORY: abd pain COMPARISON: No prior studies are available for comparison. FINDINGS: An in homogeneously enhancing mass lesion measuring 9.0 x 7.5 x 8.3 centimeters in AP, transverse and craniocaudal dimensions is noted involving predominantly segments 6 and 7 of right lobe. Spleen, and bilateral adrenal glands are within normal limits. A simple cyst measuring 2 centimeters is noted involving the midpole right kidney. Otherwise bilateral kidneys demonstrate normal enhancement without hydronephrosis. Urinary bladder is contracted and its morfin appear thickened mildly. Aorta is of normal caliber. There is no free fluid or free air. Gallbladder is unremarkable. Small bowel loops are within normal limits. Multiple colonic diverticula are noted without evidence of diverticulitis. Appendix is not distinctly visualized. There are no inflammatory changes in the right lower quadrant. Vertebral height is normal. IMPRESSION: Large in homogeneously enhancing mass lesion involving the right lobe liver predominantly is suspicious for a neoplasm. Mild thickening of the urinary bladder morfin may be secondary to contracted status. However other etiologies such as cystitis cannot be excluded.
[2017-12-31] MEDS ORDERED: ZOFRAN IV ONE (21:36)
[2017-12-31] MEDS ORDERED: MORPHINE IV ONE (21:36)
[2017-12-31 21:41] LABS: INR 0.97 (0.87-1.13)
[2017-12-31 21:42] LABS: Partial Thromboplastin Time 27.3 Sec. (24.2-36.6)
[2017-12-31 21:49] LABS: Alanine Aminotransferase 61 units/L (7-56); Albumin 4.6 g/dL (3.9-5)
[2017-12-31 22:05] LABS: Bilirubin,Direct < 0.2 mg/dL (0-0.2)
[2017-12-31 22:13] LABS: Bilirubin,Urine NEG (Negative); Blood,Urine NEG (Negative); Color,Urine Yellow (Yellow); Mucus,Urine FEW /HPF; Protein,Urine <15 mg/dL mg/dL (Negative); Urobilinogen,Urine < 2.0 mg/dL (<2.0)
[2017-12-31] MEDS ORDERED: SODIUM CHLORIDE FLUSH SYRINGE 10 ML IV PRN (23:08)
[2017-12-31] MEDS ORDERED: TYLENOL PO PRN (23:08)
--- NOTE | 2017-12-31 23:13 | History and Physical Report ---
History of Present Illness Date of examination: 12/31/17 History of present illness: 47-year-old male with a history of hypertension, hypothyroidism, coronary artery disease comes emergency room with complaints of worsening nausea and vomiting over the last 5 weeks. He stated that his LFTs have been elevated over the last 3 years, just a slight increased for which they were being monitored. He started having right upper quadrant pain, mid abdomen pain which he described as sharp, intermittent, intensity 7/10, lasting for hours, no radiation, pain better with pain medication given in the emergency room. Also complaining of right shoulder and neck pain Admits to gaining weight. He still has been loose, whitish yellowish in color. Patient was a heavy drinker in the past, he quit 12 years ago, no history of hepatitis. He had complain of chest pain per The emergency room physician, currently denies chest pain Review of systems Constitutional: no weight loss, chills, fever Ears, eyes, nose, mouth and throat: no nasal congestion, no nasal discharge, no sinus pressure, no vision change, no red eye. Neck: No neck pain or rigidity. Cardiovascular: no chest pain, palpitations Respiratory: no cough, shortness of breath Gastrointestinal: no hematochezia Genitourinary : no frequency , no hematuria Musculoskeletal: no joint swelling or muscle ache Integumentary: no rash, no pruritis Neurological: no parathesias, no numbness, no focal weakness Endocrine: no cold or heat intolerance, no polyuria or polydipsia Hematologic/Lymphatic: no easy bruising, no easy bleeding, no gland swelling Allergic/Immunologic: no urticaria, no angioedema. PAST MEDICAL HISTORY: hypertension, hypothyroidism, coronary artery disease PAST SURGICAL HISTORY: Appendectomy, hernia repair SOCIAL HISTORY: No alcohol, no drugs, tobacco FAMILY HISTORY: Hypertension Medications and Allergies Allergies Allergy/AdvReac Type Severity Reaction Status Date / Time moxifloxacin HCl Allergy Rash Verified 03/01/15 10:51 [From Avelox] peanut Allergy Swelling Verified 07/07/16 12:42 sulfamethoxazole Allergy Headache Verified 01/24/15 09:18 [From Bactrim] trimethoprim [From Bactrim] Allergy Headache Verified 03/01/15 10:51 Home Medications Medication Instructions Recorded Confirmed Last Taken Type Carisoprodol [Soma] 350 mg PO QID 09/17/17 12/31/17 09/17/17 10:00 History Gabapentin [Neurontin] 800 mg PO TID 09/17/17 12/31/17 09/17/17 10:00 History Clopidogrel [Plavix] 75 mg PO DAILY #30 tablet 09/19/17 12/31/17 Unknown Rx Pantoprazole [Protonix TAB] 40 mg PO DAILY #30 tablet 09/19/17 12/31/17 Unknown Rx Cetirizine HCl [All Day Allergy] 10 mg PO DAILY 12/31/17 12/31/17 Unknown History DULoxetine [Cymbalta] 30 mg PO DAILY 12/31/17 12/31/17 Unknown History Levothyroxine [Synthroid] 75 mcg PO DAILY 12/31/17 12/31/17 Unknown History Montelukast [Singulair] 10 mg PO DAILY 12/31/17 12/31/17 Unknown History Naproxen Sodium [Naproxen Sodium 375 mg PO BID 12/31/17 12/31/17 Unknown History Cr] Testosterone Cypionate 200 mg IM QID 12/31/17 12/31/17 Unknown History [Depo-Testosterone] dilTIAZem CD [Cardizem CD] 180 mg PO DAILY 12/31/17 12/31/17 Unknown History Exam - Physical Exam Narrative exam: Gen. appearance: Patient lying in bed, no apparent distress HEENT: Normocephalic, atraumatic, pupils equally round and reactive to light, extraocular movement intact, and no sclericterus,. No JVD or thyromegaly or nodule,neck supple, no carotid bruit ,mucous membranes moist, no exudate or erythema Heart: S1, S2, regular rate and rhythm Lungs: Clear bilaterally, breathing comfortable Abdomen: Positive bowel sounds, tender right upper quadrant, nondistended, no organomegaly Extremity:no edema cyanosis, clubbing Skin: no rash, dry, warm Neuro: Oriented 3, cranial nerves II-12 intact, speech is fluent, motor and sensory intact - Constitutional Vitals: Temp Pulse Resp BP Pulse Ox 98.7 F 71 15 136/95 98 12/31/17 12:49 12/31/17 19:30 12/31/17 19:30 12/31/17 19:30 12/31/17 19:30 Results - Labs CBC & Chem 7: 01/01/18 05:13 01/02/18 06:10 Labs: Abnormal lab results 12/31/17 12/31/17 12/31/17 Range/Units 13:09 21:11 21:50 RBC 5.20 H (3.65-5.03) M/mm3 [place] % (Auto) 8.6 H (0.0-7.3) % AST 41 H (5-40) units/L ALT 61 H (7-56) units/L Alkaline Phosphatase 162 H (35-129) units/L Ur Specific [place] > 1.030 H (1.003-1.030) - Imaging and Cardiology CT scan - abdomen: report reviewed CT scan - pelvis: report reviewed Assessment and Plan Assessment Liver mass most likely malignancy Coronary artery disease Hypertension Hypothyroidism Plan Admit to medicine Consult oncology, IV morphine Check hepatits panel, cardiac enzymes, DVT prophylaxis
[2017-12-31 23:53] LABS: Creatine Kinase MB 1.9 ng/mL (0.0-4.0)
[2018-01-01] MEDS ORDERED: ALUM-MAG HYDROX-SIMETH 200-200-20MG/5ML PO ONE (01:06)
[2018-01-01] MEDS: MORPHINE IV PRN ×5 (02:03→21:26)
[2018-01-01 05:43] LABS: Basophils % (Auto) 0.5 % (0.0-1.8); Eosinophils # (Auto) 0.2 K/mm3 (0.0-0.4); Eosinophils % (Auto) 3.2 % (0.0-4.3); Hematocrit 42.3 % (35.5-45.6); Hemoglobin 14.4 gm/dl (11.8-15.2); Lymphocytes # (Auto) 1.4 K/mm3 (1.2-5.4); Mean Corpuscular HGB Conc 34 % (32-34); Mean Corpuscular Hemoglobin 29 pg (28-32); Mean Corpuscular Volume 86 fl (84-94); Monocytes # (Auto) 0.6 K/mm3 (0.0-0.8); Monocytes % (Auto) 8.4 % (0.0-7.3); Platelet Count 217 K/mm3 (140-440); Red Cell Distribution Width 14.2 % (13.2-15.2)
[2018-01-01 06:09] LABS: Creatine Kinase MB 1.9 ng/mL (0.0-4.0)
[2018-01-01 06:11] LABS: Alanine Aminotransferase 57 units/L (7-56); Albumin 4.3 g/dL (3.9-5); BUN/Creatinine Ratio 16; Blood Urea Nitrogen 14 mg/dL (9-20); Hemolysis Index 5
[2018-01-01] MEDS: SYNTHROID PO SCH (07:03)
[2018-01-01 07:36] LABS: Alanine Aminotransferase 56 units/L (7-56); Albumin 4.3 g/dL (3.9-5)
[2018-01-01 07:45] LABS: Bilirubin,Direct < 0.2 mg/dL (0-0.2)
[2018-01-01] MEDS ORDERED: NON-FORMULARY (Gabapentin [Neurontin] 800 MG) PO SCH (08:00)
[2018-01-01] MEDS ORDERED: SYNTHROID PO SCH (10:00)
[2018-01-01] MEDS ORDERED: LOVENOX SUB-Q SCH (10:00)
[2018-01-01] MEDS: NEURONTIN PO SCH ×3 (10:01→21:02)
[2018-01-01] MEDS: CARDIZEM CD PO SCH (10:01)
[2018-01-01] MEDS: PROTONIX PO SCH (10:01)
[2018-01-01] MEDS: PLAVIX PO SCH (10:01)
[2018-01-01] MEDS: CYMBALTA PO SCH (10:01)
[2018-01-01] MEDS: SINGULAIR PO SCH (10:01)
[2018-01-01] MEDS: SODIUM CHLORIDE FLUSH SYRINGE 10 ML IV SCH ×2 (10:02→21:01)
[2018-01-01] MEDS: LOVENOX SUB-Q SCH (10:04)
[2018-01-01] MEDS: ZOFRAN IV PRN ×2 (12:35→21:26)
--- NOTE | 2018-01-01 14:56 | Event Note ---
Date: 01/01/18 liver lesion' vomiting diarrhea dictated - [id number] Liver mass bx and tumor markers ordered
[2018-01-01 16:02] LABS: HCG,Quantitative < 2 mIU/mL (0-1)
--- NOTE | 2018-01-01 17:12 | Progress Note ---
Assessment and Plan Assessment and plan: 47 year old male with past medical history significant for CAD, hypertension, obesity presented to the ED with complaints of nausea or vomiting and abdominal pain. Patient had been drinking heavily and quit 12 years ago. No fever, weight loss, jaundice. CT abdomen and pelvis showed right lobe liver mass suspicious for malignancy Right lobe liver mass - Suspicious for malignancy - Hematology oncology was consulted and ordered malignancy markers - Patient may need possible liver biopsy CAD, hypertension, hypothyroidism - Stable continue all medications Obesity - I will sexual assault counselor about weight loss DVT prophylaxis - On Lovenox Disposition - Continue patient's care - We will follow hematology oncology recommendations History Interval history: Patient was seen and evaluated this morning, patient didn't have abdominal pain. Hospitalist Physical - Physical exam Narrative exam: Not in cardiopulmonary distress. The patient is obese. Vital signs as documented. Head exam is unremarkable. No scleral icterus . Neck is without jugular venous distension, thyromegaly, or carotid bruits. Lungs are clear to auscultation. Cardiac exam reveals regular rate and Rhythm. First and second heart sounds normal. No murmurs, rubs or gallops. Abdominal exam reveals normal bowel sounds, no masses, no organomegaly and no aortic enlargement. Extremities are nonedematous and both femoral and pedal pulses are normal. ORNAMENTAL METAL ERECTOR: Alert and oriented 3. No focal weakness. - Constitutional Vitals: Temp Pulse Resp BP Pulse Ox 97.4 F L 71 20 129/93 96 01/01/18 09:26 01/01/18 09:26 01/01/18 09:26 01/01/18 09:26 01/01/18 09:26 Results - Labs CBC & Chem 7: 01/01/18 05:13 01/01/18 05:13 Labs: Laboratory Last Values WBC 7.2 K/mm3 (4.5-11.0) 01/01/18 05:13 RBC 4.90 M/mm3 (3.65-5.03) 01/01/18 05:13 Hgb 14.4 gm/dl (11.8-15.2) 01/01/18 05:13 Hct 42.3 % (35.5-45.6) 01/01/18 05:13 MCV 86 fl (84-94) 01/01/18 05:13 MCH 29 pg (28-32) 01/01/18 05:13 MCHC 34 % (32-34) 01/01/18 05:13 RDW 14.2 % (13.2-15.2) 01/01/18 05:13 Plt Count 217 K/mm3 (140-440) 01/01/18 05:13 Lymph % (Auto) 20.0 % (13.4-35.0) 01/01/18 05:13 [place] % (Auto) 8.4 % (0.0-7.3) H 01/01/18 05:13 Eos % (Auto) 3.2 % (0.0-4.3) 01/01/18 05:13 Baso % (Auto) 0.5 % (0.0-1.8) 01/01/18 05:13 Lymph # 1.4 K/mm3 (1.2-5.4) 01/01/18 05:13 [place] # 0.6 K/mm3 (0.0-0.8) 01/01/18 05:13 Eos # 0.2 K/mm3 (0.0-0.4) 01/01/18 05:13 Baso # 0.0 K/mm3 (0.0-0.1) 01/01/18 05:13 Seg Neutrophils % 67.9 % (40.0-70.0) 01/01/18 05:13 Seg Neutrophils # 4.9 K/mm3 (1.8-7.7) 01/01/18 05:13 PT 13.4 Sec. (12.2-14.9) 12/31/17 21:11 INR 0.97 (0.87-1.13) 12/31/17 21:11 APTT 27.3 Sec. (24.2-36.6) 12/31/17 21:11 Sodium 140 mmol/L (137-145) 01/01/18 05:13 Potassium 3.7 mmol/L (3.6-5.0) 01/01/18 05:13 Chloride 103.8 mmol/L (98-107) 01/01/18 05:13 Carbon Dioxide 24 mmol/L (22-30) 01/01/18 05:13 Anion Gap 16 mmol/L 01/01/18 05:13 BUN 14 mg/dL (9-20) 01/01/18 05:13 Creatinine 0.9 mg/dL (0.8-1.5) 01/01/18 05:13 Estimated GFR > 60 ml/min 01/01/18 05:13 BUN/Creatinine Ratio 16 % 01/01/18 05:13 Glucose 107 mg/dL (75-100) H 01/01/18 05:13 Calcium 9.0 mg/dL (8.4-10.2) 01/01/18 05:13 Total Bilirubin 0.40 mg/dL (0.1-1.2) 01/01/18 06:54 Direct Bilirubin < 0.2 mg/dL (0-0.2) 01/01/18 06:54 Indirect Bilirubin 0.2 mg/dL 01/01/18 06:54 AST 35 units/L (5-40) 01/01/18 06:54 ALT 56 units/L (7-56) 01/01/18 06:54 Alkaline Phosphatase 145 units/L (35-129) H 01/01/18 06:54 Total Creatine Kinase 147 units/L (55-170) 01/01/18 05:13 CK-MB (CK-2) 1.9 ng/mL (0.0-4.0) 01/01/18 05:13 CK-MB (CK-2) Rel Index 1.2 (0-4) 01/01/18 05:13 Troponin T < 0.010 ng/mL (0.00-0.029) 01/01/18 05:13 Total Protein 6.6 g/dL (6.3-8.2) 01/01/18 06:54 Albumin 4.3 g/dL (3.9-5) 01/01/18 06:54 Albumin/Globulin Ratio 1.9 % 01/01/18 06:54 Lipase 52 units/L (13-60) 12/31/17 21:11 Prostate Specific Ag 0.90 ng/mL (0.00-4.00) 01/01/18 14:53 HCG, Quant < 2 mIU/mL (0-1) H 01/01/18 14:53 Urine Color Yellow (Yellow) 12/31/17 21:50 Urine Turbidity Clear (Clear) 12/31/17 21:50 Urine pH 6.0 (5.0-7.0) 12/31/17 21:50 Ur Specific [place] > 1.030 (1.003-1.030) H 12/31/17 21:50 Urine Protein <15 mg/dl mg/dL (Negative) 12/31/17 21:50 Urine Glucose (UA) Neg mg/dL (Negative) 12/31/17 21:50 Urine Ketones Neg mg/dL (Negative) 12/31/17 21:50 Urine Blood Neg (Negative) 12/31/17 21:50 Urine Nitrite Neg (Negative) 12/31/17 21:50 Urine Bilirubin Neg (Negative) 12/31/17 21:50 Urine Urobilinogen < 2.0 mg/dL (<2.0) 12/31/17 21:50 Ur Leukocyte Esterase Neg (Negative) 12/31/17 21:50 Urine WBC (Auto) 3.0 /HPF (0.0-6.0) 12/31/17 21:50 Urine RBC (Auto) 1.0 /HPF (0.0-6.0) 12/31/17 21:50 Urine Mucus Few /HPF 12/31/17 21:50
[2018-01-01] MEDS: SOMA PO SCH ×2 (17:37→21:01)
--- NOTE | 2018-01-02 02:58 | Consultation ---
REFERRED BY: Gerardo Handy MD REASON FOR CONSULTATION: Liver lesion. HISTORY OF PRESENT ILLNESS: I saw the patient, a 47-year-old patient in the medical floor. The patient has a history of hypertension, hypothyroidism, coronary artery disease. The patient states he has been feeling unwell for a few months, but has been having worsening nausea, vomiting for the last 5-6 weeks. He said he had abnormal liver function tests for about 3 years, which were being monitored. He also had a right upper quadrant pain during this admission. This pain was about a score of 7/10, lasted for a few hours and he came to hospital for the same. He also had shoulder pain and neck pain. The patient mentioned that he has been having vomiting and diarrhea for the last few weeks. Diarrhea was first normal in color, but then later pale and then now green. The patient has a history of alcohol use in the past, which he has quit about 12 years ago. REVIEW OF SYSTEMS: At this time, no headache, no visual disturbances. No ear discharge, no chest pain. Had abdominal pain. Had history of nausea, vomiting, diarrhea. No hematemesis, no hematochezia. No seizure or syncope. No loss of consciousness. No focal weakness. No heat or cold intolerance. No shortness of breath at rest. PAST MEDICAL HISTORY: Hypertension, hypothyroidism, coronary artery disease. PAST SURGICAL HISTORY: Appendectomy, hernia surgery. SOCIAL HISTORY: No history of alcohol usage at this time, but he had heavy alcohol usage up to 12 years ago. No history of drug usage. No history of tobacco. FAMILY HISTORY: Positive for hypertension. ALLERGIES: MOXIFLOXACIN, BACTRIM AND PEANUT. HOME MEDICATIONS: Included carisoprodol, gabapentin, clopidogrel, pantoprazole, cetirizine, Cymbalta, levothyroxine, testosterone, diltiazem. PHYSICAL EXAMINATION: VITAL SIGNS: Temperature 97, pulse 71, respirations 20, BP 129/93. HEENT: No pallor. No icterus. NECK: No neck lymph nodes. CARDIOVASCULAR: S1, S2. LUNGS: Vesicular breathing. ABDOMEN: Soft, obese. EXTREMITIES: No calf tenderness. NEUROLOGIC: Alert, awake, oriented. LABORATORY DATA: White cell 7, hemoglobin 14, MCV 86, platelet 217. Potassium 3.7, creatinine 0.9, bilirubin 0.4. AST 41, ALT 61, alkaline phosphatase 162. RADIOLOGY: CT abdomen and pelvis done on 12/31/2017. This shows enhancing lesion 9 cm in the right lobe of liver. Spleen is normal in size. ASSESSMENT AND PLAN: 1. Enhancing large right lobe of liver lesion, neoplasm suspected. 2. I discussed with the patient regarding liver biopsy. 3. History of abnormal LFTs. 4. History of vomiting and diarrhea. 5. History of hypertension. 6. History of hypothyroidism. 7. History of coronary artery disease. 8. We will do tumor markers and follow the patient. JOB# [id number] NM/NTS
[2018-01-02] MEDS: MORPHINE IV PRN ×5 (05:26→22:56)
[2018-01-02] MEDS: SYNTHROID PO SCH (05:27)
[2018-01-02 07:29] LABS: Alanine Aminotransferase 52 units/L (7-56); Albumin 4.2 g/dL (3.9-5); BUN/Creatinine Ratio 11; Blood Urea Nitrogen 10 mg/dL (9-20); Hemolysis Index 8
[2018-01-02] MEDS: NEURONTIN PO SCH ×3 (08:42→22:55)
[2018-01-02] MEDS: SINGULAIR PO SCH (09:55)
[2018-01-02] MEDS: ZOFRAN IV PRN ×4 (09:56→22:56)
[2018-01-02] MEDS: PLAVIX PO SCH (09:56)
[2018-01-02] MEDS: PROTONIX PO SCH (09:56)
[2018-01-02] MEDS: SOMA PO SCH ×4 (09:56→22:56)
[2018-01-02] MEDS: LOVENOX SUB-Q SCH (09:57)
[2018-01-02] MEDS: CYMBALTA PO SCH (09:57)
[2018-01-02] MEDS: CARDIZEM CD PO SCH (10:00)
[2018-01-02] MEDS: SODIUM CHLORIDE FLUSH SYRINGE 10 ML IV SCH ×2 (10:00→22:56)
--- NOTE | 2018-01-02 15:31 | Progress Note ---
Assessment and Plan Assessment and plan: 47 year old male with past medical history significant for CAD, hypertension, obesity presented to the ED with complaints of nausea or vomiting and abdominal pain. Patient had been drinking heavily and quit 12 years ago. No fever, weight loss, jaundice. CT abdomen and pelvis showed right lobe liver mass suspicious for malignancy Right lobe liver mass - Suspicious for malignancy - Hematology oncology was consulted and ordered malignancy markers - Per oncology patient needed to have liver biopsy before discharge CAD, hypertension, hypothyroidism - Stable continue all medications Obesity - I will drug and alcohol counsellor about weight loss DVT prophylaxis - On Lovenox Disposition - Will be discharged once the patient got liver biopsy done. History Interval history: Patient was seen and evaluated this morning, patient's abdominal pain is adequately controlled. Hospitalist Physical - Physical exam Narrative exam: Not in cardiopulmonary distress. The patient is obese. Vital signs as documented. Head exam is unremarkable. No scleral icterus . Neck is without jugular venous distension, thyromegaly, or carotid bruits. Lungs are clear to auscultation. Cardiac exam reveals regular rate and Rhythm. First and second heart sounds normal. No murmurs, rubs or gallops. Abdominal exam reveals normal bowel sounds, no masses, no organomegaly and no aortic enlargement. Extremities are nonedematous and both femoral and pedal pulses are normal. SUBASSEMBLIES WIRER: Alert and oriented 3. No focal weakness. - Constitutional Vitals: Temp Pulse Resp BP Pulse Ox 97.9 F 83 20 140/80 95 01/02/18 13:03 01/02/18 13:03 01/02/18 14:50 01/02/18 13:03 01/02/18 13:03 Results - Labs CBC & Chem 7: 01/01/18 05:13 01/02/18 06:10 Labs: Laboratory Last Values WBC 7.2 K/mm3 (4.5-11.0) 01/01/18 05:13 RBC 4.90 M/mm3 (3.65-5.03) 01/01/18 05:13 Hgb 14.4 gm/dl (11.8-15.2) 01/01/18 05:13 Hct 42.3 % (35.5-45.6) 01/01/18 05:13 MCV 86 fl (84-94) 01/01/18 05:13 MCH 29 pg (28-32) 01/01/18 05:13 MCHC 34 % (32-34) 01/01/18 05:13 RDW 14.2 % (13.2-15.2) 01/01/18 05:13 Plt Count 217 K/mm3 (140-440) 01/01/18 05:13 Lymph % (Auto) 20.0 % (13.4-35.0) 01/01/18 05:13 [place] % (Auto) 8.4 % (0.0-7.3) H 01/01/18 05:13 Eos % (Auto) 3.2 % (0.0-4.3) 01/01/18 05:13 Baso % (Auto) 0.5 % (0.0-1.8) 01/01/18 05:13 Lymph # 1.4 K/mm3 (1.2-5.4) 01/01/18 05:13 [place] # 0.6 K/mm3 (0.0-0.8) 01/01/18 05:13 Eos # 0.2 K/mm3 (0.0-0.4) 01/01/18 05:13 Baso # 0.0 K/mm3 (0.0-0.1) 01/01/18 05:13 Seg Neutrophils % 67.9 % (40.0-70.0) 01/01/18 05:13 Seg Neutrophils # 4.9 K/mm3 (1.8-7.7) 01/01/18 05:13 PT 13.4 Sec. (12.2-14.9) 12/31/17 21:11 INR 0.97 (0.87-1.13) 12/31/17 21:11 APTT 27.3 Sec. (24.2-36.6) 12/31/17 21:11 Sodium 140 mmol/L (137-145) 01/02/18 06:10 Potassium 4.3 mmol/L (3.6-5.0) 01/02/18 06:10 Chloride 102.8 mmol/L (98-107) 01/02/18 06:10 Carbon Dioxide 21 mmol/L (22-30) L 01/02/18 06:10 Anion Gap 21 mmol/L 01/02/18 06:10 BUN 10 mg/dL (9-20) 01/02/18 06:10 Creatinine 0.9 mg/dL (0.8-1.5) 01/02/18 06:10 Estimated GFR > 60 ml/min 01/02/18 06:10 BUN/Creatinine Ratio 11 % 01/02/18 06:10 Glucose 102 mg/dL (75-100) H 01/02/18 06:10 Calcium 9.0 mg/dL (8.4-10.2) 01/02/18 06:10 Total Bilirubin 0.40 mg/dL (0.1-1.2) 01/02/18 06:10 Direct Bilirubin < 0.2 mg/dL (0-0.2) 01/01/18 06:54 Indirect Bilirubin 0.2 mg/dL 01/01/18 06:54 AST 28 units/L (5-40) 01/02/18 06:10 ALT 52 units/L (7-56) 01/02/18 06:10 Alkaline Phosphatase 159 units/L (35-129) H 01/02/18 06:10 Total Creatine Kinase 147 units/L (55-170) 01/01/18 05:13 CK-MB (CK-2) 1.9 ng/mL (0.0-4.0) 01/01/18 05:13 CK-MB (CK-2) Rel Index 1.2 (0-4) 01/01/18 05:13 Troponin T < 0.010 ng/mL (0.00-0.029) 01/01/18 05:13 Total Protein 6.9 g/dL (6.3-8.2) 01/02/18 06:10 Albumin 4.2 g/dL (3.9-5) 01/02/18 06:10 Albumin/Globulin Ratio 1.6 % 01/02/18 06:10 Lipase 52 units/L (13-60) 12/31/17 21:11 Prostate Specific Ag 0.90 ng/mL (0.00-4.00) 01/01/18 14:53 HCG, Quant < 2 mIU/mL (0-1) H 01/01/18 14:53 Urine Color Yellow (Yellow) 12/31/17 21:50 Urine Turbidity Clear (Clear) 12/31/17 21:50 Urine pH 6.0 (5.0-7.0) 12/31/17 21:50 Ur Specific [place] > 1.030 (1.003-1.030) H 12/31/17 21:50 Urine Protein <15 mg/dl mg/dL (Negative) 12/31/17 21:50 Urine Glucose (UA) Neg mg/dL (Negative) 12/31/17 21:50 Urine Ketones Neg mg/dL (Negative) 12/31/17 21:50 Urine Blood Neg (Negative) 12/31/17 21:50 Urine Nitrite Neg (Negative) 12/31/17 21:50 Urine Bilirubin Neg (Negative) 12/31/17 21:50 Urine Urobilinogen < 2.0 mg/dL (<2.0) 12/31/17 21:50 Ur Leukocyte Esterase Neg (Negative) 12/31/17 21:50 Urine WBC (Auto) 3.0 /HPF (0.0-6.0) 12/31/17 21:50 Urine RBC (Auto) 1.0 /HPF (0.0-6.0) 12/31/17 21:50 Urine Mucus Few /HPF 12/31/17 21:50
--- NOTE | 2018-01-02 19:13 | Hem/Onc Progress Note ---
Assessment and Plan 1. Enhancing large right lobe of liver lesion, neoplasm suspected. 2. liver biopsy. 3. History of abnormal LFTs. 4. History of vomiting and diarrhea. 5. History of hypertension. 6. History of hypothyroidism. 7. History of coronary artery disease. 8. tumor markers and follow the patient. - Patient Problems (1) Liver mass Current Visit: Yes Status: Acute Subjective Date of service: 01/02/18 Principal diagnosis: liver mass Interval history: pt had vomiting 01/01 Objective - Constitutional Vitals: Last Vital Signs Temp 98.0 F 01/02/18 16:25 Pulse 80 01/02/18 16:25 Resp 20 01/02/18 18:55 BP 140/84 01/02/18 16:25 Pulse Ox 96 01/02/18 16:25 Pain Intensity (0-10): 1/10 General appearance: no acute distress Performance status: 0-fully active - EENT Eyes: PERRL ENT: clear oral mucosa Lymph node exam: negative cervical, negative supraclavicular - Neck Neck: supple - Respiratory Respiratory effort: Positive: normal Respiratory: bilateral: CTA - Cardiovascular Heart Sounds: Present: S1 & S2 Extremities: No edema - Gastrointestinal General gastrointestinal: Present: soft Rectal Exam: deferred - Genitourinary Male genitourinary: Present: deferred - Integumentary Integumentary: warm - Musculoskeletal Musculoskeletal: strength equal bilaterally - Neurologic Neurologic: moves all extremities - Psychiatric Psychiatric: appropriate mood/affect - Allied health notes Allied health notes reviewed: nursing - Labs Lab Results: Laboratory Results - last 24 hr 01/02/18 06:10 Sodium 140 Potassium 4.3 Chloride 102.8 Carbon Dioxide 21 L Anion Gap 21 BUN 10 Creatinine 0.9 Estimated GFR > 60 BUN/Creatinine Ratio 11 Glucose 102 H Calcium 9.0 Total Bilirubin 0.40 AST 28 ALT 52 Alkaline Phosphatase 159 H Total Protein 6.9 Albumin 4.2 Albumin/Globulin Ratio 1.6
[2018-01-03] MEDS: ZOFRAN IV PRN ×5 (04:54→22:38)
[2018-01-03] MEDS: MORPHINE IV PRN ×5 (04:54→22:38)
[2018-01-03] MEDS: SYNTHROID PO SCH ×2 (04:54→06:34)
[2018-01-03] MEDS: NEURONTIN PO SCH ×3 (08:32→21:19)
[2018-01-03] MEDS: SODIUM CHLORIDE FLUSH SYRINGE 10 ML IV SCH ×2 (09:30→21:20)
[2018-01-03] MEDS: LOVENOX SUB-Q SCH (09:32)
[2018-01-03] MEDS: PLAVIX PO SCH (09:33)
[2018-01-03] MEDS: CYMBALTA PO SCH (09:33)
[2018-01-03] MEDS: SINGULAIR PO SCH (09:34)
[2018-01-03] MEDS: PROTONIX PO SCH (09:34)
[2018-01-03] MEDS: CARDIZEM CD PO SCH (09:35)
[2018-01-03] MEDS: SOMA PO SCH ×4 (09:36→21:19)
--- NOTE | 2018-01-03 12:04 | Progress Note ---
Assessment and Plan We will plan CT-guided biopsy of right lobe hepatic mass for tomorrow Subjective Date of service: 01/03/18 Principal diagnosis: liver mass Interval history: Patient with interval development of right lobe hepatic mass. He complains intermittently of nausea and pain following meals. No history of hepatic disease. Objective - Constitutional Vitals: Vital Signs - 12hr 01/03/18 01/03/18 01/03/18 04:55 08:29 09:07 Temperature 97.4 F L 97.6 F Pulse Rate 74 72 Respiratory 20 18 20 Rate Blood Pressure 129/85 133/86 O2 Sat by Pulse 94 95 98 Oximetry 01/03/18 01/03/18 09:32 09:35 Temperature Pulse Rate 72 Respiratory 20 Rate Blood Pressure 133/86 O2 Sat by Pulse Oximetry General appearance: Present: no acute distress - EENT Eyes: PERRL, EOM intact ENT: hearing intact - Neck Neck: supple, normal ROM - Respiratory Respiratory effort: normal - Breasts Breasts: deferred Extremities: no ischemia - Gastrointestinal General gastrointestinal: Present: soft Rectal Exam: deferred - Psychiatric Psychiatric: appropriate mood/affect, cooperative - Labs CBC & Chem 7: 01/01/18 05:13 01/02/18 06:10
--- NOTE | 2018-01-03 15:04 | Progress Note ---
Assessment and Plan Assessment and plan: 47 year old male with past medical history significant for CAD, hypertension, obesity presented to the ED with complaints of nausea or vomiting and abdominal pain. Patient had been drinking heavily and quit 12 years ago. No fever, weight loss, jaundice. CT abdomen and pelvis showed right lobe liver mass suspicious for malignancy Right lobe liver mass - Suspicious for malignancy - Hematology oncology was consulted and ordered malignancy markers - CT-guided biopsy of the right hepatic lobe will be done tomorrow by interventional radiology CAD, hypertension, hypothyroidism - Stable continue all medications Obesity - I will parliamentary counsel about weight loss DVT prophylaxis - On Lovenox Disposition - Will be discharged once the patient got liver biopsy done. History Interval history: Patient was seen and evaluated this morning, patient's abdominal pain is adequately controlled. Hospitalist Physical - Physical exam Narrative exam: Not in cardiopulmonary distress. The patient is obese. Vital signs as documented. Head exam is unremarkable. No scleral icterus . Neck is without jugular venous distension, thyromegaly, or carotid bruits. Lungs are clear to auscultation. Cardiac exam reveals regular rate and Rhythm. First and second heart sounds normal. No murmurs, rubs or gallops. Abdominal exam reveals normal bowel sounds, no masses, no organomegaly and no aortic enlargement. Extremities are nonedematous and both femoral and pedal pulses are normal. MEDICAL REIMBURSEMENT SPECIALIST: Alert and oriented 3. No focal weakness. - Constitutional Vitals: Temp Pulse Resp BP Pulse Ox 97.6 F 72 20 133/86 98 01/03/18 08:29 01/03/18 09:35 01/03/18 14:32 01/03/18 09:35 01/03/18 09:07 General appearance: Present: no acute distress Results - Labs CBC & Chem 7: 01/01/18 05:13 01/02/18 06:10 Labs: Laboratory Last Values WBC 7.2 K/mm3 (4.5-11.0) 01/01/18 05:13 RBC 4.90 M/mm3 (3.65-5.03) 01/01/18 05:13 Hgb 14.4 gm/dl (11.8-15.2) 01/01/18 05:13 Hct 42.3 % (35.5-45.6) 01/01/18 05:13 MCV 86 fl (84-94) 01/01/18 05:13 MCH 29 pg (28-32) 01/01/18 05:13 MCHC 34 % (32-34) 01/01/18 05:13 RDW 14.2 % (13.2-15.2) 01/01/18 05:13 Plt Count 217 K/mm3 (140-440) 01/01/18 05:13 Lymph % (Auto) 20.0 % (13.4-35.0) 01/01/18 05:13 [place] % (Auto) 8.4 % (0.0-7.3) H 01/01/18 05:13 Eos % (Auto) 3.2 % (0.0-4.3) 01/01/18 05:13 Baso % (Auto) 0.5 % (0.0-1.8) 01/01/18 05:13 Lymph # 1.4 K/mm3 (1.2-5.4) 01/01/18 05:13 [place] # 0.6 K/mm3 (0.0-0.8) 01/01/18 05:13 Eos # 0.2 K/mm3 (0.0-0.4) 01/01/18 05:13 Baso # 0.0 K/mm3 (0.0-0.1) 01/01/18 05:13 Seg Neutrophils % 67.9 % (40.0-70.0) 01/01/18 05:13 Seg Neutrophils # 4.9 K/mm3 (1.8-7.7) 01/01/18 05:13 PT 13.4 Sec. (12.2-14.9) 12/31/17 21:11 INR 0.97 (0.87-1.13) 12/31/17 21:11 APTT 27.3 Sec. (24.2-36.6) 12/31/17 21:11 Sodium 140 mmol/L (137-145) 01/02/18 06:10 Potassium 4.3 mmol/L (3.6-5.0) 01/02/18 06:10 Chloride 102.8 mmol/L (98-107) 01/02/18 06:10 Carbon Dioxide 21 mmol/L (22-30) L 01/02/18 06:10 Anion Gap 21 mmol/L 01/02/18 06:10 BUN 10 mg/dL (9-20) 01/02/18 06:10 Creatinine 0.9 mg/dL (0.8-1.5) 01/02/18 06:10 Estimated GFR > 60 ml/min 01/02/18 06:10 BUN/Creatinine Ratio 11 % 01/02/18 06:10 Glucose 102 mg/dL (75-100) H 01/02/18 06:10 Calcium 9.0 mg/dL (8.4-10.2) 01/02/18 06:10 Total Bilirubin 0.40 mg/dL (0.1-1.2) 01/02/18 06:10 Direct Bilirubin < 0.2 mg/dL (0-0.2) 01/01/18 06:54 Indirect Bilirubin 0.2 mg/dL 01/01/18 06:54 AST 28 units/L (5-40) 01/02/18 06:10 ALT 52 units/L (7-56) 01/02/18 06:10 Alkaline Phosphatase 159 units/L (35-129) H 01/02/18 06:10 Total Creatine Kinase 147 units/L (55-170) 01/01/18 05:13 CK-MB (CK-2) 1.9 ng/mL (0.0-4.0) 01/01/18 05:13 CK-MB (CK-2) Rel Index 1.2 (0-4) 01/01/18 05:13 Troponin T < 0.010 ng/mL (0.00-0.029) 01/01/18 05:13 Total Protein 6.9 g/dL (6.3-8.2) 01/02/18 06:10 Albumin 4.2 g/dL (3.9-5) 01/02/18 06:10 Albumin/Globulin Ratio 1.6 % 01/02/18 06:10 Lipase 52 units/L (13-60) 12/31/17 21:11 Prostate Specific Ag 0.90 ng/mL (0.00-4.00) 01/01/18 14:53 HCG, Quant < 2 mIU/mL (0-1) H 01/01/18 14:53 Urine Color Yellow (Yellow) 12/31/17 21:50 Urine Turbidity Clear (Clear) 12/31/17 21:50 Urine pH 6.0 (5.0-7.0) 12/31/17 21:50 Ur Specific [place] > 1.030 (1.003-1.030) H 12/31/17 21:50 Urine Protein <15 mg/dl mg/dL (Negative) 12/31/17 21:50 Urine Glucose (UA) Neg mg/dL (Negative) 12/31/17 21:50 Urine Ketones Neg mg/dL (Negative) 12/31/17 21:50 Urine Blood Neg (Negative) 12/31/17 21:50 Urine Nitrite Neg (Negative) 12/31/17 21:50 Urine Bilirubin Neg (Negative) 12/31/17 21:50 Urine Urobilinogen < 2.0 mg/dL (<2.0) 12/31/17 21:50 Ur Leukocyte Esterase Neg (Negative) 12/31/17 21:50 Urine WBC (Auto) 3.0 /HPF (0.0-6.0) 12/31/17 21:50 Urine RBC (Auto) 1.0 /HPF (0.0-6.0) 12/31/17 21:50 Urine Mucus Few /HPF 12/31/17 21:50
[2018-01-04] MEDS: ZOFRAN IV PRN ×5 (03:14→19:29)
[2018-01-04] MEDS: MORPHINE IV PRN ×4 (03:14→13:27)
[2018-01-04] MEDS: SYNTHROID PO SCH (05:27)
[2018-01-04] MEDS: NEURONTIN PO SCH ×3 (08:14→19:29)
--- NOTE | 2018-01-04 08:24 | Hem/Onc Progress Note ---
Assessment and Plan 1. Radiology - Enhancing large right lobe of liver lesion, neoplasm suspected. 2. liver biopsy - 01/04. 3. History of abnormal LFTs. 4. History of vomiting and diarrhea. 5. History of hypertension. 6. History of hypothyroidism. 7. History of coronary artery disease. 8. tumor markers PSA and hcg normal - others ordered - follow the patient. Due to his vomiting - ? GI eval for EGD if liver bx inconclusive - Patient Problems (1) Liver mass Current Visit: Yes Status: Acute Subjective Date of service: 01/04/18 Principal diagnosis: liver lesion Interval history: pt had vomiting 01/03 due liver bx Objective - Constitutional Vitals: Last Vital Signs Temp 98.4 F 01/04/18 04:45 Pulse 78 01/04/18 08:00 Resp 18 01/04/18 04:45 BP 119/78 01/04/18 04:45 Pulse Ox 93 01/03/18 23:50 Pain Intensity (0-10): denies any pain General appearance: no acute distress Performance status: 0-fully active - EENT Eyes: PERRL ENT: clear oral mucosa Lymph node exam: negative cervical, negative supraclavicular - Neck Neck: supple - Respiratory Respiratory effort: Positive: normal Respiratory: bilateral: CTA - Cardiovascular Heart Sounds: Present: S1 & S2 Extremities: No edema - Gastrointestinal General gastrointestinal: Present: soft Rectal Exam: deferred - Genitourinary Male genitourinary: Present: deferred - Integumentary Integumentary: warm - Musculoskeletal Musculoskeletal: strength equal bilaterally - Neurologic Neurologic: moves all extremities - Psychiatric Psychiatric: appropriate mood/affect
[2018-01-04] MEDS ORDERED: SUBLIMAZE IV ONE (09:16)
[2018-01-04] MEDS ORDERED: VERSED IV ONE ×2 (09:16→09:31)
[2018-01-04] MEDS ORDERED: XYLOCAINE 1% 20 mL ONE (09:21)
[2018-01-04] MEDS ORDERED: SUBLIMAZE ONE (09:32)
[2018-01-04] MEDS ORDERED: GELFOAM 12 X 7 TP ONE (09:46)
[2018-01-04] MEDS: PLAVIX PO SCH (11:47)
[2018-01-04] MEDS: SINGULAIR PO SCH (11:47)
[2018-01-04] MEDS: CYMBALTA PO SCH (11:47)
[2018-01-04] MEDS: SOMA PO SCH ×4 (11:47→22:56)
[2018-01-04] MEDS: PROTONIX PO SCH (11:47)
[2018-01-04] MEDS: CARDIZEM CD PO SCH (11:47)
[2018-01-04] MEDS: SODIUM CHLORIDE FLUSH SYRINGE 10 ML IV SCH ×2 (11:48→22:56)
[2018-01-04] MEDS: LOVENOX SUB-Q SCH (11:49)
--- NOTE | 2018-01-04 14:33 | Cat Scan Report ---
Exam: CT-guided target liver biopsy Clinical indication: Patient with a history of a right lobe mass that has developed since prior CT suspicious for neoplasm Date: Procedure: Following an explanation of the risks, benefits and alternatives; written informed consent was obtained. Patient was brought to the CT suite and placed in supine position on the gantry. Initial director of restaurant images the upper abdomen were performed an appropriate access site was chosen along the anterior lateral right chest wall. The overlying skin was prepped and draped in the usual sterile fashion. 1% lidocaine was used for anesthesia. Using limited CT guidance, a 15 cm 17-gauge trocar needle was advanced to the margin of the mass. A total of 2 core biopsies were obtained and handed off the pathologist in attendance. There were determined to be adequate for analysis. Samples were also sent for culture. The trocar needle was removed following the implantation of Gelfoam along the tract for hemostasis. Postbiopsy images demonstrated no perihepatic fluid collection or intra-abdominal fluid to suggest bleeding. A sterile dressing was then applied on the skin surface. The patient tolerated the procedure well. There were no immediate post procedure complications. No Conscious sedation was performed under guidance of radiologic nursing. Continuous cardiopulmonary monitoring was utilized during Impression: 1) CT-guided target liver biopsy with 2 core samples obtained and handed off to the pathologist in attendance. There were determined to be adequate for analysis. Samples sent her culture as well.
[2018-01-04] MEDS ORDERED: DILAUDID IV ONE (14:48)
--- NOTE | 2018-01-04 16:03 | Progress Note ---
Assessment and Plan Assessment and plan: 47 year old male with past medical history significant for CAD, hypertension, obesity presented to the ED with complaints of nausea or vomiting and abdominal pain. Patient had been drinking heavily and quit 12 years ago. No fever, weight loss, jaundice. CT abdomen and pelvis showed right lobe liver mass suspicious for malignancy Right lobe liver mass - Suspicious for malignancy - Hematology oncology was consulted and ordered malignancy markers which were negative - CT-guided biopsy of the right hepatic lobe was done today by interventional radiology - I have discussed with hematology oncology and he wants to keep the patient is inpatient because of the continued nausea and vomiting despite Zofran, may considerGI evaluation CAD, hypertension, hypothyroidism - Stable continue all medications Obesity DVT prophylaxis - On Lovenox Disposition -Per Hematology oncology History Interval history: Patient was seen and evaluated this morning, complaining abdominal pain at the site of biopsy. Patient has nausea and vomiting despite Zofran. Hospitalist Physical - Physical exam Narrative exam: Not in cardiopulmonary distress. The patient is obese. Vital signs as documented. Head exam is unremarkable. No scleral icterus . Neck is without jugular venous distension, thyromegaly, or carotid bruits. Lungs are clear to auscultation. Cardiac exam reveals regular rate and Rhythm. First and second heart sounds normal. No murmurs, rubs or gallops. Abdominal exam reveals normal bowel sounds, no masses, no organomegaly and no aortic enlargement. Extremities are nonedematous and both femoral and pedal pulses are normal. 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 No focal weakness. - Constitutional Vitals: Temp Pulse Resp BP Pulse Ox 98.2 F 90 16 115/87 97 01/04/18 11:29 01/04/18 09:39 01/04/18 11:29 01/04/18 11:29 01/04/18 09:39 General appearance: Present: no acute distress Results - Labs CBC & Chem 7: 01/01/18 05:13 01/02/18 06:10 Labs: Laboratory Last Values WBC 7.2 K/mm3 (4.5-11.0) 01/01/18 05:13 RBC 4.90 M/mm3 (3.65-5.03) 01/01/18 05:13 Hgb 14.4 gm/dl (11.8-15.2) 01/01/18 05:13 Hct 42.3 % (35.5-45.6) 01/01/18 05:13 MCV 86 fl (84-94) 01/01/18 05:13 MCH 29 pg (28-32) 01/01/18 05:13 MCHC 34 % (32-34) 01/01/18 05:13 RDW 14.2 % (13.2-15.2) 01/01/18 05:13 Plt Count 217 K/mm3 (140-440) 01/01/18 05:13 Lymph % (Auto) 20.0 % (13.4-35.0) 01/01/18 05:13 [place] % (Auto) 8.4 % (0.0-7.3) H 01/01/18 05:13 Eos % (Auto) 3.2 % (0.0-4.3) 01/01/18 05:13 Baso % (Auto) 0.5 % (0.0-1.8) 01/01/18 05:13 Lymph # 1.4 K/mm3 (1.2-5.4) 01/01/18 05:13 [place] # 0.6 K/mm3 (0.0-0.8) 01/01/18 05:13 Eos # 0.2 K/mm3 (0.0-0.4) 01/01/18 05:13 Baso # 0.0 K/mm3 (0.0-0.1) 01/01/18 05:13 Seg Neutrophils % 67.9 % (40.0-70.0) 01/01/18 05:13 Seg Neutrophils # 4.9 K/mm3 (1.8-7.7) 01/01/18 05:13 PT 13.4 Sec. (12.2-14.9) 12/31/17 21:11 INR 0.97 (0.87-1.13) 12/31/17 21:11 APTT 27.3 Sec. (24.2-36.6) 12/31/17 21:11 Sodium 140 mmol/L (137-145) 01/02/18 06:10 Potassium 4.3 mmol/L (3.6-5.0) 01/02/18 06:10 Chloride 102.8 mmol/L (98-107) 01/02/18 06:10 Carbon Dioxide 21 mmol/L (22-30) L 01/02/18 06:10 Anion Gap 21 mmol/L 01/02/18 06:10 BUN 10 mg/dL (9-20) 01/02/18 06:10 Creatinine 0.9 mg/dL (0.8-1.5) 01/02/18 06:10 Estimated GFR > 60 ml/min 01/02/18 06:10 BUN/Creatinine Ratio 11 % 01/02/18 06:10 Glucose 102 mg/dL (75-100) H 01/02/18 06:10 Calcium 9.0 mg/dL (8.4-10.2) 01/02/18 06:10 Total Bilirubin 0.40 mg/dL (0.1-1.2) 01/02/18 06:10 Direct Bilirubin < 0.2 mg/dL (0-0.2) 01/01/18 06:54 Indirect Bilirubin 0.2 mg/dL 01/01/18 06:54 AST 28 units/L (5-40) 01/02/18 06:10 ALT 52 units/L (7-56) 01/02/18 06:10 Alkaline Phosphatase 159 units/L (35-129) H 01/02/18 06:10 Total Creatine Kinase 147 units/L (55-170) 01/01/18 05:13 CK-MB (CK-2) 1.9 ng/mL (0.0-4.0) 01/01/18 05:13 CK-MB (CK-2) Rel Index 1.2 (0-4) 01/01/18 05:13 Troponin T < 0.010 ng/mL (0.00-0.029) 01/01/18 05:13 Total Protein 6.9 g/dL (6.3-8.2) 01/02/18 06:10 Albumin 4.2 g/dL (3.9-5) 01/02/18 06:10 Albumin/Globulin Ratio 1.6 % 01/02/18 06:10 Lipase 52 units/L (13-60) 12/31/17 21:11 Prostate Specific Ag 0.90 ng/mL (0.00-4.00) 01/01/18 14:53 HCG, Quant < 2 mIU/mL (0-1) H 01/01/18 14:53 Urine Color Yellow (Yellow) 12/31/17 21:50 Urine Turbidity Clear (Clear) 12/31/17 21:50 Urine pH 6.0 (5.0-7.0) 12/31/17 21:50 Ur Specific [place] > 1.030 (1.003-1.030) H 12/31/17 21:50 Urine Protein <15 mg/dl mg/dL (Negative) 12/31/17 21:50 Urine Glucose (UA) Neg mg/dL (Negative) 12/31/17 21:50 Urine Ketones Neg mg/dL (Negative) 12/31/17 21:50 Urine Blood Neg (Negative) 12/31/17 21:50 Urine Nitrite Neg (Negative) 12/31/17 21:50 Urine Bilirubin Neg (Negative) 12/31/17 21:50 Urine Urobilinogen < 2.0 mg/dL (<2.0) 12/31/17 21:50 Ur Leukocyte Esterase Neg (Negative) 12/31/17 21:50 Urine WBC (Auto) 3.0 /HPF (0.0-6.0) 12/31/17 21:50 Urine RBC (Auto) 1.0 /HPF (0.0-6.0) 12/31/17 21:50 Urine Mucus Few /HPF 12/31/17 21:50
[2018-01-04] MEDS ORDERED: DILAUDID IV PRN (16:20)
--- NOTE | 2018-01-04 16:28 | Event Note ---
Date: 01/04/18 Patient began to complain of the onset of severe right upper quadrant abdominal pain several hours after his biopsy. A stat CT scan of the abdomen was performed which demonstrates no significant perihepatic fluid collection. There is no intra-abdominal fluid cut to suggest that the patient has bled. Patient has intrahepatic biliary gas secondary to Gelfoam embolization of the tract following the biopsy. We'll treat patient symptomatically with increasing his IV pain medication.
--- NOTE | 2018-01-04 16:48 | Cat Scan Report ---
FINAL REPORT EXAM: CT ABDOMEN PELVIS WO CON HISTORY: abd pain s/p liver biopsy TECHNIQUE: Following oral administration of GI contrast axial helical imaging through the abdomen and pelvis with sagittal and coronal reformatted images obtained. Comparison: CT abdomen and pelvis dated December 31, 2017 FINDINGS: The lung bases are without infiltrate, pneumothorax or pleural fluid collection. Again noted is the large mass in the right lobe of the liver that does not appear to be significantly changed in size in the interval. There are small collections of air in the anterior lateral and superior aspect of the right lobe of the liver along presumed biopsy tracts. There is no evidence of an intrahepatic or subcapsular hematoma. There is no free fluid in the upper abdomen. The spleen, pancreas, gallbladder and adrenal glands are unremarkable in appearance. There is an approximately 1.8 centimeter hypodensity, probable cyst, in the right kidney. There are punctate stones in the renal pelvis bilaterally. There is no evidence of hydronephrosis nor hydroureter. The bowel is normal caliber. There is a small hiatal hernia. There is colonic diverticulosis without radiographic evidence of diverticulitis. There is no evidence of pneumoperitoneum. The abdominal aorta is normal caliber. There is no evidence of pathologic intra-abdominal adenopathy by CT size criteria. The urinary bladder is moderately distended and unremarkable in appearance. The prostate gland is mildly enlarged with maximal axial dimension of 4.5 centimeters. The bony structures are unremarkable. There is a small umbilical hernia that contains fat. IMPRESSION: 1. Small collections of air in the right lobe of the liver along the biopsy tracts. 2. Otherwise no significant change since previous study dated December 31, 2017. If the patient remains symptomatic and if further imaging is required, CT abdomen with IV contrast may be helpful.
[2018-01-04] MEDS: DILAUDID PCA 6MG/30ML IV SCH (20:30)
[2018-01-05] MEDS: ZOFRAN IV PRN ×2 (00:42→09:50)
[2018-01-05] MEDS: SYNTHROID PO SCH (05:30)
--- NOTE | 2018-01-05 08:15 | Hem/Onc Progress Note ---
Assessment and Plan 1. Radiology - Enhancing large right lobe of liver lesion, neoplasm suspected. 2. liver biopsy - 01/04. 3. History of abnormal LFTs. 4. History of vomiting and diarrhea. 5. History of hypertension. 6. History of hypothyroidism. 7. History of coronary artery disease. 8. tumor markers PSA and hcg normal - others ordered - follow the patient. Due to his vomiting - ? GI eval for EGD an option. on pain meds post bx - radiology does not show any bx site abn. OP follow up for the liver bx report - in 1-2 weeks CA 19-9 normal - CEA and AFP pending - Patient Problems (1) Liver mass Current Visit: Yes Status: Acute Subjective Date of service: 01/05/18 Principal diagnosis: liver mass Interval history: pt had liver bx - 01/04 post bx abdo pain - on meds Objective - Constitutional Vitals: Last Vital Signs Temp 98.1 F 01/05/18 04:00 Pulse 72 01/05/18 04:00 Resp 18 01/05/18 04:00 BP 122/76 01/05/18 04:00 Pulse Ox 93 01/05/18 04:00 Pain Intensity (0-10): 2/10 (abdo - site of bx) General appearance: mild distress Performance status: 2- selfcare, ambulatory - EENT Eyes: PERRL ENT: clear oral mucosa Lymph node exam: negative cervical, negative supraclavicular - Neck Neck: supple, normal ROM - Respiratory Respiratory effort: Positive: normal Respiratory: bilateral: CTA - Cardiovascular Heart Sounds: Present: S1 & S2 Extremities: No edema - Gastrointestinal General gastrointestinal: Present: soft, non-tender Rectal Exam: deferred - Genitourinary Male genitourinary: Present: deferred - Integumentary Integumentary: warm - Musculoskeletal Musculoskeletal: strength equal bilaterally - Neurologic Neurologic: moves all extremities - Psychiatric Psychiatric: appropriate mood/affect - Labs Lab Results: Laboratory Results - last 24 hr 01/01/18 14:47 CA 19-9 Antigen 4
[2018-01-05] MEDS: PLAVIX PO SCH (09:41)
[2018-01-05] MEDS: LOVENOX SUB-Q SCH ×2 (09:41→10:01)
[2018-01-05] MEDS: SINGULAIR PO SCH (09:41)
[2018-01-05] MEDS: CYMBALTA PO SCH (09:41)
[2018-01-05] MEDS: NEURONTIN PO SCH ×3 (09:47→22:11)
[2018-01-05] MEDS: SOMA PO SCH ×4 (09:47→22:12)
[2018-01-05] MEDS: CARDIZEM CD PO SCH (09:48)
[2018-01-05] MEDS: PROTONIX PO SCH (09:49)
[2018-01-05] MEDS: SODIUM CHLORIDE FLUSH SYRINGE 10 ML IV SCH ×2 (09:50→22:12)
--- NOTE | 2018-01-05 09:55 | Progress Note ---
Assessment and Plan Assessment and plan: 47 year old male with past medical history significant for CAD, hypertension, obesity presented to the ED with complaints of nausea or vomiting and abdominal pain. Patient had been drinking heavily and quit 12 years ago. No fever, weight loss, jaundice. CT abdomen and pelvis showed right lobe liver mass suspicious for malignancy Right lobe liver mass - Suspicious for malignancy - Hematology oncology was consulted and ordered malignancy markers which were negative - CT-guided biopsy of the right hepatic lobe was done By interventional radiology AWAITING PATHOLOGY - I have discussed with hematology oncology and he wants to keep the patient is inpatient because of the continued nausea and vomiting despite Zofran, CAD, hypertension, hypothyroidism - Stable continue all medications Obesity -WEGHT LOSS ADVISED ETOH ABUSE -[facility] PROTOCOL Chronic Pain syndrome -continue it business analyst pump Intractable nausea and vomiting -zofran, GI evaluation DVT prophylaxis - On Lovenox Disposition -Per Hematology oncology History Interval history: Patient seen and examined, remains with ANIMAL SKINNER pump for pain control, still with intermittent pain to the abdomen but no new vomiting today. Hospitalist Physical - Constitutional Vitals: Temp Pulse Resp BP Pulse Ox 98.4 F 91 H 18 151/91 95 01/05/18 08:49 01/05/18 09:48 01/05/18 08:49 01/05/18 09:48 01/05/18 08:49 General appearance: Present: no acute distress Results - Labs CBC & Chem 7: 01/01/18 05:13 01/02/18 06:10 Labs: Laboratory Last Values WBC 7.2 K/mm3 (4.5-11.0) 01/01/18 05:13 RBC 4.90 M/mm3 (3.65-5.03) 01/01/18 05:13 Hgb 14.4 gm/dl (11.8-15.2) 01/01/18 05:13 Hct 42.3 % (35.5-45.6) 01/01/18 05:13 MCV 86 fl (84-94) 01/01/18 05:13 MCH 29 pg (28-32) 01/01/18 05:13 MCHC 34 % (32-34) 01/01/18 05:13 RDW 14.2 % (13.2-15.2) 01/01/18 05:13 Plt Count 217 K/mm3 (140-440) 01/01/18 05:13 Lymph % (Auto) 20.0 % (13.4-35.0) 01/01/18 05:13 [place] % (Auto) 8.4 % (0.0-7.3) H 01/01/18 05:13 Eos % (Auto) 3.2 % (0.0-4.3) 01/01/18 05:13 Baso % (Auto) 0.5 % (0.0-1.8) 01/01/18 05:13 Lymph # 1.4 K/mm3 (1.2-5.4) 01/01/18 05:13 [place] # 0.6 K/mm3 (0.0-0.8) 01/01/18 05:13 Eos # 0.2 K/mm3 (0.0-0.4) 01/01/18 05:13 Baso # 0.0 K/mm3 (0.0-0.1) 01/01/18 05:13 Seg Neutrophils % 67.9 % (40.0-70.0) 01/01/18 05:13 Seg Neutrophils # 4.9 K/mm3 (1.8-7.7) 01/01/18 05:13 PT 13.4 Sec. (12.2-14.9) 12/31/17 21:11 INR 0.97 (0.87-1.13) 12/31/17 21:11 APTT 27.3 Sec. (24.2-36.6) 12/31/17 21:11 Sodium 140 mmol/L (137-145) 01/02/18 06:10 Potassium 4.3 mmol/L (3.6-5.0) 01/02/18 06:10 Chloride 102.8 mmol/L (98-107) 01/02/18 06:10 Carbon Dioxide 21 mmol/L (22-30) L 01/02/18 06:10 Anion Gap 21 mmol/L 01/02/18 06:10 BUN 10 mg/dL (9-20) 01/02/18 06:10 Creatinine 0.9 mg/dL (0.8-1.5) 01/02/18 06:10 Estimated GFR > 60 ml/min 01/02/18 06:10 BUN/Creatinine Ratio 11 % 01/02/18 06:10 Glucose 102 mg/dL (75-100) H 01/02/18 06:10 Calcium 9.0 mg/dL (8.4-10.2) 01/02/18 06:10 Total Bilirubin 0.40 mg/dL (0.1-1.2) 01/02/18 06:10 Direct Bilirubin < 0.2 mg/dL (0-0.2) 01/01/18 06:54 Indirect Bilirubin 0.2 mg/dL 01/01/18 06:54 AST 28 units/L (5-40) 01/02/18 06:10 ALT 52 units/L (7-56) 01/02/18 06:10 Alkaline Phosphatase 159 units/L (35-129) H 01/02/18 06:10 Total Creatine Kinase 147 units/L (55-170) 01/01/18 05:13 CK-MB (CK-2) 1.9 ng/mL (0.0-4.0) 01/01/18 05:13 CK-MB (CK-2) Rel Index 1.2 (0-4) 01/01/18 05:13 Troponin T < 0.010 ng/mL (0.00-0.029) 01/01/18 05:13 Total Protein 6.9 g/dL (6.3-8.2) 01/02/18 06:10 Albumin 4.2 g/dL (3.9-5) 01/02/18 06:10 Albumin/Globulin Ratio 1.6 % 01/02/18 06:10 Lipase 52 units/L (13-60) 12/31/17 21:11 CA 19-9 Antigen 4 U/mL (<34) 01/01/18 14:47 Prostate Specific Ag 0.90 ng/mL (0.00-4.00) 01/01/18 14:53 HCG, Quant < 2 mIU/mL (0-1) H 01/01/18 14:53 Urine Color Yellow (Yellow) 12/31/17 21:50 Urine Turbidity Clear (Clear) 12/31/17 21:50 Urine pH 6.0 (5.0-7.0) 12/31/17 21:50 Ur Specific [place] > 1.030 (1.003-1.030) H 12/31/17 21:50 Urine Protein <15 mg/dl mg/dL (Negative) 12/31/17 21:50 Urine Glucose (UA) Neg mg/dL (Negative) 12/31/17 21:50 Urine Ketones Neg mg/dL (Negative) 12/31/17 21:50 Urine Blood Neg (Negative) 12/31/17 21:50 Urine Nitrite Neg (Negative) 12/31/17 21:50 Urine Bilirubin Neg (Negative) 12/31/17 21:50 Urine Urobilinogen < 2.0 mg/dL (<2.0) 12/31/17 21:50 Ur Leukocyte Esterase Neg (Negative) 12/31/17 21:50 Urine WBC (Auto) 3.0 /HPF (0.0-6.0) 12/31/17 21:50 Urine RBC (Auto) 1.0 /HPF (0.0-6.0) 12/31/17 21:50 Urine Mucus Few /HPF 12/31/17 21:50
[2018-01-05] MEDS ORDERED: ATIVAN IV PRN (09:56)
[2018-01-05] MEDS ORDERED: HALDOL IV PRN (09:56)
[2018-01-05] MEDS: COLACE PO SCH ×2 (13:38→22:11)
[2018-01-05] MEDS: DILAUDID PCA 6MG/30ML IV SCH (18:14)
[2018-01-06] MEDS: SYNTHROID PO SCH (05:23)
[2018-01-06] MEDS: PLAVIX PO SCH (09:11)
[2018-01-06] MEDS: PROTONIX PO SCH (09:12)
[2018-01-06] MEDS: CYMBALTA PO SCH (09:12)
[2018-01-06] MEDS: COLACE PO SCH ×2 (09:12→21:21)
[2018-01-06] MEDS: SINGULAIR PO SCH (09:13)
[2018-01-06] MEDS: NEURONTIN PO SCH ×3 (09:13→20:14)
[2018-01-06] MEDS: SOMA PO SCH ×4 (09:13→21:22)
[2018-01-06] MEDS: CARDIZEM CD PO SCH (09:14)
[2018-01-06] MEDS: LOVENOX SUB-Q SCH (09:15)
[2018-01-06] MEDS: SODIUM CHLORIDE FLUSH SYRINGE 10 ML IV SCH ×2 (09:16→21:22)
[2018-01-06] MEDS: ZOFRAN IV PRN (09:18)
--- NOTE | 2018-01-06 09:59 | Progress Note ---
Assessment and Plan Assessment and plan: 47 year old male with past medical history significant for CAD, hypertension, obesity presented to the ED with complaints of nausea or vomiting and abdominal pain. Patient had been drinking heavily and quit 12 years ago. No fever, weight loss, jaundice. CT abdomen and pelvis showed right lobe liver mass suspicious for malignancy Right lobe liver mass - Suspicious for malignancy - Hematology oncology was consulted and ordered malignancy markers which were negative - CT-guided biopsy of the right hepatic lobe was done By interventional radiology AWAITING PATHOLOGY - I have discussed with hematology oncology and he wants to keep the patient is inpatient because of the continued nausea and vomiting despite Zofran, CAD, hypertension, hypothyroidism - Stable continue all medications Obesity -WEGHT LOSS ADVISED ETOH ABUSE -[facility] PROTOCOL Chronic Pain syndrome -continue web pressman pump Intractable nausea and vomiting -zofran, GI evaluation - EGD with possible colonscopy planned DVT prophylaxis - On Lovenox Disposition -Per Hematology oncology History Interval history: patient seen and examine detoxy, still with shortness of breath Hospitalist Physical - Physical exam Narrative exam: Not in cardiopulmonary distress. The patient is obese. Vital signs as documented. Head exam is unremarkable. No scleral icterus . Neck is without jugular venous distension, thyromegaly, or carotid bruits. Lungs are clear to auscultation. Cardiac exam reveals regular rate and Rhythm. First and second heart sounds normal. No murmurs, rubs or gallops. Abdominal exam reveals normal bowel sounds, no masses, no organomegaly and no aortic enlargement. Extremities are nonedematous and both femoral and pedal pulses are normal. 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 No focal weakness. - Constitutional Vitals: Temp Pulse Resp BP Pulse Ox 97.8 F 85 20 117/63 95 01/06/18 08:16 01/06/18 09:14 01/06/18 08:16 01/06/18 09:14 01/06/18 08:16 General appearance: Present: no acute distress Results - Labs CBC & Chem 7: 01/01/18 05:13 01/02/18 06:10 Labs: Laboratory Last Values WBC 7.2 K/mm3 (4.5-11.0) 01/01/18 05:13 RBC 4.90 M/mm3 (3.65-5.03) 01/01/18 05:13 Hgb 14.4 gm/dl (11.8-15.2) 01/01/18 05:13 Hct 42.3 % (35.5-45.6) 01/01/18 05:13 MCV 86 fl (84-94) 01/01/18 05:13 MCH 29 pg (28-32) 01/01/18 05:13 MCHC 34 % (32-34) 01/01/18 05:13 RDW 14.2 % (13.2-15.2) 01/01/18 05:13 Plt Count 217 K/mm3 (140-440) 01/01/18 05:13 Lymph % (Auto) 20.0 % (13.4-35.0) 01/01/18 05:13 Hardy % (Auto) 8.4 % (0.0-7.3) H 01/01/18 05:13 Eos % (Auto) 3.2 % (0.0-4.3) 01/01/18 05:13 Baso % (Auto) 0.5 % (0.0-1.8) 01/01/18 05:13 Lymph # 1.4 K/mm3 (1.2-5.4) 01/01/18 05:13 Hardy # 0.6 K/mm3 (0.0-0.8) 01/01/18 05:13 Eos # 0.2 K/mm3 (0.0-0.4) 01/01/18 05:13 Baso # 0.0 K/mm3 (0.0-0.1) 01/01/18 05:13 Seg Neutrophils % 67.9 % (40.0-70.0) 01/01/18 05:13 Seg Neutrophils # 4.9 K/mm3 (1.8-7.7) 01/01/18 05:13 PT 13.4 Sec. (12.2-14.9) 12/31/17 21:11 INR 0.97 (0.87-1.13) 12/31/17 21:11 APTT 27.3 Sec. (24.2-36.6) 12/31/17 21:11 Sodium 140 mmol/L (137-145) 01/02/18 06:10 Potassium 4.3 mmol/L (3.6-5.0) 01/02/18 06:10 Chloride 102.8 mmol/L (98-107) 01/02/18 06:10 Carbon Dioxide 21 mmol/L (22-30) L 01/02/18 06:10 Anion Gap 21 mmol/L 01/02/18 06:10 BUN 10 mg/dL (9-20) 01/02/18 06:10 Creatinine 0.9 mg/dL (0.8-1.5) 01/02/18 06:10 Estimated GFR > 60 ml/min 01/02/18 06:10 BUN/Creatinine Ratio 11 % 01/02/18 06:10 Glucose 102 mg/dL (75-100) H 01/02/18 06:10 Calcium 9.0 mg/dL (8.4-10.2) 01/02/18 06:10 Total Bilirubin 0.40 mg/dL (0.1-1.2) 01/02/18 06:10 Direct Bilirubin < 0.2 mg/dL (0-0.2) 01/01/18 06:54 Indirect Bilirubin 0.2 mg/dL 01/01/18 06:54 AST 28 units/L (5-40) 01/02/18 06:10 ALT 52 units/L (7-56) 01/02/18 06:10 Alkaline Phosphatase 159 units/L (35-129) H 01/02/18 06:10 Total Creatine Kinase 147 units/L (55-170) 01/01/18 05:13 CK-MB (CK-2) 1.9 ng/mL (0.0-4.0) 01/01/18 05:13 CK-MB (CK-2) Rel Index 1.2 (0-4) 01/01/18 05:13 Troponin T < 0.010 ng/mL (0.00-0.029) 01/01/18 05:13 Total Protein 6.9 g/dL (6.3-8.2) 01/02/18 06:10 Albumin 4.2 g/dL (3.9-5) 01/02/18 06:10 Albumin/Globulin Ratio 1.6 % 01/02/18 06:10 Lipase 52 units/L (13-60) 12/31/17 21:11 CA 19-9 Antigen 4 U/mL (<34) 01/01/18 14:47 Prostate Specific Ag 0.90 ng/mL (0.00-4.00) 01/01/18 14:53 HCG, Quant < 2 mIU/mL (0-1) H 01/01/18 14:53 Urine Color Yellow (Yellow) 12/31/17 21:50 Urine Turbidity Clear (Clear) 12/31/17 21:50 Urine pH 6.0 (5.0-7.0) 12/31/17 21:50 Ur Specific Magdalena > 1.030 (1.003-1.030) H 12/31/17 21:50 Urine Protein <15 mg/dl mg/dL (Negative) 12/31/17 21:50 Urine Glucose (UA) Neg mg/dL (Negative) 12/31/17 21:50 Urine Ketones Neg mg/dL (Negative) 12/31/17 21:50 Urine Blood Neg (Negative) 12/31/17 21:50 Urine Nitrite Neg (Negative) 12/31/17 21:50 Urine Bilirubin Neg (Negative) 12/31/17 21:50 Urine Urobilinogen < 2.0 mg/dL (<2.0) 12/31/17 21:50 Ur Leukocyte Esterase Neg (Negative) 12/31/17 21:50 Urine WBC (Auto) 3.0 /HPF (0.0-6.0) 12/31/17 21:50 Urine RBC (Auto) 1.0 /HPF (0.0-6.0) 12/31/17 21:50 Urine Mucus Few /HPF 12/31/17 21:50
--- NOTE | 2018-01-06 11:07 | Gastroenterology Consultation ---
History of Present Illness - Reason for Consult Consult date: 01/06/18 intractable N/V Requesting physician: TONIE STRICKLAND - History of Present Illness Patient is a 47 y/o male with PMH of HTN, hypothyroidism, CAD (s/p drug-eluting stent in 01/2015 and 04/2016; on plavix at home), A-fib (s/p ablation 2014), ETOH /polysubstance abuse, TIA, chronic pain syndrome, and gout who presented to ED with c/o CP which has now resolved, along with abdominal pain (generalized pain but predominantly in RUQ) and N/V. Upon admission, he underwent an abdominal CT that revealed a liver mass suspicious for malignancy. Hematology/oncology was consulted with recommendations for a liver biopsy which was completed on 01/04 with path results currently pending. GI has been consulted for intractable N/V. This morning patient was standing up at the bedside sink w/o acute distress. Reports continued generalized abdominal discomfort with bloating, along with intermittent N/V x 5 weeks. States he usually tolerates 1 or 2 meals then develops N/V. He vomited x 2 episodes yesterday but ate dinner last night w/o difficultly. Has eaten breakfast this am with now nausea but no vomiting as of yet. Denies fever, wt loss, CP, SOB, jaundice, dysphagia, or signs of bleeding. Diarrhea resolved. Takes Aleve daily for chronic pain. No known hx of PUD or previous EGD. Admits to a hx of heavy alcohol use along with IV drug use. He was previously told his LFTs were mildly elevated which were being monitored by PCP (no prior evaluation by a manager requirements). No known Fhx of liver disease. Past History Past Medical History: CAD, hypertension, hypothyroidism, other ( TIA, chronic pain syndrome, and gout) Past Surgical History: appendectomy, hernia repair, PTCA, Other (paroxysmal atrial fibrillation status post A. fib ablation in December 2014) Social history: , lives with family, smoking, alcohol abuse, other ( polysubstance abuse) Medications and Allergies Allergies Allergy/AdvReac Type Severity Reaction Status Date / Time moxifloxacin HCl Allergy Rash Verified 03/01/15 10:51 [From Avelox] peanut Allergy Swelling Verified 07/07/16 12:42 sulfamethoxazole Allergy Headache Verified 01/24/15 09:18 [From Bactrim] trimethoprim [From Bactrim] Allergy Headache Verified 03/01/15 10:51 Home Medications Medication Instructions Recorded Confirmed Last Taken Type Carisoprodol [Soma] 350 mg PO QID 09/17/17 12/31/17 09/17/17 10:00 History Gabapentin [Neurontin] 800 mg PO TID 09/17/17 12/31/17 09/17/17 10:00 History Clopidogrel [Plavix] 75 mg PO DAILY #30 tablet 09/19/17 12/31/17 Unknown Rx Pantoprazole [Protonix TAB] 40 mg PO DAILY #30 tablet 09/19/17 12/31/17 Unknown Rx Cetirizine HCl [All Day Allergy] 10 mg PO DAILY 12/31/17 12/31/17 Unknown History DULoxetine [Cymbalta] 30 mg PO DAILY 12/31/17 12/31/17 Unknown History Levothyroxine [Synthroid] 75 mcg PO DAILY 12/31/17 12/31/17 Unknown History Montelukast [Singulair] 10 mg PO DAILY 12/31/17 12/31/17 Unknown History Naproxen Sodium [Naproxen Sodium 375 mg PO BID 12/31/17 12/31/17 Unknown History Cr] Testosterone Cypionate 200 mg IM QID 12/31/17 12/31/17 Unknown History [Depo-Testosterone] dilTIAZem CD [Cardizem CD] 180 mg PO DAILY 12/31/17 12/31/17 Unknown History Active Meds: Active Medications Acetaminophen (Tylenol) 650 mg PO Q4H PRN PRN Reason: Pain MILD(1-3)/Fever >100.5/FRANCOIS Carisoprodol (Soma) 350 mg PO QID [facility] [place] Last Admin: 01/06/18 09:13 Dose: 350 mg Clopidogrel Bisulfate (Plavix) 75 mg PO DAILY [facility] [place] Last Admin: 01/06/18 09:11 Dose: 75 mg Diltiazem HCl (Cardizem Cd) 180 mg PO DAILY [facility] [place] Last Admin: 01/06/18 09:14 Dose: 180 mg Docusate Sodium (Colace) 100 mg PO BID [facility] [place] Last Admin: 01/06/18 09:12 Dose: 100 mg Duloxetine HCl (Cymbalta) 30 mg PO DAILY [facility] [place] Last Admin: 01/06/18 09:12 Dose: 30 mg Enoxaparin Sodium (Lovenox) 40 mg SUB-Q QDAY@1000 [facility] [place] Last Admin: 01/06/18 09:15 Dose: Not Given Gabapentin (Neurontin) 800 mg PO TID [facility] [place] Last Admin: 01/06/18 09:13 Dose: 800 mg Haloperidol Lactate (Haldol) 5 mg IV Q1HR PRN PRN Reason: Unrespon. to mult. doses BZD's Hydromorphone HCl (Dilaudid) 0.5 mg IV Q6H PRN PRN Reason: Pain , Severe (7-10) Last Admin: 01/04/18 19:29 Dose: 0.5 mg Hydromorphone/Sodium Chloride (Dilaudid Automated Cutting Machine Operator 6mg/30ml) 0 mg IV DIRECT DEJA; Protocol Last Admin: 01/05/18 18:14 Dose: 5.2 mg Sodium Chloride (Nacl 0.9% 1000 Ml) 1,000 mls @ 50 mls/hr IV DIRECT DEJA Levothyroxine Sodium (Synthroid) 75 mcg PO DAILY@0600 [facility] [place] Last Admin: 01/06/18 05:23 Dose: 75 mcg Lorazepam (Ativan) 2 mg IV Q1HR PRN PRN Reason: CIWA-Ar 8-15 Lorazepam (Ativan) 4 mg IV Q1HR PRN PRN Reason: CIWA-Ar 16-25 Montelukast Sodium (Singulair) 10 mg PO DAILY [facility] [place] Last Admin: 01/06/18 09:13 Dose: 10 mg Morphine Sulfate (Morphine) 2 mg IV Q4H PRN PRN Reason: Pain, Moderate (4-6) Last Admin: 01/04/18 13:27 Dose: 2 mg Ondansetron HCl (Zofran) 4 mg IV Q4H PRN PRN Reason: Nausea And Vomiting Last Admin: 01/06/18 09:18 Dose: 4 mg Pantoprazole Sodium (Protonix) 40 mg PO DAILY [facility] [place] Last Admin: 01/06/18 09:12 Dose: 40 mg Sodium Chloride (Sodium Chloride Flush Syringe 10 Ml) 10 ml IV BID [facility] [place] Last Admin: 01/06/18 09:16 Dose: 10 ml Sodium Chloride (Sodium Chloride Flush Syringe 10 Ml) 10 ml IV PRN PRN PRN Reason: LINE FLUSH Review of Systems - Review of Systems All systems: negative Gastrointestinal: abdominal pain, nausea, vomiting Exam - Constitutional Vital Signs: Temp Pulse Resp BP Pulse Ox 97.8 F 85 20 117/63 95 01/06/18 08:16 01/06/18 09:14 01/06/18 08:16 01/06/18 09:14 01/06/18 08:16 General appearance: no acute distress - EENT Eyes: PERRL, EOM intact ENT: hearing intact - Respiratory Respiratory: bilateral: CTA - Cardiovascular Rhythm: regular Heart Sounds: Present: S1 & S2 - Gastrointestinal General gastrointestinal: Present: soft, non-tender, distended (slightly), normal bowel sounds - Neurologic Neurological: alert and oriented x3 - Labs CBC & Chem 7: 01/01/18 05:13 01/02/18 06:10 Assessment and Plan 1.liver mass -CT showed right lobe liver mass suspicious for malignancy -s/p CT guided biopsy by IR with path results pending (preliminary report- atypical glands in a fibrotic background w/ foci of necrosis, suspicious for malignancy) -hematology/oncology following -CA 19-9 WNL; CEA and AFP pending -will order acute hepatitis panel given hx of drug use -recommend a possible colonoscopy for further evaluation to r/o colon cancer as primary origin pending path results -continue supportive care 2.intractable N/V -Patient reports intermittent N/V x 5 weeks (2 episodes of vomiting yesterday with continued nausea this am) -etiology unclear- possible ulcer vs other -recommend an EGD for further evaluation r/o GOO vs other GI pathology -will schedule for Thursday (along with possible above colonoscopy) due to Plavix (last dose today) -decrease diet to clear liquids -continue supportive care -will follow 3.ETOH abuse -alcohol cessation -monitor for withdrawal
--- NOTE | 2018-01-06 13:05 | Hem/Onc Progress Note ---
Assessment and Plan 1. Radiology - Enhancing large right lobe of liver lesion, neoplasm suspected s /p bx 01/04 2. liver biopsy - 01/04. 3. History of abnormal LFTs. 4. History of vomiting and diarrhea. 5. History of hypertension. 6. History of hypothyroidism. 7. History of coronary artery disease. 8. tumor markers PSA and hcg normal - others ordered - follow the patient. Due to his vomiting - seen by GI eval for EGD/colonoscopy. on pain meds post bx - radiology does not show any bx site abn. 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 Objective - Constitutional Vitals: Last Vital Signs Temp 97.8 F 01/06/18 08:16 Pulse 85 01/06/18 09:14 Resp 20 01/06/18 08:16 BP 117/63 01/06/18 09:14 Pulse Ox 95 01/06/18 08:16 Pain Intensity (0-10): 2/10 General appearance: mild distress Performance status: 1-light work, ambulatory - EENT Eyes: PERRL ENT: clear oral mucosa Lymph node exam: negative cervical, negative supraclavicular - Neck Neck: supple - Respiratory Respiratory effort: Positive: normal Respiratory: bilateral: CTA - Cardiovascular Heart Sounds: Present: S1 & S2 Extremities: No edema - Gastrointestinal General gastrointestinal: Present: soft, non-tender Rectal Exam: deferred - Genitourinary Male genitourinary: Present: deferred - Musculoskeletal Musculoskeletal: strength equal bilaterally - Neurologic Neurologic: moves all extremities - Psychiatric Psychiatric: appropriate mood/affect
[2018-01-06] MEDS: NACL 0.9% 1000 ML 1,000 ML IV SCH (17:05)
[2018-01-06] MEDS: DILAUDID PCA 6MG/30ML IV SCH (17:53)
--- NOTE | 2018-01-06 21:49 | Progress Note ---
History Interval history: Patient seen and examined, remains with FRAME REPAIRER pump for pain control, still with intermittent pain to the abdomen but no new vomiting today. Hospitalist Physical - Constitutional Vitals: Temp Pulse Resp BP Pulse Ox 98.5 F 72 20 138/95 97 01/06/18 19:32 01/06/18 20:18 01/06/18 19:53 01/06/18 19:32 01/06/18 19:32 General appearance: Present: no acute distress Results - Labs CBC & Chem 7: 01/01/18 05:13 01/02/18 06:10 Labs: Laboratory Last Values WBC 7.2 K/mm3 (4.5-11.0) 01/01/18 05:13 RBC 4.90 M/mm3 (3.65-5.03) 01/01/18 05:13 Hgb 14.4 gm/dl (11.8-15.2) 01/01/18 05:13 Hct 42.3 % (35.5-45.6) 01/01/18 05:13 MCV 86 fl (84-94) 01/01/18 05:13 MCH 29 pg (28-32) 01/01/18 05:13 MCHC 34 % (32-34) 01/01/18 05:13 RDW 14.2 % (13.2-15.2) 01/01/18 05:13 Plt Count 217 K/mm3 (140-440) 01/01/18 05:13 Lymph % (Auto) 20.0 % (13.4-35.0) 01/01/18 05:13 Sargent % (Auto) 8.4 % (0.0-7.3) H 01/01/18 05:13 Eos % (Auto) 3.2 % (0.0-4.3) 01/01/18 05:13 Baso % (Auto) 0.5 % (0.0-1.8) 01/01/18 05:13 Lymph # 1.4 K/mm3 (1.2-5.4) 01/01/18 05:13 Sargent # 0.6 K/mm3 (0.0-0.8) 01/01/18 05:13 Eos # 0.2 K/mm3 (0.0-0.4) 01/01/18 05:13 Baso # 0.0 K/mm3 (0.0-0.1) 01/01/18 05:13 Seg Neutrophils % 67.9 % (40.0-70.0) 01/01/18 05:13 Seg Neutrophils # 4.9 K/mm3 (1.8-7.7) 01/01/18 05:13 PT 13.4 Sec. (12.2-14.9) 12/31/17 21:11 INR 0.97 (0.87-1.13) 12/31/17 21:11 APTT 27.3 Sec. (24.2-36.6) 12/31/17 21:11 Sodium 140 mmol/L (137-145) 01/02/18 06:10 Potassium 4.3 mmol/L (3.6-5.0) 01/02/18 06:10 Chloride 102.8 mmol/L (98-107) 01/02/18 06:10 Carbon Dioxide 21 mmol/L (22-30) L 01/02/18 06:10 Anion Gap 21 mmol/L 01/02/18 06:10 BUN 10 mg/dL (9-20) 01/02/18 06:10 Creatinine 0.9 mg/dL (0.8-1.5) 01/02/18 06:10 Estimated GFR > 60 ml/min 01/02/18 06:10 BUN/Creatinine Ratio 11 % 01/02/18 06:10 Glucose 102 mg/dL (75-100) H 01/02/18 06:10 Calcium 9.0 mg/dL (8.4-10.2) 01/02/18 06:10 Total Bilirubin 0.40 mg/dL (0.1-1.2) 01/02/18 06:10 Direct Bilirubin < 0.2 mg/dL (0-0.2) 01/01/18 06:54 Indirect Bilirubin 0.2 mg/dL 01/01/18 06:54 AST 28 units/L (5-40) 01/02/18 06:10 ALT 52 units/L (7-56) 01/02/18 06:10 Alkaline Phosphatase 159 units/L (35-129) H 01/02/18 06:10 Total Creatine Kinase 147 units/L (55-170) 01/01/18 05:13 CK-MB (CK-2) 1.9 ng/mL (0.0-4.0) 01/01/18 05:13 CK-MB (CK-2) Rel Index 1.2 (0-4) 01/01/18 05:13 Troponin T < 0.010 ng/mL (0.00-0.029) 01/01/18 05:13 Total Protein 6.9 g/dL (6.3-8.2) 01/02/18 06:10 Albumin 4.2 g/dL (3.9-5) 01/02/18 06:10 Albumin/Globulin Ratio 1.6 % 01/02/18 06:10 Lipase 52 units/L (13-60) 12/31/17 21:11 CA 19-9 Antigen 4 U/mL (<34) 01/01/18 14:47 Prostate Specific Ag 0.90 ng/mL (0.00-4.00) 01/01/18 14:53 HCG, Quant < 2 mIU/mL (0-1) H 01/01/18 14:53 Urine Color Yellow (Yellow) 12/31/17 21:50 Urine Turbidity Clear (Clear) 12/31/17 21:50 Urine pH 6.0 (5.0-7.0) 12/31/17 21:50 Ur Specific Adams > 1.030 (1.003-1.030) H 12/31/17 21:50 Urine Protein <15 mg/dl mg/dL (Negative) 12/31/17 21:50 Urine Glucose (UA) Neg mg/dL (Negative) 12/31/17 21:50 Urine Ketones Neg mg/dL (Negative) 12/31/17 21:50 Urine Blood Neg (Negative) 12/31/17 21:50 Urine Nitrite Neg (Negative) 12/31/17 21:50 Urine Bilirubin Neg (Negative) 12/31/17 21:50 Urine Urobilinogen < 2.0 mg/dL (<2.0) 12/31/17 21:50 Ur Leukocyte Esterase Neg (Negative) 12/31/17 21:50 Urine WBC (Auto) 3.0 /HPF (0.0-6.0) 12/31/17 21:50 Urine RBC (Auto) 1.0 /HPF (0.0-6.0) 12/31/17 21:50 Urine Mucus Few /HPF 12/31/17 21:50
[2018-01-07] MEDS: ZOFRAN IV PRN ×2 (00:55→21:47)
[2018-01-07] MEDS: SYNTHROID PO SCH (06:25)
[2018-01-07 07:03] LABS: Hepatitis B Core IgM Non-Reactive (NonReactive); Hepatitis B Surface Antigen Non-Reactive (Negative); Hepatitis C Virus Antibody Non-Reactive (NonReactive)
[2018-01-07] MEDS: LOVENOX SUB-Q SCH (09:39)
[2018-01-07] MEDS: SINGULAIR PO SCH (09:40)
[2018-01-07] MEDS: PROTONIX PO SCH (09:40)
[2018-01-07] MEDS: NEURONTIN PO SCH ×3 (09:40→21:23)
[2018-01-07] MEDS: CYMBALTA PO SCH (09:40)
[2018-01-07] MEDS: COLACE PO SCH ×2 (09:40→21:22)
[2018-01-07] MEDS: CARDIZEM CD PO SCH (09:40)
[2018-01-07] MEDS: SODIUM CHLORIDE FLUSH SYRINGE 10 ML IV SCH ×2 (09:41→21:23)
[2018-01-07] MEDS: SOMA PO SCH ×4 (10:00→21:23)
[2018-01-07] MEDS: ATIVAN IV PRN ×2 (11:29→18:57)
--- NOTE | 2018-01-07 11:48 | Gastroenterology Progress Note ---
Assessment and Plan 1.liver mass -CT showed right lobe liver mass suspicious for malignancy -s/p CT guided biopsy by IR with path results pending (preliminary report- atypical glands in a fibrotic background w/ foci of necrosis, suspicious for malignancy) immunostains pending -hematology/oncology following -CA 19-9 WNL; CEA and AFP pending -will order acute hepatitis panel given hx of drug use- Hepatitis B/C negative 2.intractable N/V -Patient reports intermittent N/V x 5 weeks- none this am -etiology unclear- possible ulcer vs other -recommend an EGD for further evaluation r/o GOO vs other GI pathology -will schedule for Thursday (along with possible above colonoscopy) due to Plavix (last dose yesterday) -decrease diet to clear liquids -continue supportive care -will follow 3.ETOH abuse -alcohol cessation -monitor for withdrawal - Plan for EGD/ colonoscopy tomorrow, continue to hold Plavix. Clear liquids today. Prep this PM. NPO after MN Subjective Date of service: 01/07/18 Principal diagnosis: liver mass Interval history: Pt awake and alert, sitting on side of bed. No acute distress. Objective - Constitutional Vitals: Temp Pulse Resp BP Pulse Ox 97.5 F L 71 16 153/106 98 01/07/18 08:19 01/07/18 08:19 01/07/18 08:19 01/07/18 08:19 01/07/18 08:19 General appearance: no acute distress - EENT Eyes: EOM intact ENT: hearing intact - Neck Neck: supple - Respiratory Respiratory: bilateral: diminished - Gastrointestinal General gastrointestinal: Present: soft, tender (TTP right side) - Integumentary Integumentary: Present: warm, dry - Neurologic Neurological: alert and oriented x3 - Labs CBC & Chem 7: 01/01/18 05:13 01/02/18 06:10 Labs: Laboratory Results - last 24 hr 01/07/18 05:50 Hep Bs Antigen Non-reactive Hep B Core IgM Ab Non-reactive Hepatitis C Antibody Non-reactive
--- NOTE | 2018-01-07 15:00 | Hem/Onc Progress Note ---
Assessment and Plan 1. Radiology - Enhancing large right lobe of liver lesion, neoplasm suspected s /p bx 01/04 2. liver biopsy - 01/04. 3. History of abnormal LFTs. 4. History of vomiting and diarrhea. 5. History of hypertension. 6. History of hypothyroidism. 7. History of coronary artery disease. 8. tumor markers PSA and hcg normal - others ordered - follow the patient. Due to his vomiting - seen by GI eval for EGD/colonoscopy. on pain meds post bx - radiology does not show any bx site abn. 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 nausea issues Objective - Constitutional Vitals: Last Vital Signs Temp 97.9 F 01/07/18 12:22 Pulse 79 01/07/18 12:22 Resp 18 01/07/18 12:22 BP 145/96 01/07/18 12:22 Pulse Ox 96 01/07/18 12:22 Pain Intensity (0-10): 3/10 General appearance: mild distress Performance status: 0-fully active - EENT Eyes: PERRL ENT: clear oral mucosa Lymph node exam: negative cervical - Neck Neck: supple - Respiratory Respiratory effort: Positive: normal Respiratory: bilateral: CTA - Cardiovascular Heart Sounds: Present: S1 & S2 Extremities: normal temperature - Gastrointestinal General gastrointestinal: Present: soft, tender (rt UQ) Rectal Exam: deferred - Genitourinary Male genitourinary: Present: deferred - Musculoskeletal Musculoskeletal: strength equal bilaterally - Neurologic Neurologic: moves all extremities - Psychiatric Psychiatric: appropriate mood/affect, cooperative - Labs Lab Results: Laboratory Results - last 24 hr 01/07/18 05:50 Hep Bs Antigen Non-reactive Hep B Core IgM Ab Non-reactive Hepatitis C Antibody Non-reactive
[2018-01-07] MEDS ORDERED: GOLYTELY PO ONE (17:00)
--- NOTE | 2018-01-07 19:02 | Progress Note ---
Assessment and Plan Assessment and plan: 47 year old male with past medical history significant for CAD, hypertension, obesity presented to the ED with complaints of nausea or vomiting and abdominal pain. Patient had been drinking heavily and quit 12 years ago. No fever, weight loss, jaundice. CT abdomen and pelvis showed right lobe liver mass suspicious for malignancy Right lobe liver mass - Suspicious for malignancy - Hematology oncology was consulted and ordered malignancy markers which were negative - CT-guided biopsy of the right hepatic lobe was done By interventional radiology AWAITING PATHOLOGY - I have discussed with hematology oncology and he wants to keep the patient is inpatient because of the continued nausea and vomiting despite Zofran, CAD, hypertension, hypothyroidism - Stable continue all medications Obesity -WEGHT LOSS ADVISED ETOH ABUSE -[facility] PROTOCOL Chronic Pain syndrome -continue striker off pump Intractable nausea and vomiting -zofran, GI evaluation - EGD with possible colonscopy planned DVT prophylaxis - On Lovenox Disposition -Per Hematology oncology Addressed pain control with the patient at this time,. possible opioid contributing to persistent nausea and vomiting History Interval history: patient seen and examine detoxy, still with shortness of breath Hospitalist Physical - Physical exam Narrative exam: Not in cardiopulmonary distress. The patient is obese. Vital signs as documented. Head exam is unremarkable. No scleral icterus . Neck is without jugular venous distension, thyromegaly, or carotid bruits. Lungs are clear to auscultation. Cardiac exam reveals regular rate and Rhythm. First and second heart sounds normal. No murmurs, rubs or gallops. Abdominal exam reveals normal bowel sounds, no masses, no organomegaly and no aortic enlargement. Extremities are nonedematous and both femoral and pedal pulses are normal. 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 No focal weakness. - Constitutional Vitals: Temp Pulse Resp BP Pulse Ox 97.9 F 79 18 145/96 96 01/07/18 12:22 01/07/18 12:22 01/07/18 12:22 01/07/18 12:22 01/07/18 12:22 General appearance: Present: no acute distress Results - Labs CBC & Chem 7: 01/01/18 05:13 01/02/18 06:10 Labs: Laboratory Last Values WBC 7.2 K/mm3 (4.5-11.0) 01/01/18 05:13 RBC 4.90 M/mm3 (3.65-5.03) 01/01/18 05:13 Hgb 14.4 gm/dl (11.8-15.2) 01/01/18 05:13 Hct 42.3 % (35.5-45.6) 01/01/18 05:13 MCV 86 fl (84-94) 01/01/18 05:13 MCH 29 pg (28-32) 01/01/18 05:13 MCHC 34 % (32-34) 01/01/18 05:13 RDW 14.2 % (13.2-15.2) 01/01/18 05:13 Plt Count 217 K/mm3 (140-440) 01/01/18 05:13 Lymph % (Auto) 20.0 % (13.4-35.0) 01/01/18 05:13 [place] % (Auto) 8.4 % (0.0-7.3) H 01/01/18 05:13 Eos % (Auto) 3.2 % (0.0-4.3) 01/01/18 05:13 Baso % (Auto) 0.5 % (0.0-1.8) 01/01/18 05:13 Lymph # 1.4 K/mm3 (1.2-5.4) 01/01/18 05:13 [place] # 0.6 K/mm3 (0.0-0.8) 01/01/18 05:13 Eos # 0.2 K/mm3 (0.0-0.4) 01/01/18 05:13 Baso # 0.0 K/mm3 (0.0-0.1) 01/01/18 05:13 Seg Neutrophils % 67.9 % (40.0-70.0) 01/01/18 05:13 Seg Neutrophils # 4.9 K/mm3 (1.8-7.7) 01/01/18 05:13 PT 13.4 Sec. (12.2-14.9) 12/31/17 21:11 INR 0.97 (0.87-1.13) 12/31/17 21:11 APTT 27.3 Sec. (24.2-36.6) 12/31/17 21:11 Sodium 140 mmol/L (137-145) 01/02/18 06:10 Potassium 4.3 mmol/L (3.6-5.0) 01/02/18 06:10 Chloride 102.8 mmol/L (98-107) 01/02/18 06:10 Carbon Dioxide 21 mmol/L (22-30) L 01/02/18 06:10 Anion Gap 21 mmol/L 01/02/18 06:10 BUN 10 mg/dL (9-20) 01/02/18 06:10 Creatinine 0.9 mg/dL (0.8-1.5) 01/02/18 06:10 Estimated GFR > 60 ml/min 01/02/18 06:10 BUN/Creatinine Ratio 11 % 01/02/18 06:10 Glucose 102 mg/dL (75-100) H 01/02/18 06:10 Calcium 9.0 mg/dL (8.4-10.2) 01/02/18 06:10 Total Bilirubin 0.40 mg/dL (0.1-1.2) 01/02/18 06:10 Direct Bilirubin < 0.2 mg/dL (0-0.2) 01/01/18 06:54 Indirect Bilirubin 0.2 mg/dL 01/01/18 06:54 AST 28 units/L (5-40) 01/02/18 06:10 ALT 52 units/L (7-56) 01/02/18 06:10 Alkaline Phosphatase 159 units/L (35-129) H 01/02/18 06:10 Total Creatine Kinase 147 units/L (55-170) 01/01/18 05:13 CK-MB (CK-2) 1.9 ng/mL (0.0-4.0) 01/01/18 05:13 CK-MB (CK-2) Rel Index 1.2 (0-4) 01/01/18 05:13 Troponin T < 0.010 ng/mL (0.00-0.029) 01/01/18 05:13 Total Protein 6.9 g/dL (6.3-8.2) 01/02/18 06:10 Albumin 4.2 g/dL (3.9-5) 01/02/18 06:10 Albumin/Globulin Ratio 1.6 % 01/02/18 06:10 Lipase 52 units/L (13-60) 12/31/17 21:11 CA 19-9 Antigen 4 U/mL (<34) 01/01/18 14:47 Prostate Specific Ag 0.90 ng/mL (0.00-4.00) 01/01/18 14:53 HCG, Quant < 2 mIU/mL (0-1) H 01/01/18 14:53 Urine Color Yellow (Yellow) 12/31/17 21:50 Urine Turbidity Clear (Clear) 12/31/17 21:50 Urine pH 6.0 (5.0-7.0) 12/31/17 21:50 Ur Specific [place] > 1.030 (1.003-1.030) H 12/31/17 21:50 Urine Protein <15 mg/dl mg/dL (Negative) 12/31/17 21:50 Urine Glucose (UA) Neg mg/dL (Negative) 12/31/17 21:50 Urine Ketones Neg mg/dL (Negative) 12/31/17 21:50 Urine Blood Neg (Negative) 12/31/17 21:50 Urine Nitrite Neg (Negative) 12/31/17 21:50 Urine Bilirubin Neg (Negative) 12/31/17 21:50 Urine Urobilinogen < 2.0 mg/dL (<2.0) 12/31/17 21:50 Ur Leukocyte Esterase Neg (Negative) 12/31/17 21:50 Urine WBC (Auto) 3.0 /HPF (0.0-6.0) 12/31/17 21:50 Urine RBC (Auto) 1.0 /HPF (0.0-6.0) 12/31/17 21:50 Urine Mucus Few /HPF 12/31/17 21:50 Hep Bs Antigen Non-reactive (Negative) 01/07/18 05:50 Hep B Core IgM Ab Non-reactive (NonReactive) 01/07/18 05:50 Hepatitis C Antibody Non-reactive (NonReactive) 01/07/18 05:50
[2018-01-07] MEDS: DILAUDID PCA 6MG/30ML IV SCH (22:05)
--- NOTE | 2018-01-08 07:24 | Hem/Onc Progress Note ---
Assessment and Plan 1. Radiology - Enhancing large right lobe of liver lesion, neoplasm suspected s /p bx 01/04 2. liver biopsy - 01/04. 3. History of abnormal LFTs. 4. History of vomiting and diarrhea. 5. History of hypertension. 6. History of hypothyroidism. 7. History of coronary artery disease. 8. tumor markers PSA and hcg normal - others ordered - follow the patient. Due to his vomiting - GI eval for EGD/colonoscopy. 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 GI eval prep done Objective - Constitutional Vitals: Last Vital Signs Temp 97.8 F 01/08/18 04:23 Pulse 76 01/08/18 06:00 Resp 18 01/08/18 06:05 BP 136/96 01/08/18 04:23 Pulse Ox 96 01/07/18 23:37 Pain Intensity (0-10): 1/10 (abdo) General appearance: mild distress Performance status: 2- selfcare, ambulatory - EENT Eyes: PERRL ENT: clear oral mucosa Lymph node exam: negative cervical, negative supraclavicular - Neck Neck: supple - Respiratory Respiratory effort: Positive: normal Respiratory: bilateral: CTA - Cardiovascular Heart Sounds: Present: S1 & S2 Extremities: No edema - Gastrointestinal General gastrointestinal: Present: soft. Absent: rigid Rectal Exam: deferred - Genitourinary Male genitourinary: Present: deferred - Integumentary Integumentary: warm - Musculoskeletal Musculoskeletal: strength equal bilaterally - Neurologic Neurologic: moves all extremities - Psychiatric Psychiatric: appropriate mood/affect, cooperative
[2018-01-08] MEDS: ATIVAN IV PRN (08:48)
--- NOTE | 2018-01-08 09:44 | Event Note ---
Date: 01/08/[address] doll called adeno ca - based on markers - not likely GI - ? cholangio or GB - or lung prostate - more stains being done will order Ct chest
--- NOTE | 2018-01-08 13:01 | Cat Scan Report ---
CT CHEST WITH CONTRAST: HISTORY: Liver mass, lung primary. COMPARISON: none. TECHNIQUE: Helical CT in 1.25mm intervals following IV contrast. Sagittal and coronal reformatted images. FINDINGS: Thyroid gland: Normal. Tracheobronchial tree: Normal. Esophagus: Normal. Heart: Normal. Pericardium: Normal. Mediastinum: Small hiatal hernia is noted. Lung [place]: Normal. Pleural Spaces: Normal. Musculoskeletal: Normal. IMPRESSION: Small hiatal hernia, otherwise, unremarkable CT chest with contrast.
[2018-01-08] MEDS: NACL 0.9% 1000 ML 1,000 ML IV SCH (13:25)
[2018-01-08] MEDS ORDERED: WATER FOR IRRIG STERILE IR ONE (13:29)
[2018-01-08] MEDS ORDERED: WATER FOR IRRIG STERILE ONE (13:29)
--- NOTE | 2018-01-08 13:48 | Anesthesia Consultation ---
Anesthesia Consult and Med Hx Date of service: 01/08/18 - Airway Anesthetic Teeth Evaluation: Good ROM Head & Neck: Adequate Mental/Hyoid Distance: Adequate Mallampati Class: Class III Intubation Access Assessment: Possibly Difficult (bearded) - Pulmonary Exam CTA: Yes - Cardiac Exam Cardiac Exam: RRR - Pre-Operative Health Status ASA Pre-Surgery Classification: ASA3 Proposed Anesthetic Plan: MAC - Pulmonary Hx Smoking: Yes (3 PPD; quit >10yrs ago) Hx Asthma: No Hx Respiratory Symptoms: No SOB: No COPD: No - Cardiovascular System Hx Hypertension: Yes Hx Coronary Artery Disease: Yes Hx Heart Attack/AMI: No Hx Percutaneous Transluminal Coronary Angioplasty (PTCA): Yes (2014 and 2016; on plavix (held x2days)) Hx Cardia Arrhythmia: Yes (hx a-fib s/p ablation 2014; per patient SR ever since ) - Central Nervous System Hx Seizures: No CVA: Yes (2014; no residual weakness) - Endocrine Hx Renal Disease: No Hx Liver Disease: Yes (liver mass on CT scan. Bx results pending) Hx Insulin Dependent Diabetes: No Hx Hypothyroidism: Yes - Hematic Hx Anemia: No - Other Systems Hx Alcohol Use: Yes (Hx EtOH abuse; quit 12yrs ago) Hx Obesity: Yes
--- NOTE | 2018-01-08 13:49 | Anesthesia Day of Surgery ---
Anesthesia Day of Surgery - Day of Surgery Patient Examined: Yes Patient H&P Reviewed: Yes Patient is NPO: Yes
[2018-01-08] MEDS ORDERED: DIPRIVAN 10 MG/ML IV ONE ×2 (14:30)
[2018-01-08] MEDS ORDERED: VERSED ONE (14:30)
[2018-01-08] MEDS ORDERED: XYLOCAINE 1% 20 mL ONE (14:31)
--- NOTE | 2018-01-08 15:02 | Post Operative Note ---
Pre-op diagnosis: Liver mass Post-op diagnosis: other (Tics, hiatal hernia) Findings: 1. Medium hiatal hernia 2. Sigmoid diverticulosis 3. Grade I Int Hemorrhoids 4. No source of liver mass noted Procedure: EGD and Colonoscopy Anesthesia: MAC Surgeon: ANKITA MACHADO Estimated blood loss: none Pathology: none Specimen disposition: other (N/A) Condition: stable Disposition: floor (Recs: 1. Regular diet. 2. PET scan via Oncology. 3. Will sign off; please call if needed.)
--- NOTE | 2018-01-08 18:11 | Progress Note ---
Assessment and Plan Assessment and plan: 47 year old male with past medical history significant for CAD, hypertension, obesity presented to the ED with complaints of nausea or vomiting and abdominal pain. Patient had been drinking heavily and quit 12 years ago. No fever, weight loss, jaundice. CT abdomen and pelvis showed right lobe liver mass suspicious for malignancy Right lobe liver mass - Suspicious for malignancy - Hematology oncology was consulted and ordered malignancy markers which were negative - CT-guided biopsy of the right hepatic lobe was done By interventional radiology AWAITING PATHOLOGY - I have discussed with hematology oncology and he wants to keep the patient is inpatient because of the continued nausea and vomiting despite Zofran, CAD, hypertension, hypothyroidism - Stable continue all medications Obesity -WEGHT LOSS ADVISED ETOH ABUSE -[facility] PROTOCOL Chronic Pain syndrome -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 possible opioid contributing to persistent nausea and vomiting History Interval history: patient seen and examine detoxy, still with shortness of breath Hospitalist Physical - Physical exam Narrative exam: Not in cardiopulmonary distress. The patient is obese. Vital signs as documented. Head exam is unremarkable. No scleral icterus . Neck is without jugular venous distension, thyromegaly, or carotid bruits. Lungs are clear to auscultation. Cardiac exam reveals regular rate and Rhythm. First and second heart sounds normal. No murmurs, rubs or gallops. Abdominal exam reveals normal bowel sounds, no masses, no organomegaly and no aortic enlargement. Extremities are nonedematous and both femoral and pedal pulses are normal. 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 No focal weakness. - Constitutional Vitals: Temp Pulse Resp BP Pulse Ox 98.1 F 85 13 120/83 95 01/08/18 15:01 01/08/18 15:31 01/08/18 15:31 01/08/18 15:31 01/08/18 15:31 General appearance: Present: no acute distress Results - Labs CBC & Chem 7: 01/01/18 05:13 01/02/18 06:10 Labs: Laboratory Last Values WBC 7.2 K/mm3 (4.5-11.0) 01/01/18 05:13 RBC 4.90 M/mm3 (3.65-5.03) 01/01/18 05:13 Hgb 14.4 gm/dl (11.8-15.2) 01/01/18 05:13 Hct 42.3 % (35.5-45.6) 01/01/18 05:13 MCV 86 fl (84-94) 01/01/18 05:13 MCH 29 pg (28-32) 01/01/18 05:13 MCHC 34 % (32-34) 01/01/18 05:13 RDW 14.2 % (13.2-15.2) 01/01/18 05:13 Plt Count 217 K/mm3 (140-440) 01/01/18 05:13 Lymph % (Auto) 20.0 % (13.4-35.0) 01/01/18 05:13 [place] % (Auto) 8.4 % (0.0-7.3) H 01/01/18 05:13 Eos % (Auto) 3.2 % (0.0-4.3) 01/01/18 05:13 Baso % (Auto) 0.5 % (0.0-1.8) 01/01/18 05:13 Lymph # 1.4 K/mm3 (1.2-5.4) 01/01/18 05:13 [place] # 0.6 K/mm3 (0.0-0.8) 01/01/18 05:13 Eos # 0.2 K/mm3 (0.0-0.4) 01/01/18 05:13 Baso # 0.0 K/mm3 (0.0-0.1) 01/01/18 05:13 Seg Neutrophils % 67.9 % (40.0-70.0) 01/01/18 05:13 Seg Neutrophils # 4.9 K/mm3 (1.8-7.7) 01/01/18 05:13 PT 13.4 Sec. (12.2-14.9) 12/31/17 21:11 INR 0.97 (0.87-1.13) 12/31/17 21:11 APTT 27.3 Sec. (24.2-36.6) 12/31/17 21:11 Sodium 140 mmol/L (137-145) 01/02/18 06:10 Potassium 4.3 mmol/L (3.6-5.0) 01/02/18 06:10 Chloride 102.8 mmol/L (98-107) 01/02/18 06:10 Carbon Dioxide 21 mmol/L (22-30) L 01/02/18 06:10 Anion Gap 21 mmol/L 01/02/18 06:10 BUN 10 mg/dL (9-20) 01/02/18 06:10 Creatinine 0.9 mg/dL (0.8-1.5) 01/02/18 06:10 Estimated GFR > 60 ml/min 01/02/18 06:10 BUN/Creatinine Ratio 11 % 01/02/18 06:10 Glucose 102 mg/dL (75-100) H 01/02/18 06:10 Calcium 9.0 mg/dL (8.4-10.2) 01/02/18 06:10 Total Bilirubin 0.40 mg/dL (0.1-1.2) 01/02/18 06:10 Direct Bilirubin < 0.2 mg/dL (0-0.2) 01/01/18 06:54 Indirect Bilirubin 0.2 mg/dL 01/01/18 06:54 AST 28 units/L (5-40) 01/02/18 06:10 ALT 52 units/L (7-56) 01/02/18 06:10 Alkaline Phosphatase 159 units/L (35-129) H 01/02/18 06:10 Total Creatine Kinase 147 units/L (55-170) 01/01/18 05:13 CK-MB (CK-2) 1.9 ng/mL (0.0-4.0) 01/01/18 05:13 CK-MB (CK-2) Rel Index 1.2 (0-4) 01/01/18 05:13 Troponin T < 0.010 ng/mL (0.00-0.029) 01/01/18 05:13 Total Protein 6.9 g/dL (6.3-8.2) 01/02/18 06:10 Albumin 4.2 g/dL (3.9-5) 01/02/18 06:10 Albumin/Globulin Ratio 1.6 % 01/02/18 06:10 Lipase 52 units/L (13-60) 12/31/17 21:11 Tumor Marker AFP See scanned result 01/01/18 14:54 Carcinoembryonic Ag See scanned result 01/01/18 14:47 CA 19-9 Antigen 4 U/mL (<34) 01/01/18 14:47 Prostate Specific Ag 0.90 ng/mL (0.00-4.00) 01/01/18 14:53 HCG, Quant < 2 mIU/mL (0-1) H 01/01/18 14:53 Urine Color Yellow (Yellow) 12/31/17 21:50 Urine Turbidity Clear (Clear) 12/31/17 21:50 Urine pH 6.0 (5.0-7.0) 12/31/17 21:50 Ur Specific [place] > 1.030 (1.003-1.030) H 12/31/17 21:50 Urine Protein <15 mg/dl mg/dL (Negative) 12/31/17 21:50 Urine Glucose (UA) Neg mg/dL (Negative) 12/31/17 21:50 Urine Ketones Neg mg/dL (Negative) 12/31/17 21:50 Urine Blood Neg (Negative) 12/31/17 21:50 Urine Nitrite Neg (Negative) 12/31/17 21:50 Urine Bilirubin Neg (Negative) 12/31/17 21:50 Urine Urobilinogen < 2.0 mg/dL (<2.0) 12/31/17 21:50 Ur Leukocyte Esterase Neg (Negative) 12/31/17 21:50 Urine WBC (Auto) 3.0 /HPF (0.0-6.0) 12/31/17 21:50 Urine RBC (Auto) 1.0 /HPF (0.0-6.0) 12/31/17 21:50 Urine Mucus Few /HPF 12/31/17 21:50 Hep Bs Antigen Non-reactive (Negative) 01/07/18 05:50 Hep B Core IgM Ab Non-reactive (NonReactive) 01/07/18 05:50 Hepatitis C Antibody Non-reactive (NonReactive) 01/07/18 05:50
[2018-01-08] MEDS: NEURONTIN PO SCH ×2 (18:13→21:23)
[2018-01-08] MEDS: CARDIZEM CD PO SCH (18:13)
[2018-01-08] MEDS: COLACE PO SCH ×2 (18:15→21:24)
[2018-01-08] MEDS: SINGULAIR PO SCH (18:15)
[2018-01-08] MEDS: PROTONIX PO SCH (18:15)
[2018-01-08] MEDS: CYMBALTA PO SCH (18:15)
[2018-01-08] MEDS: SOMA PO SCH ×3 (18:16→21:25)
--- NOTE | 2018-01-08 19:36 | Operative Report ---
PROCEDURE PERFORMED: Esophagogastroduodenoscopy as well as colonoscopy. PREOPERATIVE DIAGNOSES: Solitary liver cancer of unknown primary. POSTOPERATIVE DIAGNOSES: Hiatal hernia, diverticulosis, hemorrhoids, no primary source of tumor found. ENDOSCOPIST: Dennis Joe MD INSTRUMENT: TruQC video endoscope. MEDICATIONS: MAC anesthesia by Anesthesia Services. COMPLICATIONS: No apparent complications. ESTIMATED BLOOD LOSS: None. SPECIMENS: None. IMPLANTS: None. ASSISTANTS: None. CONDITION AT COMPLETION: Stable. TECHNIQUE: The patient was informed of the risks and benefits of the procedure. He signed informed consent to proceed. He was placed in the left lateral decubitus position. The above sedative medications were given. His vital signs remained stable throughout the procedure. The instrument was advanced from the mouth to the second portion of the duodenum under direct visualization. At that point, the bowel was insufflated and the endoscope was slowly withdrawn. The bed was then rotated and the colonoscope was advanced from the anus to the cecum under direct visualization. The cecum was identified by the appendiceal orifice and the ileocecal valve. The bowel was then insufflated and the endoscope was slowly withdrawn. The quality of preparation was good. FINDINGS: 1. Medium-sized hiatal hernia. 2. Sigmoid diverticulosis, moderate. 3. Grade 1 internal hemorrhoids. 4. Otherwise, normal upper and lower endoscopy. 5. No primary source of liver cancer was noted. RECOMMENDATIONS: 1. Regular diet. 2. PET scan via Oncology. 3. We will sign off. Please call us if needed. JOB# [id number] JONO/NTS
[2018-01-08] MEDS: ROXICODONE PO PRN (21:24)
[2018-01-08] MEDS: SODIUM CHLORIDE FLUSH SYRINGE 10 ML IV SCH ×2 (21:25→21:28)
[2018-01-08] MEDS: SYNTHROID PO SCH (21:27)
[2018-01-08] MEDS: LOVENOX SUB-Q SCH (21:28)
[2018-01-09] MEDS: ROXICODONE PO PRN ×2 (04:30→13:59)
[2018-01-09] MEDS: SYNTHROID PO SCH ×2 (04:31→05:15)
[2018-01-09] MEDS: ZOFRAN IV PRN (08:48)
[2018-01-09] MEDS: DILAUDID IV PRN ×3 (08:49→22:54)
[2018-01-09] MEDS ORDERED: VALIUM IV ONE (10:02)
[2018-01-09] MEDS: PROTONIX PO SCH (10:51)
[2018-01-09] MEDS: CYMBALTA PO SCH (10:51)
[2018-01-09] MEDS: SOMA PO SCH ×4 (10:51→22:00)
[2018-01-09] MEDS: NEURONTIN PO SCH ×3 (10:51→21:59)
[2018-01-09] MEDS: LOVENOX SUB-Q SCH (10:52)
[2018-01-09] MEDS: SINGULAIR PO SCH (10:52)
[2018-01-09] MEDS: COLACE PO SCH ×2 (10:52→22:00)
[2018-01-09] MEDS: CARDIZEM CD PO SCH (10:53)
[2018-01-09] MEDS: SODIUM CHLORIDE FLUSH SYRINGE 10 ML IV SCH ×2 (10:57→22:00)
--- NOTE | 2018-01-09 12:01 | Progress Note ---
Assessment and Plan Assessment and plan: 47 year old male with past medical history significant for CAD, hypertension, obesity presented to the ED with complaints of nausea or vomiting and abdominal pain. Patient had been drinking heavily and quit 12 years ago. No fever, weight loss, jaundice. CT abdomen and pelvis showed right lobe liver mass suspicious for malignancy Right lobe liver mass - Suspicious for malignancy - Hematology oncology was consulted and ordered malignancy markers which were negative - CT-guided biopsy of the right hepatic lobe was done By interventional radiology AWAITING PATHOLOGY FINAL REPORT. PRELIM LEANING TOWARDS ADENOCARNIOMA. 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 possible opioid contributing to persistent nausea and vomiting History Interval history: no new complaints, still with persistent nausea and vomiting. abdominal pain persist but improving. Hospitalist Physical - Physical exam Narrative exam: Not in cardiopulmonary distress. The patient is obese. Vital signs as documented. Head exam is unremarkable. No scleral icterus . Neck is without jugular venous distension, thyromegaly, or carotid bruits. Lungs are clear to auscultation. Cardiac exam reveals regular rate and Rhythm. First and second heart sounds normal. No murmurs, rubs or gallops. Abdominal exam reveals normal bowel sounds, no masses, no organomegaly and no aortic enlargement. Extremities are nonedematous and both femoral and pedal pulses are normal. 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 No focal weakness. - Constitutional Vitals: Temp Pulse Resp BP Pulse Ox 98.2 F 87 18 141/98 97 01/09/18 08:59 01/09/18 08:59 01/09/18 08:59 01/09/18 08:59 01/09/18 08:59 General appearance: Present: no acute distress Results - Labs CBC & Chem 7: 01/01/18 05:13 01/02/18 06:10 Labs: Laboratory Last Values WBC 7.2 K/mm3 (4.5-11.0) 01/01/18 05:13 RBC 4.90 M/mm3 (3.65-5.03) 01/01/18 05:13 Hgb 14.4 gm/dl (11.8-15.2) 01/01/18 05:13 Hct 42.3 % (35.5-45.6) 01/01/18 05:13 MCV 86 fl (84-94) 01/01/18 05:13 MCH 29 pg (28-32) 01/01/18 05:13 MCHC 34 % (32-34) 01/01/18 05:13 RDW 14.2 % (13.2-15.2) 01/01/18 05:13 Plt Count 217 K/mm3 (140-440) 01/01/18 05:13 Lymph % (Auto) 20.0 % (13.4-35.0) 01/01/18 05:13 [place] % (Auto) 8.4 % (0.0-7.3) H 01/01/18 05:13 Eos % (Auto) 3.2 % (0.0-4.3) 01/01/18 05:13 Baso % (Auto) 0.5 % (0.0-1.8) 01/01/18 05:13 Lymph # 1.4 K/mm3 (1.2-5.4) 01/01/18 05:13 [place] # 0.6 K/mm3 (0.0-0.8) 01/01/18 05:13 Eos # 0.2 K/mm3 (0.0-0.4) 01/01/18 05:13 Baso # 0.0 K/mm3 (0.0-0.1) 01/01/18 05:13 Seg Neutrophils % 67.9 % (40.0-70.0) 01/01/18 05:13 Seg Neutrophils # 4.9 K/mm3 (1.8-7.7) 01/01/18 05:13 PT 13.4 Sec. (12.2-14.9) 12/31/17 21:11 INR 0.97 (0.87-1.13) 12/31/17 21:11 APTT 27.3 Sec. (24.2-36.6) 12/31/17 21:11 Sodium 140 mmol/L (137-145) 01/02/18 06:10 Potassium 4.3 mmol/L (3.6-5.0) 01/02/18 06:10 Chloride 102.8 mmol/L (98-107) 01/02/18 06:10 Carbon Dioxide 21 mmol/L (22-30) L 01/02/18 06:10 Anion Gap 21 mmol/L 01/02/18 06:10 BUN 10 mg/dL (9-20) 01/02/18 06:10 Creatinine 0.9 mg/dL (0.8-1.5) 01/02/18 06:10 Estimated GFR > 60 ml/min 01/02/18 06:10 BUN/Creatinine Ratio 11 % 01/02/18 06:10 Glucose 102 mg/dL (75-100) H 01/02/18 06:10 Calcium 9.0 mg/dL (8.4-10.2) 01/02/18 06:10 Total Bilirubin 0.40 mg/dL (0.1-1.2) 01/02/18 06:10 Direct Bilirubin < 0.2 mg/dL (0-0.2) 01/01/18 06:54 Indirect Bilirubin 0.2 mg/dL 01/01/18 06:54 AST 28 units/L (5-40) 01/02/18 06:10 ALT 52 units/L (7-56) 01/02/18 06:10 Alkaline Phosphatase 159 units/L (35-129) H 01/02/18 06:10 Total Creatine Kinase 147 units/L (55-170) 01/01/18 05:13 CK-MB (CK-2) 1.9 ng/mL (0.0-4.0) 01/01/18 05:13 CK-MB (CK-2) Rel Index 1.2 (0-4) 01/01/18 05:13 Troponin T < 0.010 ng/mL (0.00-0.029) 01/01/18 05:13 Total Protein 6.9 g/dL (6.3-8.2) 01/02/18 06:10 Albumin 4.2 g/dL (3.9-5) 01/02/18 06:10 Albumin/Globulin Ratio 1.6 % 01/02/18 06:10 Lipase 52 units/L (13-60) 12/31/17 21:11 Tumor Marker AFP See scanned result 01/01/18 14:54 Carcinoembryonic Ag See scanned result 01/01/18 14:47 CA 19-9 Antigen 4 U/mL (<34) 01/01/18 14:47 Prostate Specific Ag 0.90 ng/mL (0.00-4.00) 01/01/18 14:53 HCG, Quant < 2 mIU/mL (0-1) H 01/01/18 14:53 Urine Color Yellow (Yellow) 12/31/17 21:50 Urine Turbidity Clear (Clear) 12/31/17 21:50 Urine pH 6.0 (5.0-7.0) 12/31/17 21:50 Ur Specific [place] > 1.030 (1.003-1.030) H 12/31/17 21:50 Urine Protein <15 mg/dl mg/dL (Negative) 12/31/17 21:50 Urine Glucose (UA) Neg mg/dL (Negative) 12/31/17 21:50 Urine Ketones Neg mg/dL (Negative) 12/31/17 21:50 Urine Blood Neg (Negative) 12/31/17 21:50 Urine Nitrite Neg (Negative) 12/31/17 21:50 Urine Bilirubin Neg (Negative) 12/31/17 21:50 Urine Urobilinogen < 2.0 mg/dL (<2.0) 12/31/17 21:50 Ur Leukocyte Esterase Neg (Negative) 12/31/17 21:50 Urine WBC (Auto) 3.0 /HPF (0.0-6.0) 12/31/17 21:50 Urine RBC (Auto) 1.0 /HPF (0.0-6.0) 12/31/17 21:50 Urine Mucus Few /HPF 12/31/17 21:50 Hep Bs Antigen Non-reactive (Negative) 01/07/18 05:50 Hep B Core IgM Ab Non-reactive (NonReactive) 01/07/18 05:50 Hepatitis C Antibody Non-reactive (NonReactive) 01/07/18 05:50
[2018-01-09] MEDS: ATIVAN IV PRN ×2 (15:38→22:54)
--- NOTE | 2018-01-09 22:46 | Hem/Onc Progress Note ---
Assessment and Plan 1. Radiology - Enhancing large right lobe of liver lesion, s/p bx 01/04 - mets - primary ? 2. IR - liver biopsy - 01/04. 3. History of abnormal LFTs. 4. History of vomiting and diarrhea. - s/p Endoscopy 01/08 5. History of hypertension. 6. History of hypothyroidism. 7. History of coronary artery disease. 8. tumor markers PSA and hcg normal - others ordered - follow the patient. 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 s/p GI endoscopy - no lesion path called me on 01/08 - not primary liver - adeno - mets - Cholangio a possibility. Ct chest neg MRCP eval ongoing Objective - Constitutional Vitals: Last Vital Signs Temp 98.1 F 01/09/18 19:52 Pulse 82 01/09/18 19:52 Resp 18 01/09/18 19:52 BP 142/95 01/09/18 19:52 Pulse Ox 98 01/09/18 19:52 Pain Intensity (0-10): 2/10 General appearance: mild distress Performance status: 2- selfcare, ambulatory - EENT Eyes: PERRL ENT: clear oral mucosa Lymph node exam: negative cervical, negative supraclavicular - Neck Neck: supple - Respiratory Respiratory effort: Positive: normal Respiratory: bilateral: CTA (anteriorly) - Cardiovascular Heart Sounds: Present: S1 & S2 Extremities: No edema - Gastrointestinal General gastrointestinal: Present: soft, tender (RUQ - no guarding) Rectal Exam: deferred - Genitourinary Male genitourinary: Present: deferred - Integumentary Integumentary: warm - Musculoskeletal Musculoskeletal: strength equal bilaterally - Neurologic Neurologic: moves all extremities - Psychiatric Psychiatric: appropriate mood/affect, cooperative
[2018-01-10] MEDS: DILAUDID IV PRN ×4 (04:49→21:16)
[2018-01-10] MEDS: SYNTHROID PO SCH ×2 (04:49→06:19)
[2018-01-10] MEDS: ZOFRAN IV PRN (10:49)
[2018-01-10] MEDS: CARDIZEM CD PO SCH (10:50)
[2018-01-10] MEDS: SINGULAIR PO SCH (10:51)
[2018-01-10] MEDS: COLACE PO SCH ×2 (10:51→21:15)
[2018-01-10] MEDS: PROTONIX PO SCH (10:51)
[2018-01-10] MEDS: SOMA PO SCH ×4 (10:51→21:15)
[2018-01-10] MEDS: CYMBALTA PO SCH (10:51)
--- NOTE | 2018-01-10 11:09 | Progress Note ---
Assessment and Plan - Patient Problems (1) Abdominal pain Current Visit: Yes Status: Acute Qualifiers: Abdominal location: generalized Qualified Code(s): R10.84 - Generalized abdominal pain Plan to address problem: In part due to the bx procedure. (2) Liver mass Current Visit: Yes Status: Acute Plan to address problem: same as bellow. (3) Atrial fibrillation, rapid Current Visit: No Status: Acute Plan to address problem: follow you. (4) Liver metastases Current Visit: Yes Status: Acute Plan to address problem: See notes, and rec so far. Subjective Date of service: 01/10/18 Principal diagnosis: liver lesion - mets Interval history: I am covering DR CHRISTIANSON/PM group.Patient resting in bed, records/notes reviewed, Tumor makers , still pending some results. This may board turner to be Unknown primary, and may have to be treated specific for that.Will await complete/final w/up. Objective - Constitutional Vitals: Vital Signs - 12hr 01/10/18 01/10/18 01/10/18 00:35 04:24 10:49 Temperature 97.5 F L 98.3 F Pulse Rate 93 H 84 Respiratory 18 19 20 Rate Blood Pressure 141/86 127/85 [Right] O2 Sat by Pulse 95 95 Oximetry 01/10/18 01/10/18 10:50 11:01 Temperature 97.9 F Pulse Rate 84 107 H Respiratory 20 Rate Blood Pressure 130/100 [Right] O2 Sat by Pulse 97 Oximetry General appearance: Present: no acute distress - EENT Eyes: PERRL, EOM intact ENT: hearing intact, clear oral mucosa Ears: bilateral: normal - Neck Neck: supple, normal ROM - Respiratory Respiratory effort: normal Respiratory: bilateral: CTA - Breasts Breasts: deferred - Cardiovascular Rhythm: regular Heart Sounds: Present: S1 & S2. Absent: gallop, rub Extremities: pulses intact, No edema, normal color, Full ROM - Gastrointestinal General gastrointestinal: Present: soft, non-tender, non-distended, normal bowel sounds Rectal Exam: deferred - Genitourinary Male genitourinary: deferred - Integumentary Integumentary: clear, warm, dry - Musculoskeletal Musculoskeletal: 1, strength equal bilaterally - Neurologic Neurologic: moves all extremities - Psychiatric Psychiatric: memory intact, appropriate mood/affect, intact judgment & insight - Labs CBC & Chem 7: 01/01/18 05:13 01/02/18 06:10
[2018-01-10] MEDS: LOVENOX SUB-Q SCH (11:23)
[2018-01-10] MEDS: NEURONTIN PO SCH ×3 (11:23→20:45)
[2018-01-10] MEDS: SODIUM CHLORIDE FLUSH SYRINGE 10 ML IV SCH ×2 (11:27→21:17)
[2018-01-10] MEDS: ATIVAN IV PRN ×2 (13:18→21:15)
--- NOTE | 2018-01-10 16:08 | Progress Note ---
Assessment and Plan Assessment and plan: 47 year old male with past medical history significant for CAD, hypertension, obesity presented to the ED with complaints of nausea or vomiting and abdominal pain. Patient had been drinking heavily and quit 12 years ago. No fever, weight loss, jaundice. CT abdomen and pelvis showed right lobe liver mass suspicious for malignancy Right lobe liver mass - Suspicious for malignancy - Hematology oncology was consulted and ordered malignancy markers which were negative - CT-guided biopsy of the right hepatic lobe was done By interventional radiology AWAITING PATHOLOGY FINAL REPORT. PRELIM LEANING TOWARDS ADENOCARNIOMA. Discussed with patient - I have discussed with hematology oncology and he wants to keep the patient is inpatient because of the continued nausea and vomiting despite Zofran, - MRI ABDOMEN PENDING, - OUTPATIENT PET SCAN CAD, hypertension, hypothyroidism - Stable continue all medications Obesity -WEGHT LOSS ADVISED ETOH ABUSE -[facility] PROTOCOL Chronic Pain syndrome -continue electrotyper helper pump Intractable nausea and vomiting -zofran, GI evaluation - EGD with possible colonscopy planned- today DVT prophylaxis - On Lovenox Disposition -Per Hematology oncology Addressed pain control with the patient at this time,. possible opioid contributing to persistent nausea and vomiting History Interval history: no new complaints, still with persistent nausea and vomiting. abdominal pain persist but improving. Hospitalist Physical - Physical exam Narrative exam: Not in cardiopulmonary distress. The patient is obese. Vital signs as documented. Head exam is unremarkable. No scleral icterus . Neck is without jugular venous distension, thyromegaly, or carotid bruits. Lungs are clear to auscultation. Cardiac exam reveals regular rate and Rhythm. First and second heart sounds normal. No murmurs, rubs or gallops. Abdominal exam reveals normal bowel sounds, no masses, no organomegaly and no aortic enlargement. Extremities are nonedematous and both femoral and pedal pulses are normal. CRAPS MANAGER: Alert and oriented 3. No focal weakness. - Constitutional Vitals: Temp Pulse Resp BP Pulse Ox 97.9 F 107 H 20 130/100 97 01/10/18 11:01 01/10/18 11:01 01/10/18 15:46 01/10/18 11:01 01/10/18 11:01 General appearance: Present: no acute distress Results - Labs CBC & Chem 7: 01/01/18 05:13 01/02/18 06:10 Labs: Laboratory Last Values WBC 7.2 K/mm3 (4.5-11.0) 01/01/18 05:13 RBC 4.90 M/mm3 (3.65-5.03) 01/01/18 05:13 Hgb 14.4 gm/dl (11.8-15.2) 01/01/18 05:13 Hct 42.3 % (35.5-45.6) 01/01/18 05:13 MCV 86 fl (84-94) 01/01/18 05:13 MCH 29 pg (28-32) 01/01/18 05:13 MCHC 34 % (32-34) 01/01/18 05:13 RDW 14.2 % (13.2-15.2) 01/01/18 05:13 Plt Count 217 K/mm3 (140-440) 01/01/18 05:13 Lymph % (Auto) 20.0 % (13.4-35.0) 01/01/18 05:13 [place] % (Auto) 8.4 % (0.0-7.3) H 01/01/18 05:13 Eos % (Auto) 3.2 % (0.0-4.3) 01/01/18 05:13 Baso % (Auto) 0.5 % (0.0-1.8) 01/01/18 05:13 Lymph # 1.4 K/mm3 (1.2-5.4) 01/01/18 05:13 [place] # 0.6 K/mm3 (0.0-0.8) 01/01/18 05:13 Eos # 0.2 K/mm3 (0.0-0.4) 01/01/18 05:13 Baso # 0.0 K/mm3 (0.0-0.1) 01/01/18 05:13 Seg Neutrophils % 67.9 % (40.0-70.0) 01/01/18 05:13 Seg Neutrophils # 4.9 K/mm3 (1.8-7.7) 01/01/18 05:13 PT 13.4 Sec. (12.2-14.9) 12/31/17 21:11 INR 0.97 (0.87-1.13) 12/31/17 21:11 APTT 27.3 Sec. (24.2-36.6) 12/31/17 21:11 Sodium 140 mmol/L (137-145) 01/02/18 06:10 Potassium 4.3 mmol/L (3.6-5.0) 01/02/18 06:10 Chloride 102.8 mmol/L (98-107) 01/02/18 06:10 Carbon Dioxide 21 mmol/L (22-30) L 01/02/18 06:10 Anion Gap 21 mmol/L 01/02/18 06:10 BUN 10 mg/dL (9-20) 01/02/18 06:10 Creatinine 0.9 mg/dL (0.8-1.5) 01/02/18 06:10 Estimated GFR > 60 ml/min 01/02/18 06:10 BUN/Creatinine Ratio 11 % 01/02/18 06:10 Glucose 102 mg/dL (75-100) H 01/02/18 06:10 Calcium 9.0 mg/dL (8.4-10.2) 01/02/18 06:10 Total Bilirubin 0.40 mg/dL (0.1-1.2) 01/02/18 06:10 Direct Bilirubin < 0.2 mg/dL (0-0.2) 01/01/18 06:54 Indirect Bilirubin 0.2 mg/dL 01/01/18 06:54 AST 28 units/L (5-40) 01/02/18 06:10 ALT 52 units/L (7-56) 01/02/18 06:10 Alkaline Phosphatase 159 units/L (35-129) H 01/02/18 06:10 Total Creatine Kinase 147 units/L (55-170) 01/01/18 05:13 CK-MB (CK-2) 1.9 ng/mL (0.0-4.0) 01/01/18 05:13 CK-MB (CK-2) Rel Index 1.2 (0-4) 01/01/18 05:13 Troponin T < 0.010 ng/mL (0.00-0.029) 01/01/18 05:13 Total Protein 6.9 g/dL (6.3-8.2) 01/02/18 06:10 Albumin 4.2 g/dL (3.9-5) 01/02/18 06:10 Albumin/Globulin Ratio 1.6 % 01/02/18 06:10 Lipase 52 units/L (13-60) 12/31/17 21:11 Tumor Marker AFP See scanned result 01/01/18 14:54 Carcinoembryonic Ag See scanned result 01/01/18 14:47 CA 19-9 Antigen 4 U/mL (<34) 01/01/18 14:47 Prostate Specific Ag 0.90 ng/mL (0.00-4.00) 01/01/18 14:53 HCG, Quant < 2 mIU/mL (0-1) H 01/01/18 14:53 Urine Color Yellow (Yellow) 12/31/17 21:50 Urine Turbidity Clear (Clear) 12/31/17 21:50 Urine pH 6.0 (5.0-7.0) 12/31/17 21:50 Ur Specific Paicines > 1.030 (1.003-1.030) H 12/31/17 21:50 Urine Protein <15 mg/dl mg/dL (Negative) 12/31/17 21:50 Urine Glucose (UA) Neg mg/dL (Negative) 12/31/17 21:50 Urine Ketones Neg mg/dL (Negative) 12/31/17 21:50 Urine Blood Neg (Negative) 12/31/17 21:50 Urine Nitrite Neg (Negative) 12/31/17 21:50 Urine Bilirubin Neg (Negative) 12/31/17 21:50 Urine Urobilinogen < 2.0 mg/dL (<2.0) 12/31/17 21:50 Ur Leukocyte Esterase Neg (Negative) 12/31/17 21:50 Urine WBC (Auto) 3.0 /HPF (0.0-6.0) 12/31/17 21:50 Urine RBC (Auto) 1.0 /HPF (0.0-6.0) 12/31/17 21:50 Urine Mucus Few /HPF 12/31/17 21:50 Hep Bs Antigen Non-reactive (Negative) 01/07/18 05:50 Hep B Core IgM Ab Non-reactive (NonReactive) 01/07/18 05:50 Hepatitis C Antibody Non-reactive (NonReactive) 01/07/18 05:50
[2018-01-11] MEDS: DILAUDID IV PRN ×3 (03:46→11:59)
[2018-01-11] MEDS: SYNTHROID PO SCH (06:01)
[2018-01-11 07:01] LABS: Hematocrit 42.4 % (35.5-45.6); Hemoglobin 14.2 gm/dl (11.8-15.2); Mean Corpuscular HGB Conc 33 % (32-34); Mean Corpuscular Hemoglobin 29 pg (28-32); Mean Corpuscular Volume 86 fl (84-94); Platelet Count 243 K/mm3 (140-440); Red Blood Count 4.92 M/mm3 (3.65-5.03); Red Cell Distribution Width 13.6 % (13.2-15.2)
[2018-01-11 07:18] LABS: Hepatitis A Antibody IgM NonReactive (NonReactive)
[2018-01-11 07:26] LABS: Alanine Aminotransferase 31 units/L (7-56); Albumin 4.1 g/dL (3.9-5); BUN/Creatinine Ratio 9; Blood Urea Nitrogen 8 mg/dL (9-20); Hemolysis Index 6
[2018-01-11] MEDS: PROTONIX PO SCH (09:29)
[2018-01-11] MEDS: NEURONTIN PO SCH ×2 (09:29→14:24)
[2018-01-11] MEDS: SINGULAIR PO SCH (09:29)
[2018-01-11] MEDS: CYMBALTA PO SCH (09:29)
[2018-01-11] MEDS: LOVENOX SUB-Q SCH (09:30)
[2018-01-11] MEDS: SOMA PO SCH ×2 (09:30→14:24)
[2018-01-11] MEDS: CARDIZEM CD PO SCH (09:30)
[2018-01-11] MEDS: COLACE PO SCH (09:30)
[2018-01-11] MEDS: SODIUM CHLORIDE FLUSH SYRINGE 10 ML IV SCH (09:31)
[2018-01-11] MEDS ORDERED: VALIUM PO NR (10:11)
[2018-01-11] MEDS: ATIVAN IV PRN ×2 (10:50→14:43)
[2018-01-11 11:55] VITALS: BP 101/67
--- NOTE | 2018-01-11 12:25 | Discharge Summary ---
Providers - Providers Date of Admission: 12/31/17 23:08 Attending physician: TONIE STRICKLAND MD 12/31/17 23:08 Consult to Physician [CONS] Routine Comment: Consulting Provider: JUSTEN ROBBINS Physician Instructions: Reason For Exam: liver mass 01/01/18 14:02 Consult to Interventional Radiology [CONS] Urgent Consulting Provider: VLAD SOFIA Reason For Exam: liver mass biopsy Notified:: RN 01/05/18 18:24 Consult to Physician [CONS] Routine Comment: Consulting Provider: ABY THAPA Physician Instructions: Reason For Exam: ABDOMINAL PAIN. Interactable nausea and vomiting Primary care physician: PEARL FISHERMAN Hospitalization Reason for admission: INTRACTABLE NAUSEA AND VOMITING Condition: Fair Hospital course: 47 year old male with past medical history significant for CAD, hypertension, obesity presented to the ED with complaints of nausea or vomiting and abdominal pain. Patient had been drinking heavily and quit 12 years ago. No fever, weight loss, jaundice. CT abdomen and pelvis showed right lobe liver mass suspicious for malignancy, during hospitalization the patient was noted to have a liver mass and underwent a biopsy of the right hepatic lobe preliminary results related to adenocarcinoma although primary somnolent this time. Outpatient PET scan as recommended. Patient was also by GI and underwent a colonoscopy AND upper endoscopy with no findings of the primary cancer source. MRIs of the abdomen was ordered. Patient was treated with pain had significant amount of pain requiring multiple other medication included DISTILLERY MANAGER pump which has been discontinued and is not on MS Contin with different medications for nausea wasn't a successful with Ativan and is going to be discharged on Xanax. Other stressors discussion with the patient and family member and need to follow-up with primary care physician and also with the oncologist of choice for them for continued workup. 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 The patient is obese. Vital signs as documented. Head exam is unremarkable. No scleral icterus . Neck is without jugular venous distension, thyromegaly, or carotid bruits. Lungs are clear to auscultation. Cardiac exam reveals regular rate and Rhythm. First and second heart sounds normal. No murmurs, rubs or gallops. Abdominal exam reveals normal bowel sounds, no masses, no organomegaly and no aortic enlargement. Extremities are nonedematous and both femoral and pedal pulses are normal. TON CONTAINER FILLER: Alert and oriented 3. No focal weakness. - Constitutional Vitals: Temp Pulse Resp BP Pulse Ox 94.4 F L 18 L 20 101/67 99 01/11/18 11:53 01/11/18 11:53 01/11/18 11:59 01/11/18 11:53 01/11/18 11:53 Plan Activity: advance as tolerated, fall precautions Diet: regular Special Instructions: record daily BP diary Follow up with: PRIMARY CARE, [Primary Care Provider] - 3-5 Days JILLIAN BOUDREAUX MD [Staff Physician] - 7 Days Prescriptions: ALPRAZolam [Xanax TAB] 0.5 mg PO TID PRN #20 tab PRN Reason: Anxiety Docusate Sodium [Colace CAP] 100 mg PO BID #60 capsule Morphine ER [Ms Contin ER] 15 mg PO Q8HR #30 tablet Ondansetron [Zofran Odt] 4 mg PO Q8H PRN #90 tab.rapdis PRN Reason: Nausea oxyCODONE /ACETAMINOPHEN [Percocet 5/325] 1 tab PO Q6HR PRN #20 tablet PRN Reason: Pain Prochlorperazine [Compazine] 10 mg PO Q6HR #90 tablet
[2018-01-11] MEDS ORDERED: MS CONTIN ER PO SCH (14:00)
--- NOTE | 2018-01-11 18:23 | Magnetic Resonance Report ---
FINAL REPORT EXAM: MR ABDOMEN MRCP HISTORY: METASTATIC LIVER CA TECHNIQUE: Multiplanar multisequence noncontrast MR images of the liver were performed Comparison: CT abdomen and pelvis 01/04/2018 and 12/31/2017 at which time an infiltrative 8.3 x 9 centimeter mass segment 6 in 7 right lobe liver was identified FINDINGS: There is a 9.2 x 7.8 centimeter segment 6 in 7 right lobe liver hypointense lesion with homogeneous enhancement. The exam is motion degraded. Axial T2 source images for MRCP were performed. Normal appearance of the intra and extrahepatic bile ducts. The pancreatic duct is normal. The cystic duct and gallbladder are normal. There is a 3 millimeter left lobe liver intrahepatic choledochal cyst. A right anterior renal cortical 1.7 x 1.5 centimeter cyst is present. IMPRESSION: Normal MRCP. Infiltrative homogeneous enhancing segment 6 in 7 right lobe liver mass which has previously been biopsied displaces the right hepatic vein. No definite thrombus is identified. Motion degraded exam. Right renal cortical cyst.
--- NOTE | 2018-01-11 19:24 | Progress Note ---
Assessment and Plan - Patient Problems (1) Abdominal pain Current Visit: Yes Status: Acute Qualifiers: Abdominal location: generalized Qualified Code(s): R10.84 - Generalized abdominal pain Plan to address problem: In part due to the bx procedure. (2) Liver mass Current Visit: Yes Status: Acute Plan to address problem: same as bellow. (3) Atrial fibrillation, rapid Current Visit: No Status: Acute Plan to address problem: follow you. (4) Liver metastases Current Visit: Yes Status: Acute Plan to address problem: See notes, and rec so far. Subjective Date of service: 01/11/18 Principal diagnosis: liver lesion - mets Interval history: I am covering DR CHRISTIANSON/MIGUEL group.Patient resting in bed, records/notes reviewed, Tumor makers , still pending some results. This may youth officer to be Unknown primary, and may have to be treated specific for that.Will await complete/final w/up. I am covering DR Sandoval. Patient resting in bed, labs/records reviewed. Still no conclusive primary.May follow up with DR RIVERA out patient if stable by you. Objective - Constitutional Vitals: Vital Signs - 12hr 01/11/18 01/11/18 01/11/18 07:46 09:30 11:00 Temperature 98.2 F Pulse Rate 69 69 78 Respiratory 20 Rate Blood Pressure 114/64 114/64 Blood Pressure [Right] O2 Sat by Pulse 93 Oximetry 01/11/18 01/11/18 01/11/18 11:46 11:53 11:59 Temperature 98.1 F 94.4 F L Pulse Rate 18 L Respiratory 20 18 20 Rate Blood Pressure 141/86 Blood Pressure 101/67 [Right] O2 Sat by Pulse 99 Oximetry 01/11/18 14:23 Temperature Pulse Rate Respiratory 16 Rate Blood Pressure Blood Pressure [Right] O2 Sat by Pulse Oximetry General appearance: Present: well-nourished - EENT Eyes: PERRL, EOM intact ENT: hearing intact, clear oral mucosa Ears: bilateral: normal - Neck Neck: supple, normal ROM - Respiratory Respiratory effort: normal Respiratory: bilateral: CTA - Breasts Breasts: deferred - Cardiovascular Rhythm: regular Heart Sounds: Present: S1 & S2. Absent: gallop, rub Extremities: pulses intact, No edema, normal color, Full ROM - Gastrointestinal General gastrointestinal: Present: soft, non-tender, non-distended, normal bowel sounds Rectal Exam: deferred - Genitourinary Male genitourinary: deferred - Integumentary Integumentary: clear, warm, dry - Musculoskeletal Musculoskeletal: 1, strength equal bilaterally - Neurologic Neurologic: moves all extremities - Psychiatric Psychiatric: memory intact, appropriate mood/affect, intact judgment & insight - Labs CBC & Chem 7: 01/11/18 06:32 01/11/18 06:32 Labs: Abnormal lab results 01/11/18 Range/Units 06:32 BUN 8 L (9-20) mg/dL Alkaline Phosphatase 157 H (35-129) units/L
== END 2018-01-11 18:52 | disposition home or self-care (01) | DRG 437 ==
LOC: ED 12:04 → 4A 23:08
PROVIDERS: ADMIT Internal Medicine; ATTEND Internal Medicine
PROC: 0FB13ZX Excision of Right Lobe Liver, Percutaneous Approach, Diagnostic (ICD-10-PCS; principal; 2018-01-04)
PROC: BF251ZZ Computerized Tomography (CT Scan) of Liver using Low Osmolar Contrast (ICD-10-PCS; 2018-01-04)
PROC: 0DJ08ZZ Inspection of Upper Intestinal Tract, Via Natural or Artificial Opening Endoscopic (ICD-10-PCS; 2018-01-08)
PROC: 0DJD8ZZ Inspection of Lower Intestinal Tract, Via Natural or Artificial Opening Endoscopic (ICD-10-PCS; 2018-01-08)
DX: C78.7 Secondary malignant neoplasm of liver and intrahepatic bile duct (principal); I25.10 Atherosclerotic heart disease of native coronary artery without angina pectoris; E78.5 Hyperlipidemia, unspecified; E03.9 Hypothyroidism, unspecified; G89.4 Chronic pain syndrome; F10.10 Alcohol abuse, uncomplicated; Y90.0 Blood alcohol level of less than 20 mg/100 ml; K57.30 Diverticulosis of large intestine without perforation or abscess without bleeding; K44.9 Diaphragmatic hernia without obstruction or gangrene; I48.91 Unspecified atrial fibrillation; E66.9 Obesity, unspecified; R16.0 Hepatomegaly, not elsewhere classified; M10.9 Gout, unspecified; R10.84 Generalized abdominal pain; C80.1 Malignant (primary) neoplasm, unspecified; K64.0 First degree hemorrhoids; I10 Essential (primary) hypertension; Z90.49 Acquired absence of other specified parts of digestive tract; Z82.49 Family history of ischemic heart disease and other diseases of the circulatory system; Z88.2 Allergy status to sulfonamides; Z88.1 Allergy status to other antibiotic agents; Z91.010 Allergy to peanuts; Z79.899 Other long term (current) drug therapy; Z79.1 Long term (current) use of non-steroidal anti-inflammatories (NSAID); Z95.5 Presence of coronary angioplasty implant and graft; Z86.73 Personal history of transient ischemic attack (TIA), and cerebral infarction without residual deficits; Z87.891 Personal history of nicotine dependence; Z68.33 Body mass index [BMI] 33.0-33.9, adult; Z71.41 Alcohol abuse counseling and surveillance of alcoholic; Z71.3 Dietary counseling and surveillance
CPT/HCPCS: 36415; 47000; 71260; 74176; 74177; 74181; 77012; 80048; 80053; 80074; 81001; 82106; 82378; 82550; 82553; 83690; 84153; 84484; 84702; 85025; 85027; 85610; 85730; 86301; 87116; 88172; 88173; 88307; 88333; 88341; 88342; 93005; 93010; 96374; 96375; 96376; A4649; J1170; J1650; J2060; J2250; J2270; J2405; J2704; J3010; J7030; Q9967

== ENCOUNTER 2018-07-22 10:39 | Outpatient (CLI) | payer OTHER ==
[2018-07-22 11:57] LABS: Blood Urea Nitrogen 15 mg/dL (9-20)
--- NOTE | 2018-07-22 15:00 | Cat Scan Report ---
CT scan of chest with IV contrast: History: Intrahepatic ductal carcinoma. Findings: No endobronchial or mediastinal mass. No mediastinal hilar or axillary adenopathy. Small hiatal hiatal hernia. No pleural or pericardial effusion. Normal lung parenchyma. No discrete nodularity or ossification. Faint Ill-defined ground glass opacities left upper lobe. Impression: No mediastinal or hilar mass. Faint ground glass opacity left upper lobe. Probably pneumonia among other causes.
--- NOTE | 2018-07-22 15:07 | Cat Scan Report ---
CT scan of abdomen and pelvis with IV contrast: History: Intrahepatic bile duct carcinoma. Findings: Ill-defined hypoechoic mass right lobe of liver. Measures approximately 8 x 5 cm. No dilatation of intrahepatic ducts. No dilatation of common bile duct. Common bile duct is faintly visualized and at jesús hepatis measures approximately 4 mm in maximum diameter. Normal gallbladder. Normal spleen pancreas and adrenals. Cyst in the right kidney measures 1.6 cm. Normal bladder. No free intraperitoneal fluid or air. No evidence of adenopathy. Normal aorta. Calcifications central prostate. Prostate diameter 4.1 x 3.0 cm. Gaseous colon with stool in colon no evidence of appendicitis or diverticulitis. No bowel distention. Impression: Large liver mass. No intrahepatic or extrahepatic duct dilatation. Calcification prostate. Cyst right kidney.
--- NOTE | 2018-07-22 16:09 | Nuclear Medicine Report ---
BONE SCAN: Bile duct malignancy. After injection of isotope, gamma camera imaging of the bony system was done. There is a normal uptake of isotope throughout the bony structures without areas of significantly increased or decreased uptake with the exception of increased activity in both MP joints of the feet. Normal uptake in the urinary system is seen. IMPRESSION: No evidence of malignancy. Probable degenerative changes explaining uptake in the feet.
--- NOTE | 2018-07-24 19:29 | Magnetic Resonance Report ---
PROCEDURE: MR ABDOMEN WO/W CON HISTORY: LIVER W AND W/O CONTRAST, CHOLANGIOCARCINOMA FINDINGS: MRI of the abdomen was performed using axial T1-weighted gradient echo images in and out of phase, axial T2*gradient echo images, coronal T2*gradient echo images, coronal T1, coronal heavily T 2 weighted MR cholangiogram, axial fat saturated T1-weighted gradient echo images, and axial and bhaskar nal postcontrast T1-weighted gradient echo images obtained following the intravenous administration o f gadolinium-based contrast. Comparison is made to the prior MRI examination of January 11, 2018. These images demonstrate a lesion of the posterior segment right lobe of liver, 7.6 x 6.9 x 7.7 cm, p reviously 8.8 x 7.6 x 9.6 cm on prior MRI of January 11, 2018. This displays peripheral rim enhance ment following injection of intravenous contrast and reportedly represents known cholangiocarcinoma. No new lesion is seen in the liver. The spleen is mildly large at 13.3 x 3.8 x 9.8 cm. The adrenal glands, pancreas, gallbladder are unremarkable. No significant lymphadenopathy is seen in the abdomen. There are bilateral renal cysts. There is a small fat-containing umbilical hernia. The abdominal aorta is normal in size. IMPRESSION: Mass within right lobe of liver, smaller than on prior examination of January 11, 2018 This document is electronically signed by Aldair Anderson MD., July 24 2018 07:27:36 PM ET
== END 2018-07-22 10:40 | disposition home or self-care (01) ==
LOC: NM 10:39
PROVIDERS: ATTEND Internal Medicine Hematology
DX: R16.0 Hepatomegaly, not elsewhere classified (principal); N28.1 Cyst of kidney, acquired; K42.9 Umbilical hernia without obstruction or gangrene; C22.1 Intrahepatic bile duct carcinoma; E78.00 Pure hypercholesterolemia, unspecified; I10 Essential (primary) hypertension; E03.9 Hypothyroidism, unspecified; Z87.891 Personal history of nicotine dependence
CPT/HCPCS: 36415; 71260; 74177; 74183; 78306; 82565; 84520; A9503; A9577; Q9967

== ENCOUNTER 2018-08-17 11:50 | Outpatient (CLI) | payer OTHER ==
--- NOTE | 2018-08-17 13:57 | XRay Report ---
CHEST TWO VIEWS: 08/17/18 12:42 CLINICAL: Cough and fever. COMPARISON: 07/22/18 CT chest FINDINGS: Normal heart and pulmonary vasculature.A 2 cm oval slightly irregular patchy right upper lobe lung opacity. The lungs are otherwise clear. No pleural effusion.The bones and soft tissues are unremarkable. IMPRESSION: Patchy right upper lobe pneumonia.This was not apparent on the CT chest from 3 weeks ago.
== END 2018-08-17 11:51 | disposition home or self-care (01) ==
LOC: SPVIMAG 11:50
PROVIDERS: ATTEND Internal Medicine Hematology
DX: J18.9 Pneumonia, unspecified organism (principal); C22.1 Intrahepatic bile duct carcinoma; E78.00 Pure hypercholesterolemia, unspecified; E78.5 Hyperlipidemia, unspecified; E66.9 Obesity, unspecified
CPT/HCPCS: 71046

== ENCOUNTER 2018-09-23 12:19 | Outpatient (CLI) | payer OTHER ==
--- NOTE | 2018-09-23 17:39 | XRay Report ---
PROCEDURE: XR CHEST ROUTINE 2V TECHNIQUE: PA and lateral chest radiographs were obtained. HISTORY: COUGH COMPARISONS: CXR 09/17/2017. FINDINGS: Heart: Normal. Mediastinum/Vessels: Normal. Lungs/Pleural space: Normal. Bony thorax: No acute osseous abnormality. Devices: Right jugular port catheter terminates in the proximal superior vena cava IMPRESSION: No acute cardiopulmonary process seen. No change. This document is electronically signed by Jenni Garcia MD., September 23 2018 05:38:14 PM ET
== END 2018-09-23 12:20 | disposition home or self-care (01) ==
LOC: SPVIMAG 12:19
PROVIDERS: ATTEND Internal Medicine Hematology
DX: J18.9 Pneumonia, unspecified organism (principal); C22.1 Intrahepatic bile duct carcinoma; I10 Essential (primary) hypertension; E78.00 Pure hypercholesterolemia, unspecified; E66.9 Obesity, unspecified; E03.9 Hypothyroidism, unspecified
CPT/HCPCS: 71046

== ENCOUNTER 2021-12-26 11:44 | Emergency (ER) | payer OTHER ==
[2021-12-26 12:04] VITALS: BP 131/87
[2021-12-26 15:06] LABS: Hematocrit 37.5 % (35.5-45.6); Hemoglobin 12.1 gm/dl (11.8-15.2); Mean Corpuscular HGB Conc 32 % (32-34); Mean Corpuscular Volume 86 fl (84-94); Platelet Count 180 K/mm3 (140-440); Red Blood Count 4.36 M/mm3 (3.65-5.03); Red Cell Distribution Width 15.4 % (13.2-15.2)
[2021-12-26 15:30] LABS: Alanine Aminotransferase 34 units/L (7-56); Albumin 4.6 g/dL (3.9-5); BUN/Creatinine Ratio 16; Blood Urea Nitrogen 13 mg/dL (9-20); Hemolysis Index 20
[2021-12-26 15:58] LABS: Color,Urine Yellow (Yellow); WBC,Urine > 1.0 /HPF (0.0-6.0)
[2021-12-26] MEDS ORDERED: SODIUM CHLORIDE 0.9% 1000 ML 1,000 ML IV ONE (16:58)
[2021-12-26] MEDS ORDERED: KETOROLAC 30 MG/1 ML INJ IV ONE (16:59)
[2021-12-26] MEDS ORDERED: ONDANSETRON 4 MG/2 ML INJ IV ONE (16:59)
--- NOTE | 2021-12-26 17:43 | Cat Scan Report ---
CT ABDOMEN AND PELVIS WITHOUT CONTRAST INDICATION / CLINICAL INFORMATION: flank pain. TECHNIQUE: Axial CT images were obtained through the abdomen and pelvis without IV contrast. All CT scans at this location are performed using CT dose reduction for ALARA by means of automated exposure control. COMPARISON: CT abdomen pelvis with IV contrast 07/22/2018, MRI abdomen 07/22/2018 FINDINGS: LOWER CHEST: Small calcified granuloma within the lingula. Mild right basilar subsegmental atelectasi s. LIVER: There is an ill-defined heterogeneously hypodense mass within the right lobe the liver with sc attered dystrophic calcifications measuring approximately 8.5 x 5.1 cm in axial cross-section (series 2 image 26). The hypodense margins of this mass may be enlarged as compared to prior exam dated 2018, however the lack of IV contrast limits definitive comparison. A new hypodense lesion is seen wi thin the left lobe of the liver measuring 2.6 x 2.5 cm in axial cross-section (series 2 image 27). An additional hypodense lesion is seen within the inferior aspect of the right lobe of the liver measur ing 1.7 x 2.0 cm in axial cross-section (series 2 image 75). Additional ill-defined hypodensities are seen within the dome of the liver as well as the superior aspect of the left lobe of the liver. GALLBLADDER: No significant abnormality. BILE DUCTS: A metallic clip is seen adjacent to the distal common bile duct. PANCREAS: No significant abnormality. SPLEEN: No significant abnormality. ADRENALS: No significant abnormality. RIGHT KIDNEY / URETER: There is a simple cyst within the right kidney. There are 2 mm nonobstructing calculi within the interpolar and inferior pole of the right kidney. No hydronephrosis. LEFT KIDNEY / URETER: 2 mm nonobstructing calculus within the superior pole of the left kidney. STOMACH / SMALL BOWEL: No significant abnormality. COLON: No significant abnormality. APPENDIX: No significant abnormality. PERITONEUM: No free fluid. No free air. No fluid collection. Small fat-containing umbilical hernia. LYMPH NODES: No significant adenopathy. AORTA / ARTERIES: No significant abnormality. IVC / VEINS: No significant abnormality. URINARY BLADDER: No significant abnormality. REPRODUCTIVE ORGANS: No significant abnormality. ADDITIONAL FINDINGS: An 11 mm soft tissue nodule is present within the right gluteal subcutaneous fat , likely representing a sebaceous cyst. SKELETAL SYSTEM: No significant abnormality. IMPRESSION: 1. Multiple ill-defined new and enlarging hypodense lesions throughout the liver in this patient with history of cholangiocarcinoma. This is concerning for progressive malignancy. There are posttreatmen t changes within the dominant mass within segment 7 of the liver, however the hypodense surrounding m argin has increased in size. New hypodense lesions are seen throughout both lobes of the liver. Furth er evaluation with dedicated liver mass contrast-enhanced CT or MRI is recommended. 2. No evidence of extrahepatic spread of malignancy within the abdomen or pelvis. 3. Multiple small nonobstructing calculi bilaterally measuring up to 2 mm. Signer Name: Jorge Gamez MD Signed: 12/26/2021 5:39 PM Workstation Name: [employer]
--- NOTE | 2021-12-26 18:29 | Emergency Department Report ---
ED Abdominal Pain HPI - General Chief Complaint: Abdominal Pain Stated Complaint: KIDNEY, RIGHT SIDE PAIN Time Seen by Provider: 12/26/21 16:46 Source: patient Mode of arrival: Ambulatory Limitations: No Limitations - History of Present Illness Initial Comments: 51-year-old black male with a past medical history of cholangiocarcinoma, CAD with stents, HTN, and hypothyroidism presents to the emergency department for evaluation of 1 day history of right flank pain. He states that pain is associated with nausea and dysuria. He denies fever, active vomiting, dizziness, and diaphoresis. He states that pain is worse is 8 out of 10. MD Complaint: flank pain -: Gradual, days(s) (1) Location: R flank Radiation: none Migration to: no migration Severity scale (0 -10): 8 Quality: aching Consistency: constant Associated Symptoms: nausea, dysuria. denies: vomiting, diarrhea, fever, chills, hematemesis, hematochezia, melena, hematuria, anorexia, syncope - Related Data Home Medications Medication Instructions Recorded Confirmed Last Taken Gabapentin [Neurontin] 800 mg PO TID 09/17/17 12/31/17 09/17/17 10:00 carisoprodoL [Soma] 350 mg PO QID 09/17/17 12/31/17 09/17/17 10:00 Cetirizine HCl [All Day Allergy] 10 mg PO DAILY 12/31/17 12/31/17 Unknown DULoxetine [Cymbalta] 30 mg PO DAILY 12/31/17 12/31/17 Unknown Levothyroxine [Synthroid] 75 mcg PO DAILY 12/31/17 12/31/17 Unknown Montelukast [Singulair] 10 mg PO DAILY 12/31/17 12/31/17 Unknown Naproxen Sodium [Naproxen Sodium 375 mg PO BID 12/31/17 12/31/17 Unknown Cr 375mg] Testosterone Cypionate 200 mg IM QID 12/31/17 12/31/17 Unknown [Depo-Testosterone] dilTIAZem CD [Cardizem CD] 180 mg PO DAILY 12/31/17 12/31/17 Unknown Previous Rx's Medication Instructions Recorded Last Taken Type Clopidogrel [Plavix] 75 mg PO DAILY #30 tablet 09/19/17 Unknown Rx Pantoprazole [Protonix TAB] 40 mg PO DAILY #30 tablet 09/19/17 Unknown Rx ALPRAZolam [Xanax TAB] 0.5 mg PO TID PRN #20 tab 01/11/18 Unknown Rx Docusate Sodium [Colace CAP] 100 mg PO BID #60 capsule 01/11/18 Unknown Rx Morphine ER [Ms Contin ER] 15 mg PO Q8HR #30 tablet 01/11/18 Unknown Rx Ondansetron [Zofran Odt] 4 mg PO Q8H PRN #90 tab.rapdis 01/11/18 Unknown Rx Prochlorperazine [Compazine] 10 mg PO Q6HR #90 tablet 01/11/18 Unknown Rx oxyCODONE /ACETAMINOPHEN [Percocet 1 tab PO Q6HR PRN #20 tablet 01/11/18 Unknown Rx 5/325] Acetaminophen/Codeine [Tylenol 1 tab PO Q6H PRN #12 tab 12/26/21 Unknown Rx /Codeine # 3 tab] Ketorolac [Toradol] 10 mg PO Q6H PRN #12 tab 12/26/21 Unknown Rx Ondansetron [Zofran Odt] 4 mg PO Q8HR PRN #12 tab.rapdis 12/26/21 Unknown Rx Allergies Allergy/AdvReac Type Severity Reaction Status Date / Time moxifloxacin HCl Allergy Rash Verified 12/26/21 12:04 [From Avelox] peanut Allergy Swelling Verified 12/26/21 12:04 sulfamethoxazole Allergy Headache Verified 12/26/21 12:04 [From Bactrim] trimethoprim [From Bactrim] Allergy Headache Verified 12/26/21 12:04 ED Review of Systems ROS: Stated complaint: KIDNEY, RIGHT SIDE PAIN Other details as noted in HPI Comment: All other systems reviewed and negative Constitutional: denies: chills, fever, weakness Respiratory: denies: shortness of breath Cardiovascular: denies: chest pain, palpitations Gastrointestinal: abdominal pain, nausea. denies: vomiting, diarrhea, hematemesis, melena, hematochezia Genitourinary: dysuria. 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 Bx results pending) Hx Renal Disease: No Hx Sickle Cell Disease: No Hx Seizures: No Hx Asthma: No Hx COPD: No Hx HIV: No Additional medical history: AFIBHYPO THYROIDGOUTHIGH CHOL. cardiac stents x 2 - Surgical History Hx Coronary Stent: Yes (x 2) Additional Surgical History: cardiac albation - Social History Smoking Status: Never Smoker Substance Use Type: None - Medications Home Medications: Home Medications Medication Instructions Recorded Confirmed Last Taken Type Gabapentin [Neurontin] 800 mg PO TID 09/17/17 12/31/17 09/17/17 10:00 History carisoprodoL [Soma] 350 mg PO QID 09/17/17 12/31/17 09/17/17 10:00 History Clopidogrel [Plavix] 75 mg PO DAILY #30 tablet 09/19/17 12/31/17 Unknown Rx Pantoprazole [Protonix TAB] 40 mg PO DAILY #30 tablet 09/19/17 12/31/17 Unknown Rx Cetirizine HCl [All Day Allergy] 10 mg PO DAILY 12/31/17 12/31/17 Unknown History DULoxetine [Cymbalta] 30 mg PO DAILY 12/31/17 12/31/17 Unknown History Levothyroxine [Synthroid] 75 mcg PO DAILY 12/31/17 12/31/17 Unknown History Montelukast [Singulair] 10 mg PO DAILY 12/31/17 12/31/17 Unknown History Naproxen Sodium [Naproxen Sodium 375 mg PO BID 12/31/17 12/31/17 Unknown History Cr 375mg] Testosterone Cypionate 200 mg IM QID 12/31/17 12/31/17 Unknown History [Depo-Testosterone] dilTIAZem CD [Cardizem CD] 180 mg PO DAILY 12/31/17 12/31/17 Unknown History ALPRAZolam [Xanax TAB] 0.5 mg PO TID PRN #20 tab 01/11/18 Unknown Rx Docusate Sodium [Colace CAP] 100 mg PO BID #60 capsule 01/11/18 Unknown Rx Morphine ER [Ms Contin ER] 15 mg PO Q8HR #30 tablet 01/11/18 Unknown Rx Ondansetron [Zofran Odt] 4 mg PO Q8H PRN #90 tab.rapdis 01/11/18 Unknown Rx Prochlorperazine [Compazine] 10 mg PO Q6HR #90 tablet 01/11/18 Unknown Rx oxyCODONE /ACETAMINOPHEN [Percocet 1 tab PO Q6HR PRN #20 tablet 01/11/18 Unknown Rx 5/325] Acetaminophen/Codeine [Tylenol 1 tab PO Q6H PRN #12 tab 12/26/21 Unknown Rx /Codeine # 3 tab] Ketorolac [Toradol] 10 mg PO Q6H PRN #12 tab 12/26/21 Unknown Rx Ondansetron [Zofran Odt] 4 mg PO Q8HR PRN #12 tab.rapdis 12/26/21 Unknown Rx ED Physical Exam - General Limitations: No Limitations General appearance: alert, in no apparent distress - Head Head exam: Present: atraumatic, normocephalic - Eye Eye exam: Present: normal appearance. Absent: conjunctival injection - ENT ENT exam: Present: normal exam - Neck Neck exam: Present: normal inspection, full ROM. Absent: tenderness, lymphadenopathy - Respiratory Respiratory exam: Present: normal lung sounds bilaterally. Absent: respiratory distress, wheezes, rales, rhonchi, stridor, chest wall tenderness - Cardiovascular Cardiovascular Exam: Present: regular rate, normal heart sounds - GI/Abdominal GI/Abdominal exam: Present: soft, normal bowel sounds. Absent: distended, tenderness, guarding, rebound, rigid - Extremities Exam Extremities exam: Present: normal inspection, full ROM, normal capillary refill. Absent: tenderness, pedal edema, joint swelling, calf tenderness - Back Exam Back exam: Present: normal inspection, CVA tenderness (R). Absent: CVA tenderness (L), vertebral tenderness - Neurological Exam Neurological exam: Present: alert, oriented X3, CN II-XII intact, normal gait - Psychiatric Psychiatric exam: Present: normal affect, normal mood - Skin Skin exam: Present: warm, dry, intact, normal color ED Course Vital Signs 12/26/21 12:01 Temperature 98.7 F Pulse Rate 85 Respiratory 18 Rate Blood Pressure 131/87 [Left] O2 Sat by Pulse 99 Oximetry ED Medical Decision Making - Lab Data Result diagrams: 12/26/21 14:49 12/26/21 14:49 - Radiology Data Radiology results: report reviewed, image reviewed CT abdomen pelvis without contrast: FINDINGS: LOWER CHEST: Small calcified granuloma within the lingula. Mild right basilar subsegmental atelectasis. LIVER: There is an ill-defined heterogeneously hypodense mass within the right lobe the liver with scattered dystrophic calcifications measuring approximately 8.5 x 5.1 cm in axial cross-section (series 2 image 26). The hypodense margins of this mass may be enlarged as compared to prior exam dated 07/22/2018, however the lack of IV contrast limits definitive comparison. A new hypodense lesion is seen within the left lobe of the liver measuring 2.6 x 2.5 cm in axial cross- section (series 2 image 27). An additional hypodense lesion is seen within the inferior aspect of the right lobe of the liver measuring 1.7 x 2.0 cm in axial cross-section (series 2 image 75). Additional ill-defined hypodensities are seen within the dome of the liver as well as the superior aspect of the left lobe of the liver. GALLBLADDER: No significant abnormality. BILE DUCTS: A metallic clip is seen adjacent to the distal common bile duct. PANCREAS: No significant abnormality. SPLEEN: No significant abnormality. ADRENALS: No significant abnormality. RIGHT KIDNEY / URETER: There is a simple cyst within the right kidney. There are 2 mm nonobstructing calculi within the interpolar and inferior pole of the right kidney. No hydronephrosis. LEFT KIDNEY / URETER: 2 mm nonobstructing calculus within the superior pole of the left kidney. STOMACH / SMALL BOWEL: No significant abnormality. COLON: No significant abnormality. APPENDIX: No significant abnormality. PERITONEUM: No free fluid. No free air. No fluid collection. Small fat- containing umbilical hernia. LYMPH NODES: No significant adenopathy. AORTA / ARTERIES: No significant abnormality. IVC / VEINS: No significant abnormality. URINARY BLADDER: No significant abnormality. REPRODUCTIVE ORGANS: No significant abnormality. ADDITIONAL FINDINGS: An 11 mm soft tissue nodule is present within the right gluteal subcutaneous fat, likely representing a sebaceous cyst. SKELETAL SYSTEM: No significant abnormality. IMPRESSION: 1. Multiple ill-defined new and enlarging hypodense lesions throughout the liver in this patient with history of cholangiocarcinoma. This is concerning for progressive malignancy. There are posttreatment changes within the dominant mass within segment 7 of the liver, however the hypodense surrounding margin has increased in size. New hypodense lesions are seen throughout both lobes of the liver. Further evaluation with dedicated liver mass contrast-enhanced CT or MRI is recommended. 2. No evidence of extrahepatic spread of malignancy within the abdomen or pelvis. 3. Multiple small nonobstructing calculi bilaterally measuring up to 2 mm. - Medical Decision Making 51-year-old black male with a past medical history of cholangiocarcinoma, CAD with stents, HTN, and hypothyroidism presents to the emergency department for evaluation of 1 day history of right flank pain. He states that pain is associated with nausea and dysuria. He denies fever, active vomiting, dizziness, and diaphoresis. He states that pain is worse is [address] abdomen pelvis noted to have multiple kidney stones and probable progression of cancer. Patient states that he is aware of progression of cancer and is currently under treatment with his oncologist for it. Patient's pain will be treated and he will be given 1 L of fluid and discharged home with Toradol, Tylenol 3, and Zofran to use as directed. He is advised to follow-up with his oncologist and urology for further evaluation and management. He is advised to return to the emergency department as needed. He verbalizes understanding of and agreement with plan of care. Critical care attestation.: If time is entered above; I have spent that time in minutes in the direct care of this critically ill patient, excluding procedure time. ED Disposition Clinical Impression: Kidney stones Disposition: 01 HOME / SELF CARE / HOMELESS Is pt being admited?: No Does the pt Need Aspirin: No Condition: Stable Instructions: Kidney Stones, [id number] Additional Instructions: Take medications as prescribed. Follow-up with your primary care provider if no improvement or worsening symptoms. Return to the emergency department as needed. Prescriptions: Ketorolac [Toradol] 10 mg PO Q6H PRN #12 tab PRN Reason: Pain Acetaminophen/Codeine [Tylenol /Codeine # 3 tab] 1 tab PO Q6H PRN #12 tab PRN Reason: Pain , Severe (7-10) Ondansetron [Zofran Odt] 4 mg PO Q8HR PRN #12 tab.rapdis PRN Reason: Nausea And Vomiting Referrals: CLIFF SANTIAGO MD [Staff Physician] - 3-5 Days Time of Disposition: 18:29
[2021-12-26] MEDS ORDERED: MORPHINE 4 MG/1 ML INJ IV ONE (19:24)
== END 2021-12-26 20:34 | disposition home or self-care (01) ==
LOC: ED 11:44
DX: N20.0 Calculus of kidney (principal); I10 Essential (primary) hypertension; K76.9 Liver disease, unspecified; Z86.73 Personal history of transient ischemic attack (TIA), and cerebral infarction without residual deficits; Z91.09 Other allergy status, other than to drugs and biological substances; Z79.899 Other long term (current) drug therapy
CPT/HCPCS: 36415; 74176; 80053; 81001; 83690; 85027; 96361; 96374; 96375; 99284; J1885; J2270; J2405; J7030